=== PATIENT | male | born 1935 | race Caucasian/White ===

== ENCOUNTER 2016-10-03 06:16 | Observation (INO) | payer OTHER ==
[~2016-10-03] VITALS: Ht 180.3 cm; Wt 67.1 kg
[2016-10-03] VITALS (12 sets, daily range): BP systolic 120–169; BP diastolic 47–82
[~2016-10-03 06:16] MED LIST: AMLO5TAB2 PO; ASPI-482 PO; CLOP75TA PO; COLE3.753 PO; COLE625T12 PO; DONE5TAB56 PO; DOXY50CA PO; FINA5TAB4 PO; FURO40TA4 PO; HYDR12.53 PO; LISI40TA PO; MEMA5TAB PO; METO-269 PO; MULT-18 PO; NITR0.4T SL; OMEG1CAP27 PO; POTA20TA4 PO; PRAV40TA2 PO; SPIR25TA PO; TAMS0.4C97 PO
[2016-10-03] MEDS ORDERED: POTASSIUM CHLO10 MEQ PO (06:58)
[2016-10-03] MEDS ORDERED: MEMA28CA PO (06:58)
[2016-10-03] MEDS ORDERED: LOSA25TA4 PO (06:58)
[2016-10-03] MEDS ORDERED: DONE10TA7 PO (06:58)
[2016-10-03 07:08] LABS: HEMATOCRIT 48.9 % (39.0-53.0); HEMOGLOBIN 16.3 g/dL (13.0-17.5); RED BLOOD COUNT 5.15 x10^6/uL (4.30-5.70)
[2016-10-03 07:15] LABS: CALCIUM 9.6 mg/dL (8.5-10.1); CREATININE 1.2 mg/dL (0.7-1.3); POTASSIUM 4.2 mmol/L (3.5-5.1)
[2016-10-03] MEDS ORDERED: IODIXANOL 320 MG/ML 100 ML VIAL. ONE (07:17)
[2016-10-03] MEDS ORDERED: LIDOCAINE 2% 20 ML VIAL. ONE (07:17)
[2016-10-03 07:28] LABS: PROTHROMBIN TIME PATIENT 12.7 SEC (11.7-14.0)
[2016-10-03] MEDS ORDERED: NITROGLYCERIN 4 MG/20 ML SYRINGE for CATH LAB. ONE ×2 (08:00→08:06)
[2016-10-03] MEDS ORDERED: MIDAZOLAM HCL/PF 5 MG/5 ML VIAL. ONE (08:06)
[2016-10-03] MEDS ORDERED: dilTIAZem IV PUSH 25 MG/5 ML VIAL ONE (08:06)
[2016-10-03] MEDS ORDERED: fentaNYL PF VIAL 250 MCG/5 ML VIAL ONE (08:06)
[2016-10-03] MEDS ORDERED: HEPARIN for IV BOLUS 10,000 UNIT/10 ML VIAL. ONE ×2 (08:06→08:55)
--- NOTE | 2016-10-03 08:08 | PDOC ---
MODERATE SEDATION ASSESSMENT RISKS/ALTERNATIVES Risks/Alternatives Risks and alternatives of this type of sedation and procedure discussed with: RISK/ALTERNATIVES: Patient H & P ON CHART H & P H & P on chart and reviewed for co-morbid conditions and appropriate labs. H&P ON CHART: Yes STATUS PREG STATUS ASSESSED: N/A MEDS/ALLERGIES REVIEWED Meds/Allergies Reviewed Medications and Allergies including time and route of recently administered narcotics and sedatives. MEDS/ALLERGIES REVIEWED: Yes ASA RATING ASA RATING: II AIRWAY ASSESSMENT Airway Assessment Airway patency, oral function limitations, presence of caps, crowns, dentures, partials, and ability to extend neck assessed. AIRWAY ASSESSMENT: Yes MALLAMPATI SCORE MALLAMPATI SCORE: II PRE-SEDATION ASSESSMENT PRE-SEDATION ASSESSMENT: Yes JUAN R FUNES MD Oct 03, 2016 08:08
[2016-10-03] MEDS ORDERED: MIDAZOLAM HCL/PF 5 MG/5 ML VIAL. IV ONE (08:45)
[2016-10-03] MEDS ORDERED: LIDOCAINE 2% 20 ML VIAL. IJ ONE (08:45)
[2016-10-03] MEDS ORDERED: fentaNYL PF VIAL 250 MCG/5 ML VIAL IV ONE (08:45)
[2016-10-03] MEDS ORDERED: IODIXANOL 320 MG/ML 100 ML VIAL. IART ONE (08:45)
[2016-10-03] MEDS ORDERED: NITROGLYCERIN 200 MCG/2 ML SYRINGE FOR CATH/VASC LAB. ONE ×2 (08:55→09:23)
[2016-10-03] MEDS ORDERED: VERAPAMIL 5 MG/2 ML VIAL. ONE (08:55)
[2016-10-03] MEDS ORDERED: HEPARIN for IV BOLUS 10,000 UNIT/10 ML VIAL. IART ONE (09:00)
[2016-10-03] MEDS ORDERED: NITROGLYCERIN 200 MCG/2 ML SYRINGE FOR CATH/VASC LAB. IART ONE (09:00)
[2016-10-03] MEDS ORDERED: VERAPAMIL 5 MG/2 ML VIAL. IART ONE (09:00)
[2016-10-03] MEDS ORDERED: HEPARIN for IV BOLUS 10,000 UNIT/10 ML VIAL. IV ONE (10:15)
[2016-10-03] MEDS: IV 1/2 NORMAL SALINE 1,000 ML IV SCH ×2 (10:26→20:26)
[2016-10-03] MEDS ORDERED: ACETAMINOPHEN 325 MG TABLET. PO PRN (10:30)
[2016-10-03] MEDS ORDERED: NITROGLYCERIN SUBLINGUAL 0.4 MG BOTTLE OF 25. SL PRN ×2 (10:30→16:00)
--- NOTE | 2016-10-03 10:41 | CARD ---
APPROVED REPORT Patient StatusOUT-PATIENT Screedman: Ezekiel Puentes, RT (R) Procedure(s) performed: 1. Successful orbital atherectomy/HEALTH CARE SANITARY TECHNICIAN to the right superficial femoral arter y via right posterior tibial access 2. Successful balloon HEALTH CARE SANITARY TECHNICIAN to the right posterior tibial artery INDICATION FOR PROCEDURE The indication(s) include : 81-year-old male recently underwent atherectomy/HEALTH CARE SANITARY TECHNICIAN/stent placement to le ft superficial femoral artery on 08/05/16 for peripheral vascular disease with claudication. He presen michelle today for staged atherectomy/HEALTH CARE SANITARY TECHNICIAN to the right superficial femoral and right posterior tibial radha jermaine.. PROCEDURE NARRATIVE After explaining the risks, benefits and alternative options, informed consent was obtained from zayda ent. Patient was brought to the [facility] and his right foot was prepped and draped in the usua l fashion. Arterial access was obtained in the right posterior tibial artery under ultrasound guidanc e and 6 Cymraes sheath was inserted. A 4 Cymraes angled glide catheter was advanced over a 0.014 inch c ommand guidewire and with the tip positioned in right common femoral artery, angiography was performe d that confirmed the previously described multiple 70-90% stenoses in the mid and distal segments of right superficial femoral artery and 90% stenosis involving the proximal segment of the right posteri or tibial artery. The right anterior tibial artery showed 100% long and chronic total occlusion in th e proximal and mid segments with distal reconstitution from collaterals. The glide catheter was then exchanged over a 0.014 inch viper guidewire to a 1.5 CSI stealth orbital atherectomy catheter and multiple atherectomy passes were performed within the mid and distal segment s of the right superficial femoral artery. Following this, a 3.0 x 40 mm Lopez armada balloon was us ed to dilate the stenosis in the proximal segment of the right posterior tibial artery. A 5.5 x 1 20 mm Lopez armada balloon was then used to dilate the lesions in the mid and distal segments of the ri ght superficial femoral artery. Follow-up angiography showed resolution of all the stenoses to 0% wit h good distal flow. Patient tolerated the procedure well. Hemostasis was achieved using manual compre ssion after attempts to use TR band failed. There were no immediate complications. Conclusion Successful orbital atherectomy/HEALTH CARE SANITARY TECHNICIAN to the right superficial femoral artery and balloon HEALTH CARE SANITARY TECHNICIAN to the rig ht posterior tibial artery via right posterior tibial artery access.
[2016-10-03] MEDS: FUROSEMIDE 40 MG TABLET. PO SCH (17:00)
[2016-10-03] MEDS: DONEPEZIL HCL 10 MG TABLET. PO SCH (17:00)
[2016-10-03] MEDS: MULTIVITAMIN with MINERAL TABLET. PO SCH (17:00)
[2016-10-03] MEDS: POTASSIUM CHLORIDE 10 MEQ TABLET.ER. PO SCH (17:00)
[2016-10-03] MEDS: LOSARTAN POTASSIUM 25 MG TABLET. PO SCH (18:27)
[2016-10-03] MEDS ORDERED: TAMSULOSIN 0.4 MG CAP.ER.24H. PO SCH (21:00)
[2016-10-03] MEDS: OMEGA-3 FATTY ACIDS/FISH OIL 1,000 MG CAPSULE. PO SCH (21:29)
[2016-10-03] MEDS: MEMANTINE 10 MG TABLET. PO SCH (21:29)
[2016-10-04 03:23] VITALS: BP 141/55
[2016-10-04 05:02] LABS: CALCIUM 9.3 mg/dL (8.5-10.1); GFR 71.5; POTASSIUM 4.5 mmol/L (3.5-5.1)
[2016-10-04] MEDS: IV 1/2 NORMAL SALINE 1,000 ML IV SCH (06:26)
[2016-10-04 07:00] VITALS: BP 126/67
--- NOTE | 2016-10-04 08:37 | PDOC3 ---
CRISTELA DAVID FINISHING MACHINE OPERATOR 10/04/16 0837: Discharge Summary Visit Information Date of Admission: Oct 03, 2016 Date of Discharge: Oct 04, 2016 Admitting Diagnosis Comment: 1. PVD with claudication 2. ischemic cardiomyopathy, LVEF 35-40% 3 chronic systolic HF 4. CAD with history of PCI/CASSANDRA to RCA and LAD 5. HTN, benign essential 6. HLD with statin intolerance 7. tobacco abuse 8. Alzheimer's disease Final Diagnosis 1. PVD with claudication; s/p orbital atherectomy/SALES ENABLEMENT SPECIALIST to the right superficial femoral artery and balloon SALES ENABLEMENT SPECIALIST to the right posterior tibial artery 2. ischemic cardiomyopathy, LVEF 35-40% 3 chronic systolic HF 4. CAD with history of PCI/CASSANDRA to RCA and LAD 5. HTN, benign essential 6. HLD with statin intolerance 7. tobacco abuse 8. Alzheimer's disease Brief Hospital Course Allergies Allergies Coded Allergies Type Severity Reaction Last Updated Verified atorvastatin Adverse Reaction Intermediate 01/11/14 Yes rosuvastatin Adverse Reaction Intermediate MUSCLE PAIN 02/23/16 Yes Vital Signs Vital Signs Date Time Temp Pulse Resp B/P (MAP) Pulse Ox O2 Delivery O2 Flow Rate FiO2 10/04/16 07:00 98.1 88 19 126/67 (86) 95 Room Air 98.1 10/03/16 10:14 2.0 Lab Results Laboratory Tests Test 10/03/16 07:00 10/04/16 04:00 White Blood Count 10.0 x10^3/uL (4.0-11.0) Red Blood Count 5.15 x10^6/uL (4.30-5.70) Hemoglobin 16.3 g/dL (13.0-17.5) Hematocrit 48.9 % (39.0-53.0) Mean Corpuscular Volume 95 fL (79-100) Mean Corpuscular Hemoglobin 32 pg (25-35) Mean Corpuscular Hemoglobin Concent 33 g/dL (31-37) Red Cell Distribution Width 15.0 % (11.5-14.5) Platelet Count 251 x10^3/uL (140-400) Prothrombin Time 12.7 SEC (11.7-14.0) Prothromb Time International Ratio 1.0 (0.8-1.1) Activated Partial Thromboplast Time 32 SEC (24-38) Sodium Level 145 mmol/L (136-145) 143 mmol/L (136-145) Potassium Level 4.2 mmol/L (3.5-5.1) 4.5 mmol/L (3.5-5.1) Chloride Level 106 mmol/L (98-107) 107 mmol/L (98-107) Carbon Dioxide Level 33 mmol/L (21-32) 30 mmol/L (21-32) Anion Gap 6 (6-14) 6 (6-14) Blood Urea Nitrogen 27 mg/dL (8-26) 20 mg/dL (8-26) Creatinine 1.2 mg/dL (0.7-1.3) 1.0 mg/dL (0.7-1.3) Estimated GFR (Cockcroft-Gault) 58.0 71.5 Glucose Level 125 mg/dL (70-99) 109 mg/dL (70-99) Calcium Level 9.6 mg/dL (8.5-10.1) 9.3 mg/dL (8.5-10.1) Laboratory Tests Test 10/04/16 04:00 Sodium Level 143 mmol/L (136-145) Potassium Level 4.5 mmol/L (3.5-5.1) Chloride Level 107 mmol/L (98-107) Carbon Dioxide Level 30 mmol/L (21-32) Anion Gap 6 (6-14) Blood Urea Nitrogen 20 mg/dL (8-26) Creatinine 1.0 mg/dL (0.7-1.3) Estimated GFR (Cockcroft-Gault) 71.5 Glucose Level 109 mg/dL (70-99) Calcium Level 9.3 mg/dL (8.5-10.1) Brief Hospital Course Mr. Lawrence is a 81 old male returning for a staged intervention to the right SFA and SALES ENABLEMENT SPECIALIST. He previously underwent atherectomy/SALES ENABLEMENT SPECIALIST/stent placement to left superficial femoral artery on 08/05/16 and was re-evaluated in the office on 09/26. He was known to have significant residual stenosis in the right SFA and right anterior tibial arteries and intervention on those vessels was discussed with him. He underwent orbital atherectomy/SALES ENABLEMENT SPECIALIST to the right superficial femoral artery and balloon SALES ENABLEMENT SPECIALIST to the right posterior tibial artery via right posterior tibial artery access on 10/03/2016. He has been monitored overnight without complications. Right PT palpable and DP by Doppler, though faintly palpable this a.m. Right foot warm; no evidence of non-healing wounds or lesions. Discharge instructions given to patient and to be reviewed with nephew with whom he lives. Discharge Information Condition at Discharge: Stable Follow Up: Weeks (4 weeks with Cardiology; PCP in 7 - 10 days) Disposition/Orders: D/C to Home Scheduled Aspirin (Aspir 81), 1 TAB PO DAILY, (Reported) Clopidogrel Bisulfate (Clopidogrel), 75 MG PO DAILY Donepezil Hcl (Donepezil Hcl), 1 TAB PO DAILY, (Reported) Furosemide (Furosemide), 40 MG PO DAILY Losartan Potassium (Losartan Potassium), 25 MG PO DAILY, (Reported) Memantine Hcl (Namenda Xr), 28 MG PO DAILY, (Reported) Metoprolol Succinate (Toprol Xl), 50 MG PO DAILY, (Reported) Multivitamin (Daily Vitamin), 1 EACH PO DAILY, (Reported) Byers-3 Fatty Acids/Fish Oil (Fish Oil 1,000 Mg Softgel), 1 EACH PO BID Potassium Chloride (Potassium Chloride), 10 MEQ PO DAILY, (Reported) Tamsulosin Hcl (Flomax), 0.4 MG PO QHS Scheduled PRN Nitroglycerin (Nitrostat), 0.4 MG SL PRN Q5MIN PRN for CHEST PAIN Patient Instructions Patient Instructions GENERAL INSTRUCTIONS: 1. Your dressing should be removed prior to leaving the hospital. 2. It is OK to shower the day after your procedure. 3. If you received stents, be sure to carry your stent information card with you in your wallet/purse at all times. 4. Call the office immediately at [phone] if you notice any fever or if there is redness, worsening tenderness/pain, increased bruising, or drainage from the puncture site. 5. Should you have bleeding from the site, lie down immediately & put pressure on the site. The pressure should be hard enough to stop the bleeding. Have the nearest person call 911. DO NOT try to drive to the ER with active bleeding. 6. If you notice a change in color, coolness to touch, or loss of feeling in the affected extremity, come to the emergency room. Please have someone drive you or call 911 if no one is available. DO NOT drive yourself. 7. If you normally take glucophage (metformin), please do not take this medicine for 48 hours following your procedure. 8. DO NOT STOP TAKING YOUR PLAVIX OR ASPIRIN UNLESS IT IS CLEARED BY A CUSTOMER OPERATIONS SPECIALIST OF YOUR PRODUCE WRAPPER AT OUR OFFICE. 9. QUIT SMOKING: the [place] [employer], [employer] [employer], & [employer] [employer] have cessation resources available on their websites 10. Please have someone available to drive you home from the hospital as you may be limited by sedation medications given during the procedure. Femoral (Groin) access: 1. Do no lifting, pushing, pulling, bending, stooping, or recurrent stair climbing for 3 days following your procedure. 2. Once past the first 3 days, do not do any HEAVY exertion or lifting for one week following the procedure. No gym workouts, running, lifting greater than a gallon of milk, etc 3. Do not submerge in bath or pool for [address] 3 days following your procedure, but if going long distance, do not go alone & take hourly breaks to get out of car and walk around. Call the office at [phone] for any questions or concerns. WESTON STOREY MD 10/04/16 1009: Discharge Summary Brief Hospital Course Brief Hospital Course Pt. seen and examined. Agree with above CURTAIN STITCHER note. 81 y.o male s/p R SFA SALES ENABLEMENT SPECIALIST, No events overnight. R leg is warm to touch. Good PT pulse Ok to DC. Discharge Information Scheduled Aspirin (Aspir 81), 1 TAB PO DAILY, (Reported) Clopidogrel Bisulfate (Clopidogrel), 75 MG PO DAILY Donepezil Hcl (Donepezil Hcl), 1 TAB PO DAILY, (Reported) Furosemide (Furosemide), 40 MG PO DAILY Losartan Potassium (Losartan Potassium), 25 MG PO DAILY, (Reported) Memantine Hcl (Namenda Xr), 28 MG PO DAILY, (Reported) Metoprolol Succinate (Toprol Xl), 50 MG PO DAILY, (Reported) Multivitamin (Daily Vitamin), 1 EACH PO DAILY, (Reported) Byers-3 Fatty Acids/Fish Oil (Fish Oil 1,000 Mg Softgel), 1 EACH PO BID Potassium Chloride (Potassium Chloride), 10 MEQ PO DAILY, (Reported) Tamsulosin Hcl (Flomax), 0.4 MG PO QHS Scheduled PRN Nitroglycerin (Nitrostat), 0.4 MG SL PRN Q5MIN PRN for CHEST PAIN CRISTELA DAVID FINISHING MACHINE OPERATOR Oct 04, 2016 08:37 WESTON STOREY MD Oct 04, 2016 10:09
[2016-10-04] MEDS: FUROSEMIDE 40 MG TABLET. PO SCH (08:38)
[2016-10-04] MEDS: MEMANTINE 10 MG TABLET. PO SCH (08:38)
[2016-10-04] MEDS: POTASSIUM CHLORIDE 10 MEQ TABLET.ER. PO SCH (08:38)
[2016-10-04] MEDS: DONEPEZIL HCL 10 MG TABLET. PO SCH (08:38)
[2016-10-04] MEDS: OMEGA-3 FATTY ACIDS/FISH OIL 1,000 MG CAPSULE. PO SCH (08:38)
[2016-10-04] MEDS: MULTIVITAMIN with MINERAL TABLET. PO SCH (08:38)
[2016-10-04] MEDS: LOSARTAN POTASSIUM 25 MG TABLET. PO SCH (08:39)
[2016-10-04] MEDS ORDERED: CLOPIDOGREL BISULFATE 75 MG TABLET PO SCH (09:00)
[2016-10-04] MEDS ORDERED: ASPIRIN ENTERIC COATED 81 MG TABLET.DR. PO SCH (09:00)
[2016-10-04 11:09] VITALS: BP 143/57
== END 2016-10-04 14:00 | disposition home or self-care (01) ==
LOC: CCL 06:16 → 2 NORTH 09:25 → INTOOBSV 09:25 → 2 NORTH 10:45
PROVIDERS: ADMIT Internal Medicine Cardiovascular Disease; ATTEND Internal Medicine Cardiovascular Disease
DX: I73.9 Peripheral vascular disease, unspecified (principal); I25.5 Ischemic cardiomyopathy; I11.0 Hypertensive heart disease with heart failure; I50.22 Chronic systolic (congestive) heart failure; I25.10 Atherosclerotic heart disease of native coronary artery without angina pectoris; E78.5 Hyperlipidemia, unspecified; G30.9 Alzheimer's disease, unspecified; F02.80 Dementia in other diseases classified elsewhere, unspecified severity, without behavioral disturbance, psychotic disturbance, mood disturbance, and anxiety; Z72.0 Tobacco use; Z98.61 Coronary angioplasty status
CPT/HCPCS: 36415; 37225; 37228; 76937; 80048; 85027; 85610; 85730; C1769; C1885; C1892; C1894; G0378; G0379; J2250; J3010; J3490; J7030; 99156; 99157

== ENCOUNTER 2016-10-12 17:37 | Emergency (ER) | payer OTHER ==
[~2016-10-12] VITALS: Ht 177.8 cm; Wt 67.1 kg
[~2016-10-12 17:37] MED LIST changes: +DONE10TA7 PO; +LOSA25TA4 PO; +MEMA28CA PO; +POTASSIUM CHLO10 MEQ PO
--- NOTE | 2016-10-12 18:00 | PHYS DOC ---
Adult General Chief Complaint Chief Complaint: LOWER EXTREMITY SWELLING HPI HPI Patient is a 81 year old M who presents with increased swelling and numbness and tingling to the right lower extremity status post stent placement in the extremity last week. Patient denies any chest pain or shortness of breath. Patient denies any fevers. Patient denies any nausea/vomiting/diarrhea. Patient states the swelling in the right lower extremity was not as pronounced yesterday as it is today. Patient did not have numbness or tingling yesterday. Patient able to move all toes. Pertinent exam findings: +2 pitting edema to lower extremity bilaterally pulses obtained with Doppler ED course: Patient was seen and examined the emergency room CBC, CMP, lactic acid, ultrasound arterial the right lower extremity was ordered 1749: EKG shows normal sinus rhythm rate of 91 no STEMI 2024: Updated patient on ultrasound results and lab work and discussed possibly admitting the patient to the hospital. Patient adamantly states he does not want admitted to the hospital understanding all risks including and disability. Explained to the patient the concerns for possible arterial occlusion given his severe peripheral vascular disease and recommended patient be admitted for further observation and management. Pertinent findings: Arterial ultrasound of the right lower extremity, no arterial occlusion Lactic acid 1.4 MDM: After reviewing the chart, CC/HPI/PMH, physical exam, [lab results], [ radiological results], I do not believe the patient has acute arterial occlusion of the right lower extremity however the patient is high risk secondary to his severe peripheral vascular disease and recent stent placement. Recommended patient be admitted hospital for further evaluation and management in which he declined understanding all risks including and disability. Patient will be discharged home per his wishes. Commended patient follow-up with his PCP and vice president marketing & development in one to 2 days. Additional verbal discharge instructions were provided to the patient and that if symptoms get worse or any new symptoms arise that are worrisome to the patient he is to return to the emergency room immediately Review of Systems Review of Systems GEN: Denies fevers, chills, sweats HEENT: Denies blurred vision, sore throat CV: Denies chest pain RESP: Denies shortness of air, cough GI: Denies n/v/d NEURO: Denies confusion, dizziness MSK: Leg swelling Allergies Allergies Allergies Coded Allergies Type Severity Reaction Last Updated Verified atorvastatin Adverse Reaction Intermediate 01/11/14 Yes rosuvastatin Adverse Reaction Intermediate MUSCLE PAIN 11/12/16 Yes Physical Exam Physical Exam GEN.: No apparent distress. Alert and oriented. HEENT: Head is normocephalic, atraumatic NECK: Supple. LUNGS: CTAB. HEART: 4/6 MELLISA, S1, S2 present. Peripheral pulses intact ABDOMEN: Soft, nontender. Positive bowel sounds. EXTREMITIES: Without any cyanosis. +2 pitting edema to lower show is bilaterally with pulses obtained by Doppler, dorsal pedis and posterior tibialis NEUROLOGIC: Normal speech, normal tone PSYCHIATRIC: Normal affect, normal mood. SKIN: No ulcerations Current Patient Data Vital Signs Vital Signs Date Time Temp Pulse Resp B/P (MAP) Pulse Ox O2 Delivery O2 Flow Rate FiO2 10/12/16 19:15 72 18 165/60 (95) 99 Room Air 10/12/16 17:48 98.1 98.1 Lab Values Laboratory Tests Test 10/12/16 17:55 10/12/16 19:45 White Blood Count 11.5 x10^3/uL (4.0-11.0) H Red Blood Count 5.05 x10^6/uL (4.30-5.70) Hemoglobin 15.9 g/dL (13.0-17.5) Hematocrit 46.6 % (39.0-53.0) Mean Corpuscular Volume 92 fL (79-100) Mean Corpuscular Hemoglobin 32 pg (25-35) Mean Corpuscular Hemoglobin Concent 34 g/dL (31-37) Red Cell Distribution Width 13.9 % (11.5-14.5) Platelet Count 290 x10^3/uL (140-400) Neutrophils (%) (Auto) 58 % (31-73) Lymphocytes (%) (Auto) 23 % (24-48) L Monocytes (%) (Auto) 9 % (0-9) Eosinophils (%) (Auto) 8 % (0-3) H Basophils (%) (Auto) 2 % (0-3) Neutrophils # (Auto) 6.7 x10^3uL (1.8-7.7) Lymphocytes # (Auto) 2.7 x10^3/uL (1.0-4.8) Monocytes # (Auto) 1.0 x10^3/uL (0.0-1.1) Eosinophils # (Auto) 0.9 x10^3/uL (0.0-0.7) H Basophils # (Auto) 0.2 x10^3/uL (0.0-0.2) Sodium Level 139 mmol/L (136-145) Potassium Level 4.2 mmol/L (3.5-5.1) Chloride Level 102 mmol/L (98-107) Carbon Dioxide Level 29 mmol/L (21-32) Anion Gap 8 (6-14) Blood Urea Nitrogen 19 mg/dL (8-26) Creatinine 0.9 mg/dL (0.7-1.3) Estimated GFR (Cockcroft-Gault) 80.8 BUN/Creatinine Ratio 21 (6-20) H Glucose Level 113 mg/dL (70-99) H Calcium Level 9.5 mg/dL (8.5-10.1) Total Bilirubin 0.4 mg/dL (0.2-1.0) Aspartate Amino Transferase (AST) 23 U/L (15-37) Alanine Aminotransferase (ALT) 22 U/L (16-63) Alkaline Phosphatase 102 U/L (46-116) Total Protein 7.5 g/dL (6.4-8.2) Albumin 3.2 g/dL (3.4-5.0) L Albumin/Globulin Ratio 0.7 (1.0-1.7) L Lactic Acid Level 1.4 mmol/L (0.4-2.0) Laboratory Tests 10/12/16 17:55 Laboratory Tests 10/12/16 17:55 EKG EKG 1750: EKG shows normal sinus rhythm rate of 91 no STEMI[] Radiology/Procedures Radiology/Procedures Ultrasound of the right lower extremity arterial, peripheral vascular disease no acute arterial occlusion [] Course & Med Decision Making Course & Med Decision Making Pertinent Labs and Imaging studies reviewed. (See chart for details) [] Dragon Disclaimer Dragon Disclaimer This electronic medical record was generated, in whole or in part, using a voice recognition dictation system. Departure Departure Impression: Primary Impression: PVD (peripheral vascular disease) with claudication Additional Impression: Leg edema Disposition: HOME, SELF-CARE Condition: STABLE Referrals: YAQUELIN LUJAN MD (PCP) Patient Instructions: Peripheral Vascular Disease Additional Instructions: Please follow up with her family doctor in one to 2 days Problem Qualifiers CLARITA CHILEL DO Oct 12, 2016 18:00
[2016-10-12 18:06] LABS: BASO # 0.2 x10^3/uL (0.0-0.2); BASO % 2 % (0-3); EOS % 8 % (0-3); HEMATOCRIT 46.6 % (39.0-53.0); HEMOGLOBIN 15.9 g/dL (13.0-17.5); LYMPH # 2.7 x10^3/uL (1.0-4.8); LYMPH % 23 % (24-48); MEAN CORPUSCULAR HEMOGLOBIN 32 pg (25-35); MEAN CORPUSCULAR HGB CONC 34 g/dL (31-37); MEAN CORPUSCULAR VOLUME 92 fL (79-100); MONO % 9 % (0-9); NEUT % 58 % (31-73); PLATELET COUNT 290 x10^3/uL (140-400); RED BLOOD COUNT 5.05 x10^6/uL (4.30-5.70); RED CELL DISTRIBUTION WIDTH 13.9 % (11.5-14.5); WHITE BLOOD COUNT 11.5 x10^3/uL (4.0-11.0)
[2016-10-12 18:16] LABS: CALCIUM 9.5 mg/dL (8.5-10.1); CREATININE 0.9 mg/dL (0.7-1.3); GFR 80.8; POTASSIUM 4.2 mmol/L (3.5-5.1)
[2016-10-12 18:21] LABS: ALBUMIN 3.2 g/dL (3.4-5.0); ALBUMIN/GLOBULIN RATIO 0.7 (1.0-1.7); TOTAL BILIRUBIN 0.4 mg/dL (0.2-1.0); TOTAL PROTEIN 7.5 g/dL (6.4-8.2)
[2016-10-12 19:15] VITALS: BP 165/60
--- NOTE | 2016-10-12 19:41 | RAD ---
Examination: Ultrasound right lower extremity arterial duplex HISTORY: History of right foot swelling, stent in the right superior femoral artery COMPARISON: None available TECHNIQUE: Grayscale, color Doppler 2-D, spectral waveform analysis of the right lower extremity arterial system were performed FINDINGS: The velocity in the right common femoral artery is 196 cm/s. Deep femoral artery 190 cm/s. Proximal SFA 141 cm/s. Mid SFA 133 cm/s. Distal SFA 160 cm/s. Popliteal artery 86 cm/s. Proximal WELFARE SERVICE AIDE 99 cm/s. Distal WELFARE SERVICE AIDE 60 cm/s. Peroneal artery 45 cm Anterior tibialis artery 89 cm/s. Dorsalis pedis artery 46 cm/s. Biphasic waveforms identified in the CONCESSION SUPERVISOR, SFA, popliteal, anterior tibialis artery. Monophasic wave forms identified in the posterior tibialis artery, peroneal artery and dorsalis pedis artery. Atherosclerotic plaque identified through the right lower extremity arterial system. IMPRESSION: 1. No evidence of hemodynamic significant stenosis. 2. Atherosclerotic plaque identified throughout the right lower extremity arterial system. Monophasic and biphasic waveforms in the right lower extremity likely due to proximal atherosclerotic disease. Electronically signed by: Arron Hinds MD (10/12/2016 7:39 PM)
--- NOTE | 2016-10-13 07:00 | EKG ---
[facility] [address] [place] [address] Test Date: 2016-10-12 Test Time: 17:46:09 Pat Name: CRISTOFER RATLIFF Department: Room: Gender: M Microbiology Analyst: : [id number] Requested By: CLARITA CHILEL Order Number: [id number] Reading MD: Measurements Intervals [place] Rate: 91 P: 54 MT: 132 QRS: 30 QRSD: 108 T: -2 QT: 356 QTc: 440 Interpretive Statements SINUS RHYTHM LEFT ATRIAL ABNORMALITY QRS(T) CONTOUR ABNORMALITY CONSIDER ANTEROLATERAL MYOCARDIAL DAMAGE CONSISTENT WITH INFERIOR INFARCT AGE UNDETERMINED ABNORMAL ECG RI6.01 No previous ECG available for comparison
== END 2016-10-12 20:45 | disposition home or self-care (01) ==
LOC: ER 17:37
DX: I70.211 Atherosclerosis of native arteries of extremities with intermittent claudication, right leg (principal); Z88.8 Allergy status to other drugs, medicaments and biological substances
CPT/HCPCS: 36415; 80053; 83605; 85027; 93005; 93923; 99285-25

== ENCOUNTER → 2017-08-18 | Outpatient (CLI) | payer OTHER | END | disposition home or self-care (01) | LOC: KCIC 14:50 | DX: J44.9 Chronic obstructive pulmonary disease, unspecified (principal); F17.210 Nicotine dependence, cigarettes, uncomplicated; R63.4 Abnormal weight loss | CPT/HCPCS: 71046 ==

== ENCOUNTER → 2017-09-25 | Outpatient (CLI) | payer OTHER | END | disposition home or self-care (01) | LOC: ECHO 07:50 | DX: I50.22 Chronic systolic (congestive) heart failure (principal); I08.0 Rheumatic disorders of both mitral and aortic valves; E78.5 Hyperlipidemia, unspecified | CPT/HCPCS: 93306 ==

== ENCOUNTER 2019-12-23 21:55 | Inpatient (IN) | payer MEDICARE ==
[~2019-12-23] VITALS: Ht 172.7 cm; Wt 51.2 kg
[~2019-12-23 21:55] MED LIST changes: +ACET325T21 PO; +ALBU2.5V14 NEB; +AMLO5TAB10 PO; -AMLO5TAB2 PO; +ATOR40TA59 PO; +DONE5TAB7 PO; -HYDR12.53 PO; +HYDR12.575 PO; +IPRA0.2S5 NEB; +LISI-130 PO; -LISI40TA PO; -LOSA25TA4 PO; +LOSA25TA54 PO; -NITR0.4T SL; +NITR0.4T24 SL; +POLY2500 PO; +POTA10TA12 PO; -POTASSIUM CHLO10 MEQ PO; +SERT50TA PO; +SPIR25TA5 PO
--- NOTE | 2019-12-23 22:01 | PHYS DOC ---
Past Medical History Past Medical History: CAD, CHF, Dementia, Depression, High Cholesterol, H ypertension, Other Additional Past Medical Histor: PVD, CARDIOMYOPATHY, OSTEOARTHRITIS, BRADYCARDIA, BPH Past Surgical History: Other Additional Past Surgical Histo: STENTS Smoking Status: Current Every Day Smoker Alcohol Use: None Drug Use: None General Adult EDM: Chief Complaint: SHORT OF AIR HPI: HPI: Patient is a 84 year old male arrives via EMS with a chief complaint of shortness of breath. History physical review of systems are limited due to altered mental status. Reportedly patient has been battling pneumonia at the long term and is on baseline 4 L oxygen but they cannot keep it on him and has had low oxygen levels. Patient is satting 98 to 99% on 4 L here. On my assessment patient denies any pain any shortness of breath or any complaints. History physical review of systems limited due to altered mental status. Per report patient had a COVID-19 90 days ago Review of Systems: Review of Systems: Review of systems unobtainable due to altered mental status but patient denies any complaints Heart Score: Risk Factors: Risk Factors: DM, Current or recent (<one month) smoker, HTN, HLP, family history of CAD, obesity. Risk Scores: Score 0 - 3: 2.5% MACE over next 6 weeks - Discharge Home Score 4 - 6: 20.3% MACE over next 6 weeks - Admit for Clinical Observation Score 7 - 10: 72.7% MACE over next 6 weeks - Early Invasive Strategies Allergies: Allergies: Allergies Coded Allergies Type Severity Reaction Last Updated Verified No Known Drug Allergies 06/12/19 No Physical Exam: PE: Constitutional: Well developed, well nourished, no acute distress, non-toxic appearance. [] HENT: Normocephalic, atraumatic, bilateral external ears normal, slightly dry oral mucosa nose normal. [] Eyes: PERRLA, EOMI, conjunctiva normal, no discharge. [] Neck: Normal range of motion, no tenderness, supple, no stridor. [] Cardiovascular:Heart rate regular rhythm, peripheral pulses intact, cap refill brisk Lungs & Thorax: Diminished breath sounds bilaterally, right greater than left Abdomen: Soft nontender Skin: Warm, dry, no erythema, no rash. [] Back: No tenderness, no CVA tenderness. [] Extremities: 1+ bilateral lower extremity edema Neurologic: Alert and oriented X 1, normal motor function, normal sensory function, no focal deficits noted. [] Psychologic: Affect normal, judgement normal, mood normal. [] Current Patient Data: Labs: Laboratory Tests Test 12/23/19 22:52 12/23/19 23:25 White Blood Count 9.7 x10^3/uL Red Blood Count 4.16 x10^6/uL Hemoglobin 13.1 g/dL Hematocrit 40.0 % Mean Corpuscular Volume 96 fL Mean Corpuscular Hemoglobin 32 pg Mean Corpuscular Hemoglobin Concent 33 g/dL Red Cell Distribution Width 16.7 % Platelet Count 226 x10^3/uL Neutrophils (%) (Auto) 79 % Lymphocytes (%) (Auto) 11 % Monocytes (%) (Auto) 8 % Eosinophils (%) (Auto) 1 % Basophils (%) (Auto) 1 % Neutrophils # (Auto) 7.6 x10^3/uL Lymphocytes # (Auto) 1.0 x10^3/uL Monocytes # (Auto) 0.8 x10^3/uL Eosinophils # (Auto) 0.1 x10^3/uL Basophils # (Auto) 0.1 x10^3/uL Prothrombin Time 13.5 SEC Prothromb Time International Ratio 1.1 Activated Partial Thromboplast Time 28 SEC Lactic Acid Level 1.0 mmol/L Sodium Level 144 mmol/L Potassium Level 4.5 mmol/L Chloride Level 109 mmol/L Carbon Dioxide Level 32 mmol/L Anion Gap 3 Blood Urea Nitrogen 20 mg/dL Creatinine 0.9 mg/dL Estimated GFR (Cockcroft-Gault) 80.2 BUN/Creatinine Ratio 22 Glucose Level 154 mg/dL Calcium Level 8.9 mg/dL Total Bilirubin 0.4 mg/dL Aspartate Amino Transf (AST/SGOT) 19 U/L Alanine Aminotransferase (ALT/SGPT) 34 U/L Alkaline Phosphatase 112 U/L Troponin I Quantitative 0.101 ng/mL PP-Ylx-[id number]-Type Natriuretic Peptide > 87561 pg/mL Total Protein 6.1 g/dL Albumin 2.8 g/dL Albumin/Globulin Ratio 0.8 Lipase 39 U/L Current Medications Medications (Trade) Dose Ordered Sig/Yuni Route PRN Reason Start Time Stop Time Status Last Admin Dose Admin Piperacillin Sod/ Tazobactam Sod 3.375 gm/Sodium Chloride 50 ml @ 100 mls/hr 1X ONCE IV 12/23/19 23:30 12/23/19 23:59 DC 12/23/19 23:25 Levofloxacin/ Dextrose 150 ml @ 100 mls/hr 1X ONCE IV 12/23/19 23:30 12/24/19 00:59 DC 12/24/19 00:12 Furosemide (Lasix) 40 mg 1X ONCE IVP 12/23/19 23:30 12/23/19 23:31 DC 12/23/19 23:31 Aspirin (Aspirin Chewable) 324 mg 1X ONCE PO 12/24/19 01:00 12/24/19 01:01 DC Ondansetron HCl (Zofran) 4 mg PRN Q8HRS PRN IV NAUSEA/VOMITING 1ST CHOICE 12/24/19 00:45 12/25/19 00:44 Diltiazem HCl (Cardizem Iv Push) 10 mg 1X ONCE IVP 12/24/19 01:30 12/24/19 01:31 Diltiazem HCl 125 mg/Sodium Chloride 125 ml @ 5 mls/hr CONT PRN IV SEE I/O RECORD 12/24/19 01:30 EKG: EKG: [] EKG interpreted by il normal sinus rhythm with rate 85 normal axis frequent PVCs nonspecific ST changes normal intervals EKG interpreted by me atrial fibrillation with a rate of 128 normal axis, nonspecific ST changes Radiology/Procedures: Radiology/Procedures: [][facility] [address] [place] [address] IMAGING REPORT Signed PATIENT: CRISTOFER RATLIFF ACCOUNT: [id number] : 1935 LOCATION: ER AGE: 84 SEX: M EXAM STATUS: PRE ER ORD. PHYSICIAN: ABELARDO MCBRIDE MD REASON: COUGH PROCEDURE: PORTABLE CHEST 1V Examination: PORTABLE CHEST 1V History: COUGH / Comparison/Correlation: 06/12/2025 exam Findings: Portable upright frontal view of the chest was obtained. Heart size is normal. Pulmonary vasculature is congested. No pneumothorax. Right basilar moderate sized pleural effusion is present. Adjacent consolidation. Small left pleural effusion noted. Pulmonary vasculature is congested. Impression: Pulmonary vasculature congestion and moderate-sized right pleural effusion in the interval. Adjacent right basilar atelectasis or consolidation in the interval. Electronically signed by: Bertin Fitzpatrick MD (12/23/2019 10:32 PM) [facility] DICTATED and SIGNED BY: BERTIN FITZPATRICK MD DATE: 12/23/192231 Course & Med Decision Making: Course & Med Decision Making Pertinent Labs and Imaging studies reviewed. (See chart for details) [] 84-year-old male presents with shortness of breath. Patient not have CHF. Patient also has possible infiltrate and will be covered for hospital-acquired pneumonia. Patient be diuresed and given Lasix and aspirin. Discussed with Dr. Head who will admit. After admit orders written patient found to have heart rate jumped to 130. EKG shows A. fib with RVR. Cardizem bolus and drip has been ordered. Patient then had is rate controlled prior to Cardizem being administered. Dragon Disclaimer: Dragon Disclaimer: This electronic medical record was generated, in whole or in part, using a voice recognition dictation system. Departure Departure Impression: Primary Impression: Pleural effusion, right Additional Impressions: CHF (congestive heart failure) Atrial fibrillation with rapid ventricular response Disposition: ADMITTED INPATIENT Admitting Physician: Rick Head Condition: GUARDED Referrals: RICK HEAD MD (PCP) Justicifation of Admission Dx: Justifications for Admission: Justification of Admission Dx: Yes (CHF, EFFUSION ,HYPOXIA) ABELARDO MCBRIDE MD Dec 23, 2019 22:01
--- NOTE | 2019-12-23 22:34 | RAD ---
Examination: PORTABLE CHEST 1V History: COUGH / Comparison/Correlation: 06/12/2025 exam Findings: Portable upright frontal view of the chest was obtained. Heart size is normal. Pulmonary vasculature is congested. No pneumothorax. Right basilar moderate sized pleural effusion is present. Adjacent consolidation. Small left pleural effusion noted. Pulmonary vasculature is congested. Impression: Pulmonary vasculature congestion and moderate-sized right pleural effusion in the interval. Adjacent right basilar atelectasis or consolidation in the interval. Electronically signed by: Bertin Crain MD (12/23/2019 10:32 PM) [facility]
[2019-12-23 23:01] LABS: BASO # 0.1 x10^3/uL (0.0-0.2); BASO % 1 % (0-3); EOS # 0.1 x10^3/uL (0.0-0.7); EOS % 1 % (0-3); HEMOGLOBIN 13.1 g/dL (13.0-17.5); LYMPH % 11 % (24-48); MEAN CORPUSCULAR HEMOGLOBIN 32 pg (25-35); MEAN CORPUSCULAR HGB CONC 33 g/dL (31-37); MEAN CORPUSCULAR VOLUME 96 fL (79-100); MONO # 0.8 x10^3/uL (0.0-1.1); MONO % 8 % (0-9); NEUT # 7.6 x10^3/uL (1.8-7.7); NEUT % 79 % (31-73); PLATELET COUNT 226 x10^3/uL (140-400); RED BLOOD COUNT 4.16 x10^6/uL (4.30-5.70); RED CELL DISTRIBUTION WIDTH 16.7 % (11.5-14.5); WHITE BLOOD COUNT 9.7 x10^3/uL (4.0-11.0)
[2019-12-23 23:10] LABS: PROTHROMBIN TIME PATIENT 13.5 SEC (11.7-14.0)
[2019-12-23] MEDS ORDERED: FUROSEMIDE 40 MG/4 ML VIAL. IVP ONE (23:30)
[2019-12-23] MEDS ORDERED: PIPERACILLIN/TAZOBACTAM 3.375 GM in IV NORMAL SALINE 50ML 50 ML IV ONE (23:30)
[2019-12-23 23:45] LABS: CALCIUM 8.9 mg/dL (8.5-10.1); CREATININE 0.9 mg/dL (0.7-1.3); GFR 80.2; POTASSIUM 4.5 mmol/L (3.5-5.1)
[2019-12-23 23:51] LABS: ALBUMIN 2.8 g/dL (3.4-5.0); ALBUMIN/GLOBULIN RATIO 0.8 (1.0-1.7); TOTAL BILIRUBIN 0.4 mg/dL (0.2-1.0); TOTAL PROTEIN 6.1 g/dL (6.4-8.2)
[2019-12-24] MEDS ORDERED: ONDANSETRON PF 4 MG/2 ML VIAL. IV PRN (00:45)
[2019-12-24] MEDS ORDERED: ASPIRIN CHEWABLE 81 MG TABLET. PO ONE (01:00)
[2019-12-24] MEDS: dilTIAZem IV PUSH 25 MG/5 ML VIAL IVP ONE ×2 (01:22→01:30)
[2019-12-24] MEDS ORDERED: DILTIAZEM HCL 125 MG in IV NORMAL SALINE 100ML 100 ML IV PRN (01:30)
--- NOTE | 2019-12-24 02:15 | NUR ---
ADMISSION Pt arrival to room 262 at this time by ER cart. Pt transferred from bed to bed by scooting his self over to unit bed with cueing. Pt skin and bony prominences inspected at this time. Skin is intact, no wounds noted at this time. Pt bilat pedal has severe swelling 3 to 4+ pitting edema. The tops of the feet bilat have scant weeping although no open skin was directly observed. I applied bilat michelle hose and also elevated bilat lower legs on pillows. Pt is alert to self and states he is in a hospital but does not know which one. 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 I was unable to gather any admission information directly from the patient due to cognitive deficits at this time, and used the [facility] paperwork to fill out his admission questions. Pt will answer simple yes and no questions with some reliability. He denies pain and shows no non verbal signs of pain at this time. He is in sinus rhythm with frequent PVCs at time of admission, so the cardizem gtt ordered for his afib RVR that occurred briefly in the ER was not administered. He does have a history of afib. ONly belongings with the patient are a button up shirt and bathrobe. Pt resting comfortably in bed, continuous pulse ox is in use and bed alarm set. Call light and items in reach.
[2019-12-24 02:23] VITALS: BP 162/86
[2019-12-24] MEDS ORDERED: MIRT15TA90 PO (04:14)
[2019-12-24] MEDS ORDERED: ACET325T21 PO (04:14)
[2019-12-24] MEDS ORDERED: SENN1TAB99 PO (04:14)
[2019-12-24] MEDS ORDERED: CIPR500T94 PO (04:14)
[2019-12-24] MEDS ORDERED: ONDA4TAB12 PO (04:14)
--- NOTE | 2019-12-24 06:46 | PDOC ---
Infectious Disease Note Vital Sign Vital Signs Vital Signs Date Time Temp Pulse Resp B/P (MAP) Pulse Ox O2 Delivery O2 Flow Rate FiO2 12/24/19 02:30 Nasal Cannula 4.0 12/24/19 02:23 97.4 91 24 162/86 (111) 98 97.4 Labs Lab Laboratory Tests Test 12/23/19 22:52 12/23/19 23:25 White Blood Count 9.7 x10^3/uL (4.0-11.0) Red Blood Count 4.16 x10^6/uL (4.30-5.70) Hemoglobin 13.1 g/dL (13.0-17.5) Hematocrit 40.0 % (39.0-53.0) Mean Corpuscular Volume 96 fL (79-100) Mean Corpuscular Hemoglobin 32 pg (25-35) Mean Corpuscular Hemoglobin Concent 33 g/dL (31-37) Red Cell Distribution Width 16.7 % (11.5-14.5) Platelet Count 226 x10^3/uL (140-400) Neutrophils (%) (Auto) 79 % (31-73) Lymphocytes (%) (Auto) 11 % (24-48) Monocytes (%) (Auto) 8 % (0-9) Eosinophils (%) (Auto) 1 % (0-3) Basophils (%) (Auto) 1 % (0-3) Neutrophils # (Auto) 7.6 x10^3/uL (1.8-7.7) Lymphocytes # (Auto) 1.0 x10^3/uL (1.0-4.8) Monocytes # (Auto) 0.8 x10^3/uL (0.0-1.1) Eosinophils # (Auto) 0.1 x10^3/uL (0.0-0.7) Basophils # (Auto) 0.1 x10^3/uL (0.0-0.2) Prothrombin Time 13.5 SEC (11.7-14.0) Prothromb Time International Ratio 1.1 (0.8-1.1) Activated Partial Thromboplast Time 28 SEC (24-38) Lactic Acid Level 1.0 mmol/L (0.4-2.0) Sodium Level 144 mmol/L (136-145) Potassium Level 4.5 mmol/L (3.5-5.1) Chloride Level 109 mmol/L (98-107) Carbon Dioxide Level 32 mmol/L (21-32) Anion Gap 3 (6-14) Blood Urea Nitrogen 20 mg/dL (8-26) Creatinine 0.9 mg/dL (0.7-1.3) Estimated GFR (Cockcroft-Gault) 80.2 BUN/Creatinine Ratio 22 (6-20) Glucose Level 154 mg/dL (70-99) Calcium Level 8.9 mg/dL (8.5-10.1) Total Bilirubin 0.4 mg/dL (0.2-1.0) Aspartate Amino Transf (AST/SGOT) 19 U/L (15-37) Alanine Aminotransferase (ALT/SGPT) 34 U/L (16-63) Alkaline Phosphatase 112 U/L (46-116) Troponin I Quantitative 0.101 ng/mL (0.000-0.055) VP-Nnz-L-Type Natriuretic Peptide > 48680 pg/mL (0-449) Total Protein 6.1 g/dL (6.4-8.2) Albumin 2.8 g/dL (3.4-5.0) Albumin/Globulin Ratio 0.8 (1.0-1.7) Lipase 39 U/L (73-393) Objective Assessment CHF - BNP >35,000 R pleural effusion Dementia H/o Bradycardia Had been on Cipro starting 12/18 Plan Plan of Care Does not seem to have an active infection. Hold further abx and monitor May need Pleural effusion evaluated for thoracentesis if cannot diuresis Thank you # [id number] JORGE ALBERTO TRIVEDI MD Dec 24, 2019 06:46
[2019-12-24 07:00] VITALS: BP 128/71
--- NOTE | 2019-12-24 07:40 | CONS ---
DATE OF CONSULTATION: 12/24/2019 INFECTIOUS DISEASE CONSULTATION LOCATION: The patient's room 262. REQUESTING PHYSICIAN: Dr. Head. REASON FOR CONSULTATION: Questionable pneumonia. HISTORY OF PRESENT ILLNESS: The patient is an 84-year-old correction resident with a history of dementia, congestive heart failure, who according to the [facility] records has been on Cipro for unclear reasons since the 12/19/2019. He was brought to [facility] with complaints of shortness of air and reported battling pneumonia at the correction, he was on 4 L of oxygen. He was satting 98-99% on 4 liters here. He reportedly had COVID 3 months ago. On arrival, his white count was 9.7 and he had 99% neutrophils, but he has been afebrile. His BNP was greater than 35,000. His chest x-ray showed pulmonary vascular congestion and moderate right-sided pleural effusion. He was given a dose of Zosyn and levofloxacin and admitted to the hospital. Currently, the patient is lying comfortably in bed. He denies fevers or chills or sweats. He denies any cough or shortness of air. He has no headaches. No nausea, vomiting, diarrhea, constipation. No dysuria, frequency or urgency. Denies any pain in his legs. PAST MEDICAL HISTORY: Positive for coronary artery disease, ischemic cardiomyopathy, history of EF of 25-30% in 2018, chronic systolic congestive heart failure, hyperlipidemia, osteoarthritis, ischemic cardiomyopathy, peripheral arterial disease, severe Alzheimer's disease, history of bradycardia. PAST SURGICAL HISTORY: History of atherectomy, angioplasty of the left superficial femoral artery and the right superficial femoral artery, right tibial artery, left anterior descending angioplasty stent, cataract extraction. REVIEW OF SYSTEMS: Otherwise negative such mentioned above. ALLERGIES: No known drug allergies. SOCIAL HISTORY: He is a correction resident. No tobacco. He does have a history of smoking. FAMILY HISTORY: Noncontributory. CURRENT MEDICATIONS: Include Cardizem and he did receive levofloxacin x 1, Zosyn x 1, aspirin, Lasix. He was taking Cipro at this facility as well as sertraline, finasteride, mirtazapine, Senokot, memantine, atorvastatin. PHYSICAL EXAMINATION: VITAL SIGNS: He is afebrile, temperature 97.4, pulse 91, respirations 24, blood pressure 162/86, satting 98% on 4 liters. CONSTITUTIONAL: He is lying in bed. He is cooperative. He is in no acute distress. He responds to questions. He has normal conjunctivae. Oral cavity, oropharynx is clear, somewhat dry. NECK: Without fullness. Good range of motion. HEART: With S1, S2. LUNGS: Decreased in the bases, no wheeze. ABDOMEN: Soft, nontender, no guarding or rebound. EXTREMITIES: Without clubbing, cyanosis. He has MACARIO hose in place with trace edema. SKIN: Warm to touch without signs of rash. NEUROLOGIC: Nonfocal, answers questions, but moves all extremities. PSYCHIATRIC: Affect is appropriate. LABORATORY VALUES: White count 9.7, hemoglobin 13.1, platelets of 226, segs are 79, lymphs are 11, creatinine 0.9. Normal liver function study tests. Troponins elevated at 0.101. BNP of greater than 35,000. Lipase was 39. RADIOLOGY: Reviewed in history of present illness. IMPRESSION: 1. Congestive heart failure with BNP greater than 35,000. 2. Right pleural effusion. 3. Dementia. 4. History of bradycardia. 5. He had been on Cipro starting 12/19/2019. RECOMMENDATIONS: Currently, he does not seem to be consistent with active infection. We will hold further antibiotics and monitor. May need pleural effusion. Evaluate for thoracentesis if cannot diurese. Thank you for allowing me to see and participate in the patient's care. Should you have any further questions, please do not hesitate to contact me. JORGE ALBERTO TRIVEDI MD DR: TRISTAN/cielo JOB#: [id number] / [id number] SHAMIR
[2019-12-24] MEDS ORDERED: INFLUENZA VAX SCREEN BY RX. MC ONE (09:00)
[2019-12-24 10:52] VITALS: BP 127/74
[2019-12-24] MEDS ORDERED: FUROSEMIDE 40 MG/4 ML VIAL. IVP ONE (11:30)
[2019-12-24] MEDS ORDERED: ACETAMINOPHEN 325 MG TABLET. PO PRN (13:15)
[2019-12-24] MEDS ORDERED: NITROGLYCERIN SUBLINGUAL 0.4 MG BOTTLE OF 25. SL PRN (13:15)
[2019-12-24] MEDS ORDERED: MAGNESIUM HYDROXIDE 2,400 MG/30 ML ORAL.SUSP. PO PRN (13:15)
--- NOTE | 2019-12-24 13:34 | PDOC ---
Provider Note Date of Service: DATE: 12/24/19 TIME: 13:33 Provider Note history and physical dictated # [id number] Justifications for Admission Other Justification YAQUELIN LUJAN MD Dec 24, 2019 13:34
--- NOTE | 2019-12-24 13:55 | HP ---
ADMIT DATE: 12/24/2019 LOCATION: Room 262. HISTORY OF PRESENT ILLNESS: The patient is an 84-year-old white male, resident of a [facility]pc, cared for by another physician, who has a history of ischemic cardiomyopathy with left ventricular ejection fraction of 30-35% on echocardiogram done in 2019, who has coronary artery disease, peripheral arterial disease, chronic systolic congestive heart failure, Alzheimer disease and hyperlipidemia. Apparently had a recent COVID-19 infection about 3 months ago and was admitted to [facility] at the Emergency Room on 12/24/2019 with an onset of shortness of breath. He is a poor historian. He is a do not resuscitate. He was given IV Lasix. He feels better. He is sitting up, eating lunch. He is on oxygen per nasal cannula, recently decreased from 4-3 liters this morning. In the Emergency Room, his chest x-ray shows a pulmonary vascular congestion and a moderate right-sided pleural effusion. He did receive a dose of IV Zosyn and Levaquin. Also received IV Lasix. His BNP was greater than 35,000. He was, therefore, admitted for acute on chronic systolic congestive heart failure with acute hypoxic respiratory failure. ALLERGIES AND INTOLERANCES: ARICEPT, WHICH CAUSED BRADYCARDIA. MEDICATIONS: Prior to admission; he is on sertraline 100 mg every day, Cipro 500 mg b.i.d. for unclear reasons, Ventolin inhaler two puffs q.i.d. for 10 days, tamsulosin 0.4 mg every day, finasteride 5 mg every day, mirtazapine 7.5 mg at bedtime, Senokot one tablet every day, Namenda extended release 28 mg every day, potassium chloride 10 mEq every day, multiple vitamin once a day, atorvastatin 40 mg at bedtime, nitroglycerin 0.4 mg sublingual p.r.n. At the last hospital stay, for some reason, he is not on his aspirin 81 mg every day, Plavix 75 mg every day, spironolactone 25 mg every day, Lasix 40 mg every day and losartan 25 mg every day. PAST MEDICAL HISTORY: Significant for hospitalization at [facility] in 06/2019 with a left-sided pneumothorax secondary to mechanical fall, which resolved on its own without any intervention. He has got an ischemic cardiomyopathy with left ventricular ejection fraction of 30-35% as noted on echocardiogram in 06/2019. Chronic systolic congestive heart failure. He had sinus bradycardia, so metoprolol and Aricept has been discontinued in the past. Coronary artery disease, peripheral arterial disease, hyperlipidemia, Alzheimer disease, premature ventricular contractions. He has a history of an atherectomy and angioplasty to the left superficial femoral artery in 07/2016 and also had similar procedures of right femoral artery and right tibial artery in 2017. He had a left anterior descending artery angioplasty and stent placed in 2016. Right cataract extraction, Alzheimer disease. SOCIAL HISTORY: Apparently lives in a fpc. Does not drink alcohol. He did smoke in the past. FAMILY HISTORY: Also unavailable due to his dementia. REVIEW OF SYSTEMS: Unobtainable and unreliable due to his severe dementia. PHYSICAL EXAMINATION: VITAL SIGNS: Temperature is 97.3 degrees, heart rate of 69. He has got some premature ventricular contractions, respiratory rate 26, blood pressure 127/74, oxygen saturation was 90% on 4 liters per nasal cannula. Most recently, it was better than that. HEENT: Gaze is conjugate. Neck is supple. Mouth: Tongue is midline. NECK: No cervical lymphadenopathy. HEART: Reveals an S1, S2. There is no S3 or murmur. LUNGS: Reveal decreased breath sounds bilaterally with some crackles in the left lung base. ABDOMEN: Soft in the sitting position. EXTREMITIES: Lower extremities got 2+ bipedal edema. GENERAL APPEARANCE: He has got cachexia, especially involving his legs. NEUROLOGIC: Revealed no focal weakness of extremities or facial asymmetry. LABORATORY DATA: Review of his laboratory tests: White count 9.7, hemoglobin 13.1, platelet count 226,000, 79 polys and 11 lymphocytes. INR 1.1 with a PTT of 28. Sodium 144, potassium 4.5, chloride 109, total CO2 of 32 with a BUN of 20, creatinine 0.9, blood sugar 154. Liver function tests were normal. Troponin level is 0.01. ProBNP was greater than 35,000. Albumin was 2.8, lipase was 39. He had a chest x-ray done, which was consistent with pulmonary vascular congestion, moderate size right pleural effusion like he has some right basilar atelectasis. I could not find this electrocardiogram on the chart. It was ordered. ASSESSMENT: 1. Acute on chronic systolic congestive heart failure. 2. Ischemic cardiomyopathy. 3. Coronary artery disease with previous coronary angioplasty and stent. 4. Peripheral arterial disease. 5. Alzheimer's disease. 6. Right pleural effusion. 7. Acute hypoxic respiratory failure. 8. Severe protein-calorie malnutrition. 9. Hyperlipidemia. PLAN: Consults; Dr. Ivey has already seen the patient. Also, the patient was already consulted by the Infectious Disease, Dr. Aguayo, who stopped the antibiotics, thinking that the patient did not have any evidence of pneumonia. The patient will receive an another dose of IV Lasix today and put him on Lasix 40 mg IV daily. We will resume his aspirin and Plavix. Spironolactone and losartan were stopped at the [facility] that he was on previously earlier this year. We will also order SCDs for deep vein thrombosis prophylaxis. Consult Dr. Arriaga regarding the right pleural effusion to see if he needs to have a therapeutic thoracentesis. Continue with his oxygen. Again, we will check a lipid profile, basic metabolic profile and magnesium level tomorrow. He is a do not resuscitate. YAQUELIN LUJAN MD DR: GLENDA/cielo JOB#: [id number] / [id number]
[2019-12-24] MEDS: ASPIRIN 325 MG TABLET PO SCH (14:02)
[2019-12-24] MEDS: CLOPIDOGREL BISULFATE 75 MG TABLET PO SCH (14:02)
--- NOTE | 2019-12-24 14:51 | PDOC2 ---
CONSULT Date of Consult Date of Consult DATE: 12/24/19 TIME: 14:44 Reason for Consult Reason for Consult: Congestive heart failure Referring Physician Referring Physician: Dr. Head Identification/Chief Complaint Chief Complaint Shortness of breath Source Source: Caregiver, Chart review, Patient History of Present Illness Reason for Visit: The patient is an 84-year-old male who was admitted from the emergency room for episodes of increasing shortness of breath and mildly decreased mental status changes. He has a history of an ischemic cardiomyopathy with his last echocardiogram on 07/01/2019 showing ejection fraction of 30 to 35% with global hypokinesis and mild to moderate aortic insufficiency. A heart catheterization on 02/22/2016 showed significant LAD disease which was stented. Previously sten ts placed in the right coronary artery were widely patent. Ejection fraction was 35%. Chest x-ray on admission shows heart failure as well as a moderate right-sided pleural effusion. Troponin levels were 0.101. BNP is significant elevated 35,000. EKG shows an atrial fibrillation which initially required treatment with IV Cardizem it which is now in the rate control. No acute ischemic changes are noted. In addition the patient was reportedly positive for COVID approximately 3 months ago. This morning after diuresis is much more comfortable. He denies chest pain. Reports mild shortness of breath. He has baseline dementia. Past Medical History Cardiovascular: CAD, CHF, HTN, Hyperlipidemia, Valve insufficiency, Other Pulmonary: COPD CENTRAL NERVOUS SYSTEM: Dementia GI: No pertinent hx Heme/Onc: No pertinent hx Hepatobiliary: No pertinent hx Psych: No pertinent hx Musculoskeletal: Osteoarthritis Rheumatologic: No pertinent hx Infectious disease: No pertinent hx Renal/: Benign prostatic enlarg. Endocrine: No pertinent hx Past Surgical History Past Surgical History: Tonsillectomy, Other (Coronary stents to the LAD and right coronary artery.) Family History Family History: Heart Disease, Hypertension Social History <1 pack per day ALCOHOL: none Drugs: None Lives: Detention Current Problem List Problem List Problems Medical Problems: (1) Atrial fibrillation with rapid ventricular response Status: Acute (2) CHF (congestive heart failure) Status: Acute (3) Pleural effusion, right Status: Acute Current Medications Current Medications Current Medications Piperacillin Sod/ Tazobactam Sod 3.375 gm/Sodium Chloride 50 ml @ 100 mls/hr 1X ONCE IV Last administered on 12/23/19at 23:25; Start 12/23/19 at 23:30; Stop 12/23/19 at 23:59; Status DC Levofloxacin/ Dextrose 150 ml @ 100 mls/hr 1X ONCE IV Last administered on 12/24/19at 00:12; Start 12/23/19 at 23:30; Stop 12/24/19 at 00:59; Status DC Furosemide (Lasix) 40 mg 1X ONCE IVP Last administered on 12/23/19at 23:31; Start 12/23/19 at 23:30; Stop 12/23/19 at 23:31; Status DC Aspirin (Aspirin Chewable) 324 mg 1X ONCE PO Last administered on 12/24/19at 01:22; Start 12/24/19 at 01:00; Stop 12/24/19 at 01:01; Status DC Ondansetron HCl (Zofran) 4 mg PRN Q8HRS PRN IV NAUSEA/VOMITING 1ST CHOICE; Start 12/24/19 at 00:45; Stop 12/25/19 at 00:44 Diltiazem HCl (Cardizem Iv Push) 10 mg 1X ONCE IVP ; Start 12/24/19 at 01:30; Stop 12/24/19 at 01:31; Status DC Diltiazem HCl 125 mg/Sodium Chloride 125 ml @ 5 mls/hr CONT PRN IV SEE I/O RECORD; Start 12/24/19 at 01:30 Info (FLU VACCINE SCREEN per RX) 1 each 1X ONCE MC ; Start 12/24/19 at 09:00; Stop 12/24/19 at 09:01; Status UNV Furosemide (Lasix) 40 mg 1X ONCE IVP Last administered on 12/24/19at 11:51; Start 12/24/19 at 11:30; Stop 12/24/19 at 11:31; Status DC Furosemide (Lasix) 40 mg DAILY IVP ; Start 12/25/19 at 09:00 Aspirin (Silke Aspirin) 81 mg DAILYWBKFT PO Last administered on 12/24/19at 14:02; Start 12/24/19 at 14:00 Clopidogrel Bisulfate (Plavix) 75 mg DAILYWBKFT PO Last administered on 12/24/19at 14:02; Start 12/24/19 at 14:00 Spironolactone (Aldactone) 25 mg DAILY PO ; Start 12/25/19 at 09:00 Losartan Potassium (Cozaar) 25 mg DAILY PO ; Start 12/25/19 at 09:00 Sertraline HCl (Zoloft) 100 mg DAILY PO ; Start 12/25/19 at 09:00 Tamsulosin HCl (Flomax) 0.4 mg QHS PO ; Start 12/24/19 at 21:00 Finasteride (Proscar) 5 mg DAILY PO ; Start 12/25/19 at 09:00 Mirtazapine (Remeron) 7.5 mg QHS PO ; Start 12/24/19 at 21:00 Acetaminophen (Tylenol) 650 mg PRN Q6HRS PRN PO RECTAL PAIN; Start 12/24/19 at 13:15 Senna/Docusate Sodium (Senna Plus) 1 tab DAILY PO ; Start 12/25/19 at 09:00 Memantine (Namenda) 10 mg BID PO ; Start 12/24/19 at 21:00 Multivitamins (Thera M Plus) 1 tab DAILY PO ; Start 12/25/19 at 09:00 Atorvastatin Calcium (Lipitor) 40 mg QHS PO ; Start 12/24/19 at 21:00 Nitroglycerin (Nitrostat) 0.4 mg PRN Q5MIN PRN SL CHEST PAIN; Start 12/24/19 at 13:15 Magnesium Hydroxide (Milk Of Magnesia) 2,400 mg PRN DAILY PRN PO CONSTIPATION; Start 12/24/19 at 13:15 Active Scripts Active Flomax (Tamsulosin Hcl) 0.4 Mg Cap.er.24h 0.4 Mg PO QHS Nitrostat (Nitroglycerin) 0.4 Mg Tab.subl 0.4 Mg SL PRN Q5MIN PRN Reported Acetaminophen 325 Mg Tablet 2 Tab PO PRN Q6HRS PRN 30 Days Senna-Docusate Sodium Tablet (Sennosides/Docusate Sodium) 1 Each Tablet 1 Tab PO DAILY 20 Days Ondansetron Odt (Ondansetron) 4 Mg Tab.rapdis 1 Tab PO PRN Q6-8HRS Mirtazapine 15 Mg Tab.rapdis 1 Tab PO QHS 30 Days Cipro (Ciprofloxacin Hcl) 500 Mg Tablet 1 Tab PO BID 2 Days Zoloft (Sertraline Hcl) 50 Mg Tablet 100 Mg PO DAILY Polyethylene Glycol 3350 2,500 Gm Powder 17 Gm PO DAILY PRN Finasteride 5 Mg Tablet 1 Tab PO DAILY Atorvastatin Calcium 40 Mg Tablet 1 Tab PO DAILY Albuterol Sulfate Conc Neb Soln (Albuterol Sulfate) 2.5 Mg/0.5 Ml Vial.neb 1 Vial NEB Q6HRS PRN Acetaminophen 325 Mg Tablet 2 Tab PO PRN Q6HRS PRN 30 Days Potassium Chloride (Potassium Chloride) 10 Meq Capsule.er 10 Meq PO DAILY Namenda Xr (Memantine Hcl) 28 Mg Cap.spr.24 28 Mg PO DAILY Daily Vitamin (Multivitamin) 1 Each Tablet 1 Each PO DAILY Allergies Allergies: Coded Allergies: donepezil (Verified Allergy, Intermediate, BRADYCARDIA, 12/24/19) Bradycardia ROS Respiratory: YES: Shortness of breath, SOB with excertion Neurological: Yes Confusion Physical Exam General: mild distress HEENT: Atraumatic Lungs: Other (Decreased breath sounds) Heart: Other (Irregularly irregular) Abdomen: Normal bowel sounds Vitals VITALS Vital Signs Date Time Temp Pulse Resp B/P (MAP) Pulse Ox O2 Delivery O2 Flow Rate FiO2 12/24/19 10:52 97.3 69 26 127/74 (91) 90 Nasal Cannula 4.0 97.3 Labs Labs Laboratory Tests Test 12/23/19 22:52 12/23/19 23:25 White Blood Count 9.7 x10^3/uL (4.0-11.0) Red Blood Count 4.16 x10^6/uL (4.30-5.70) Hemoglobin 13.1 g/dL (13.0-17.5) Hematocrit 40.0 % (39.0-53.0) Mean Corpuscular Volume 96 fL (79-100) Mean Corpuscular Hemoglobin 32 pg (25-35) Mean Corpuscular Hemoglobin Concent 33 g/dL (31-37) Red Cell Distribution Width 16.7 % (11.5-14.5) Platelet Count 226 x10^3/uL (140-400) Neutrophils (%) (Auto) 79 % (31-73) Lymphocytes (%) (Auto) 11 % (24-48) Monocytes (%) (Auto) 8 % (0-9) Eosinophils (%) (Auto) 1 % (0-3) Basophils (%) (Auto) 1 % (0-3) Neutrophils # (Auto) 7.6 x10^3/uL (1.8-7.7) Lymphocytes # (Auto) 1.0 x10^3/uL (1.0-4.8) Monocytes # (Auto) 0.8 x10^3/uL (0.0-1.1) Eosinophils # (Auto) 0.1 x10^3/uL (0.0-0.7) Basophils # (Auto) 0.1 x10^3/uL (0.0-0.2) Prothrombin Time 13.5 SEC (11.7-14.0) Prothromb Time International Ratio 1.1 (0.8-1.1) Activated Partial Thromboplast Time 28 SEC (24-38) Lactic Acid Level 1.0 mmol/L (0.4-2.0) Sodium Level 144 mmol/L (136-145) Potassium Level 4.5 mmol/L (3.5-5.1) Chloride Level 109 mmol/L (98-107) Carbon Dioxide Level 32 mmol/L (21-32) Anion Gap 3 (6-14) Blood Urea Nitrogen 20 mg/dL (8-26) Creatinine 0.9 mg/dL (0.7-1.3) Estimated GFR (Cockcroft-Gault) 80.2 BUN/Creatinine Ratio 22 (6-20) Glucose Level 154 mg/dL (70-99) Calcium Level 8.9 mg/dL (8.5-10.1) Total Bilirubin 0.4 mg/dL (0.2-1.0) Aspartate Amino Transf (AST/SGOT) 19 U/L (15-37) Alanine Aminotransferase (ALT/SGPT) 34 U/L (16-63) Alkaline Phosphatase 112 U/L (46-116) Troponin I Quantitative 0.101 ng/mL (0.000-0.055) UL-Pae-I-Type Natriuretic Peptide > 02501 pg/mL (0-449) Total Protein 6.1 g/dL (6.4-8.2) Albumin 2.8 g/dL (3.4-5.0) Albumin/Globulin Ratio 0.8 (1.0-1.7) Lipase 39 U/L (73-393) Laboratory Tests Test 12/23/19 22:52 12/23/19 23:25 White Blood Count 9.7 x10^3/uL (4.0-11.0) Red Blood Count 4.16 x10^6/uL (4.30-5.70) Hemoglobin 13.1 g/dL (13.0-17.5) Hematocrit 40.0 % (39.0-53.0) Mean Corpuscular Volume 96 fL (79-100) Mean Corpuscular Hemoglobin 32 pg (25-35) Mean Corpuscular Hemoglobin Concent 33 g/dL (31-37) Red Cell Distribution Width 16.7 % (11.5-14.5) Platelet Count 226 x10^3/uL (140-400) Neutrophils (%) (Auto) 79 % (31-73) Lymphocytes (%) (Auto) 11 % (24-48) Monocytes (%) (Auto) 8 % (0-9) Eosinophils (%) (Auto) 1 % (0-3) Basophils (%) (Auto) 1 % (0-3) Neutrophils # (Auto) 7.6 x10^3/uL (1.8-7.7) Lymphocytes # (Auto) 1.0 x10^3/uL (1.0-4.8) Monocytes # (Auto) 0.8 x10^3/uL (0.0-1.1) Eosinophils # (Auto) 0.1 x10^3/uL (0.0-0.7) Basophils # (Auto) 0.1 x10^3/uL (0.0-0.2) Prothrombin Time 13.5 SEC (11.7-14.0) Prothromb Time International Ratio 1.1 (0.8-1.1) Activated Partial Thromboplast Time 28 SEC (24-38) Lactic Acid Level 1.0 mmol/L (0.4-2.0) Sodium Level 144 mmol/L (136-145) Potassium Level 4.5 mmol/L (3.5-5.1) Chloride Level 109 mmol/L (98-107) Carbon Dioxide Level 32 mmol/L (21-32) Anion Gap 3 (6-14) Blood Urea Nitrogen 20 mg/dL (8-26) Creatinine 0.9 mg/dL (0.7-1.3) Estimated GFR (Cockcroft-Gault) 80.2 BUN/Creatinine Ratio 22 (6-20) Glucose Level 154 mg/dL (70-99) Calcium Level 8.9 mg/dL (8.5-10.1) Total Bilirubin 0.4 mg/dL (0.2-1.0) Aspartate Amino Transf (AST/SGOT) 19 U/L (15-37) Alanine Aminotransferase (ALT/SGPT) 34 U/L (16-63) Alkaline Phosphatase 112 U/L (46-116) Troponin I Quantitative 0.101 ng/mL (0.000-0.055) HO-Jyo-U-Type Natriuretic Peptide > 12872 pg/mL (0-449) Total Protein 6.1 g/dL (6.4-8.2) Albumin 2.8 g/dL (3.4-5.0) Albumin/Globulin Ratio 0.8 (1.0-1.7) Lipase 39 U/L (73-393) Images Images Chest x-ray with vascular congestion and a moderate right-sided pleural effusion Assessment/Plan Assessment/Plan 1. Acute on chronic systolic heart failure. Ejection fraction on echocardiogram earlier this year was 30 to 35%. Patient has improved post diuresis. We will continue diuresis and monitoring lab. Will trend troponins which have been minimally elevated 0.1. 2. Coronary artery disease. Catheterization in 2016 showed patent right coronary stents and a new lead placed stent to the LAD. No typical chest pain. No significant elevation in troponin at this time. Continuing medical treatment. 3. Atrial fibrillation. Initially treated with IV Cardizem. We will continue Cardizem at this time and convert to oral medications tomorrow. 4. Hypertension. Under better control. Continue present treatment. 5. History of peripheral vascular disease. No reports of leg pain. Continuing present treatment. 6. Hyperlipidemia. Will check lab. 7. Right-sided pleural effusion. Has also been recently treated for probable pneumonia. Patient will be seen by ID and pulmonary. 8. Dementia. Patient improved overnight from his initial presentation in the ER. Thank you for allowing us to participate in the care of your patient. RODRIGUEZ MOE MD Dec 24, 2019 14:51
[2019-12-24 15:05] VITALS: BP 145/70
[2019-12-24 19:45] VITALS: BP 184/88
[2019-12-24] MEDS: MEMANTINE 10 MG TABLET. PO SCH (21:19)
[2019-12-24] MEDS: TAMSULOSIN 0.4 MG CAP.ER.24H. PO SCH (21:19)
[2019-12-24] MEDS: ATORVASTATIN CALCIUM 40 MG TABLET. PO SCH (21:19)
[2019-12-24] MEDS: MIRTAZAPINE 7.5 MG TABLET. PO SCH (21:19)
[2019-12-24 23:40] VITALS: BP 133/84
[2019-12-25 03:00] VITALS: BP 120/61
[2019-12-25 07:00] VITALS: BP 155/63
--- NOTE | 2019-12-25 07:25 | PDOC ---
Infectious Disease Note Subjective Subjective Denies F/C/s/N/V/D/ a little SOA at times. no gross cough Not hungry now Vital Sign Vital Signs Vital Signs Date Time Temp Pulse Resp B/P (MAP) Pulse Ox O2 Delivery O2 Flow Rate FiO2 12/25/19 03:00 97.4 56 18 120/61 (80) 91 Nasal Cannula 2.5 97.4 Physical Exam PHYSICAL EXAM CONSTITUTIONAL: He is lying in bed. He is cooperative. He is in no acute distress. He responds to questions. Looks a little more tired today HEENT: He has normal conjunctivae. Oral cavity, oropharynx is clear, somewhat dry. NECK: Without fullness. Good range of motion. HEART: With S1, S2. LUNGS: Decreased in the bases, no wheeze. ABDOMEN: Soft, nontender, no guarding or rebound. EXTREMITIES: Without clubbing, cyanosis. He has MACARIO hose in place with trace edema. SKIN: Warm to touch without signs of rash. NEUROLOGIC: Nonfocal, answers questions, but moves all extremities. PSYCHIATRIC: Affect is appropriate Labs Micro Microbiology 12/23/19 Blood Culture - Preliminary, Resulted NO GROWTH AFTER 1 DAY Objective Assessment CHF - BNP >35,000 R pleural effusion Dementia H/o Bradycardia Had been on Cipro starting 12/18 Plan Plan of Care Does not seem to have an active infection. Hold further abx and monitor May need Pleural effusion evaluated for thoracentesis if cannot diuresis JORGE ALBERTO TRIVEDI MD Dec 25, 2019 07:25
[2019-12-25 07:29] LABS: CALCIUM 8.8 mg/dL (8.5-10.1); CHOLESTEROL/HDL RATIO 2.5; MAGNESIUM 2.1 mg/dL (1.8-2.4)
[2019-12-25] MEDS: IPRATRPIUM/ALBUTEROL 0.5/2.5MG 3 ML NEBU. NEB SCH ×4 (08:00→21:07)
--- NOTE | 2019-12-25 08:02 | CONS ---
DATE OF CONSULTATION: 12/25/2019 REASON FOR CONSULTATION: I was asked to see this 84-year-old gentleman for [id number] respiratory failure, pleural effusion. HISTORY OF PRESENT ILLNESS: The patient has advanced Alzheimer's and he is not able to give me any information. He answers all my questions, but most of the information was obtained from chart. He is a assisted resident and was brought to the Emergency Room for shortness of breath and altered mental status. He does have history of ischemic cardiomyopathy with ejection fraction 30-35%, [id number] aortic insufficiency. He has coronary artery disease, status post stent. His BNP is elevated more than 35,000. Apparently, he is on oxygen at assisted. He is currently on 2 liters of oxygen. He appears comfortable. When I asked him if he has shortness of breath, he said he does not know. He says he did smoke previously. Per ER note, the patient had COVID-19, 90 days ago. He was found to be in AFib and was started on Cardizem drip, now in sinus rhythm. PAST MEDICAL HISTORY: Coronary artery disease, ischemic cardiomyopathy, systolic CHF, dementia, hypertension, peripheral vascular disease, arthritis, stent placement. ALLERGIES: DONEPEZIL. MEDICATIONS: Currently, he is on Lasix 40 mg IV daily, multivitamin, Zoloft, Cozaar, Aldactone, Lipitor, Namenda, Remeron, Flomax, Plavix, aspirin, Cardizem. SOCIAL HISTORY: Positive for smoking, details are not known. Lives in a assisted. FAMILY HISTORY: Unable to obtain due to his dementia. REVIEW OF SYSTEMS: Unable to obtain due to his severe dementia. PHYSICAL EXAMINATION: GENERAL: This is an elderly gentleman. VITAL SIGNS: His O2 saturation on 2.5 liters of oxygen is 94%, respiratory rate 16, heart rate 56, blood pressure 133/84, and temperature 97.4. HEENT: Normocephalic, atraumatic. Pupils are equal, round, and reactive to light. Nose is clear. NECK: Positive JVD. No lymphadenopathy or thyromegaly. CARDIOVASCULAR: Regular rate and rhythm. PMI is not displaced. CHEST: Inspection is normal. LUNGS: There are bibasilar crackles, dullness at the right base. ABDOMEN: Soft. Bowel sounds are good. There is no mass. EXTREMITIES: There is no edema. LYMPHATICS: There is no lymphadenopathy. NEUROLOGIC: Alert. SKIN: Chronic changes. LABORATORY DATA: I reviewed the following lab data; chest x-ray showed right infiltrate/effusion/atelectasis. WBC 9.7, hemoglobin 13.1, and platelets 226. Sodium 144, potassium 4.5, chloride 109, CO2 of 32, BUN 20, creatinine 0.9. BNP more than 35,000. Troponin 0.0101. Lactic acid 1. IMPRESSION: 1, Acute on chronic respiratory failure secondary to acute systolic congestive heart failure, right pleural effusion, atelectasis. 2. Abnormal chest x-ray, effusion/infiltrate/atelectasis. 3. Ischemic cardiomyopathy. 4. Acute systolic congestive heart failure. 5. Chronic obstructive pulmonary disease. 6. Alzheimer's. 7. Paroxysmal atrial fibrillation, now in sinus rhythm. PLAN AND RECOMMENDATIONS: 1. Titrate FiO2 to keep O2 saturation 92%. 2. Start bronchodilator. 3. I agree with Lasix IV. May need higher dose per Cardiology. 4. I reviewed the chest x-ray. There is effusion/atelectasis/infiltrate. I will do a CT of the chest to evaluate the size of pleural effusion. He may require thoracentesis. Of note, he is on Plavix. 5. ID is consulted. Thank you very much for allowing me to participate in care of this very nice gentleman. NICOLASA PALACIOS M.D. DR: WESLEY/cielo JOB#: [id number] / [id number] SHAMIR
[2019-12-25] MEDS: SERTRALINE 50 MG TABLET. PO SCH (08:28)
[2019-12-25] MEDS: SENNOSIDES/DOCUSATE 8.6/50MG TABLET. PO SCH (08:29)
[2019-12-25] MEDS: MEMANTINE 10 MG TABLET. PO SCH ×2 (08:29→20:00)
[2019-12-25] MEDS: ASPIRIN 325 MG TABLET PO SCH (08:29)
[2019-12-25] MEDS: MULTIVITAMIN with MINERAL TABLET. PO SCH (08:29)
[2019-12-25] MEDS: SPIRONOLACTONE 25 MG TABLET PO SCH (08:29)
[2019-12-25] MEDS: FINASTERIDE 5 MG TABLET. PO SCH (08:29)
[2019-12-25] MEDS: LOSARTAN POTASSIUM 25 MG TABLET. PO SCH (08:29)
[2019-12-25] MEDS: CLOPIDOGREL BISULFATE 75 MG TABLET PO SCH (08:29)
[2019-12-25] MEDS ORDERED: FUROSEMIDE 40 MG/4 ML VIAL. IVP SCH (09:00)
--- NOTE | 2019-12-25 09:32 | RAD ---
STUDY: CT chest without contrast INDICATION: Pleural effusion. COMPARISON: None. TECHNIQUE: Helical CT imaging of the chest performed without the use of intravenous contrast. Sagittal and coronal reformats were obtained. One or more of the following individualized dose reduction techniques were utilized for this examination: 1. Automated exposure control 2. Adjustment of the mA and/or kV according to patient size 3. Use of iterative reconstruction technique. FINDINGS: Vasculature/heart: Extensive calcific atheromatous plaque scattered throughout the aorta, visualized great vessels and involving the coronary arteries. No aortic aneurysmal dilatation. Particularly dense plaque at the left subclavian artery origin but the degree of stenosis is uncertain without contrast. The heart is enlarged. Aortic annular mineralization. Main and central pulmonary artery transverse dimension of less than 3 cm. Mediastinum/jasiel: Relatively small pericardial effusion. No appreciable lymphadenopathy by size criteria. Lungs: Paraseptal more so than centrilobular emphysema. Moderate volume pleural effusion on the right with fluid extending into an azygos fissure. Small pleural effusion on the left. Right more so than left atelectasis with the majority of the right lower lobe collapsed. Scattered calcifications such as at the apices. A few areas of groundglass infiltrates on the right such as peripherally within the right middle lobe, images 41 through 45, series 2. Neck/axilla/chest wall: No axillary adenopathy. Mild gynecomastia. Bones: Osteopenia. Multifocal degenerative changes. No acute or aggressive osseous process. Upper abdomen: Generalized hypertrophy of the left adrenal gland without a dominant mass. Less pronounced hypertrophy of the right adrenal gland. Probable small calcified gallstone, image 76 series 2. IMPRESSION: 1. Moderate right and small left pleural effusions with overlying passive atelectasis with near complete collapse of the right lower lobe. These pleural effusions are seen in the setting of cardiomegaly and are favored transudative such as from congestive heart failure. Small pericardial effusion as well. 2. Emphysema. A few groundglass infiltrates are seen in the right lung. No findings of an organizing pneumonia but a mild atypical infectious process is not excluded. 3. Extensive calcific atherosclerosis to include involvement of the coronary arteries. Particularly dense calcific plaque at the left subclavian origin with the degree of associated stenosis uncertain without contrast. 4. Additional chronic observations as detailed above. 5. Electronically signed by: ARLENE REAGAN MD (12/25/2019 9:29 AM) [id number]
--- NOTE | 2019-12-25 10:24 | PDOC ---
PROGRESS NOTES Date of Service DATE: 12/25/19 TIME: 10:22 Subjective Subjective Patient seen and examined Objective Objective Vital Signs Date Time Temp Pulse Resp B/P (MAP) Pulse Ox O2 Delivery O2 Flow Rate FiO2 12/25/19 08:29 63 155/63 12/25/19 07:00 97.6 20 91 Nasal Cannula 2.0 97.6 Intake and Output 12/25/19 07:00 Intake Total 820 ml Output Total 1550 ml Balance -730 ml Intake Oral 820 ml Output Urine Total 1550 ml # Voids 1 Physical Exam Abdomen: Normal bowel sounds Heart: Regular rate General: mild distress Lungs: Other (Mildly decreased breath sounds) Assessment Assessment Problems Medical Problems: (1) Atrial fibrillation with rapid ventricular response Status: Acute (2) CHF (congestive heart failure) Status: Acute (3) Pleural effusion, right Status: Acute 1. Acute on chronic systolic heart failure. Ejection fraction on echocardiogram earlier this year was 30 to 35%. Patient has continued to i etienneove. We will continue present treatment and monitor lab. 2. Coronary artery disease. Catheterization in 2015 showed patent right coronary stents and a new lead placed stent to the LAD. No typical chest pain. No significant elevation in troponin at this time. Continuing medical treatment. 3. Atrial fibrillation. Initially treated with IV Cardizem. Convert to oral medications tomorrow. 4. Hypertension. Under better control. Continue present treatment. 5. History of peripheral vascular disease. No reports of leg pain. Continuing present treatment. 6. Hyperlipidemia. 7. Right-sided pleural effusion. Has also been recently treated for probable pneumonia. Patient will be seen by ID and pulmonary. 8. Dementia. Patient improved from his initial presentation in the ER. Comment Review of Relevant I have reviewed the following items deloris (where applicable) has been applied. Labs Laboratory Tests Test 12/23/19 22:52 12/23/19 23:25 12/25/19 06:45 White Blood Count 9.7 x10^3/uL (4.0-11.0) Red Blood Count 4.16 x10^6/uL (4.30-5.70) Hemoglobin 13.1 g/dL (13.0-17.5) Hematocrit 40.0 % (39.0-53.0) Mean Corpuscular Volume 96 fL (79-100) Mean Corpuscular Hemoglobin 32 pg (25-35) Mean Corpuscular Hemoglobin Concent 33 g/dL (31-37) Red Cell Distribution Width 16.7 % (11.5-14.5) Platelet Count 226 x10^3/uL (140-400) Neutrophils (%) (Auto) 79 % (31-73) Lymphocytes (%) (Auto) 11 % (24-48) Monocytes (%) (Auto) 8 % (0-9) Eosinophils (%) (Auto) 1 % (0-3) Basophils (%) (Auto) 1 % (0-3) Neutrophils # (Auto) 7.6 x10^3/uL (1.8-7.7) Lymphocytes # (Auto) 1.0 x10^3/uL (1.0-4.8) Monocytes # (Auto) 0.8 x10^3/uL (0.0-1.1) Eosinophils # (Auto) 0.1 x10^3/uL (0.0-0.7) Basophils # (Auto) 0.1 x10^3/uL (0.0-0.2) Prothrombin Time 13.5 SEC (11.7-14.0) Prothromb Time International Ratio 1.1 (0.8-1.1) Activated Partial Thromboplast Time 28 SEC (24-38) Lactic Acid Level 1.0 mmol/L (0.4-2.0) Sodium Level 144 mmol/L (136-145) 145 mmol/L (136-145) Potassium Level 4.5 mmol/L (3.5-5.1) 4.0 mmol/L (3.5-5.1) Chloride Level 109 mmol/L (98-107) 105 mmol/L (98-107) Carbon Dioxide Level 32 mmol/L (21-32) 38 mmol/L (21-32) Anion Gap 3 (6-14) 2 (6-14) Blood Urea Nitrogen 20 mg/dL (8-26) 20 mg/dL (8-26) Creatinine 0.9 mg/dL (0.7-1.3) 1.0 mg/dL (0.7-1.3) Estimated GFR (Cockcroft-Gault) 80.2 71.0 BUN/Creatinine Ratio 22 (6-20) Glucose Level 154 mg/dL (70-99) 82 mg/dL (70-99) Calcium Level 8.9 mg/dL (8.5-10.1) 8.8 mg/dL (8.5-10.1) Total Bilirubin 0.4 mg/dL (0.2-1.0) Aspartate Amino Transf (AST/SGOT) 19 U/L (15-37) Alanine Aminotransferase (ALT/SGPT) 34 U/L (16-63) Alkaline Phosphatase 112 U/L (46-116) Troponin I Quantitative 0.101 ng/mL (0.000-0.055) RJ-Rmi-R-Type Natriuretic Peptide > 57356 pg/mL (0-449) Total Protein 6.1 g/dL (6.4-8.2) Albumin 2.8 g/dL (3.4-5.0) Albumin/Globulin Ratio 0.8 (1.0-1.7) Lipase 39 U/L (73-393) Magnesium Level 2.1 mg/dL (1.8-2.4) Triglycerides Level 69 mg/dL (0-150) Cholesterol Level 151 mg/dL (0-200) LDL Cholesterol, Calculated 76 mg/dL (0-100) VLDL Cholesterol, Calculated 14 mg/dL (0-40) Non-HDL Cholesterol Calculated 90 mg/dL (0-129) HDL Cholesterol 61 mg/dL (40-60) Cholesterol/HDL Ratio 2.5 Laboratory Tests Test 12/25/19 06:45 Sodium Level 145 mmol/L (136-145) Potassium Level 4.0 mmol/L (3.5-5.1) Chloride Level 105 mmol/L (98-107) Carbon Dioxide Level 38 mmol/L (21-32) Anion Gap 2 (6-14) Blood Urea Nitrogen 20 mg/dL (8-26) Creatinine 1.0 mg/dL (0.7-1.3) Estimated GFR (Cockcroft-Gault) 71.0 Glucose Level 82 mg/dL (70-99) Calcium Level 8.8 mg/dL (8.5-10.1) Magnesium Level 2.1 mg/dL (1.8-2.4) Triglycerides Level 69 mg/dL (0-150) Cholesterol Level 151 mg/dL (0-200) LDL Cholesterol, Calculated 76 mg/dL (0-100) VLDL Cholesterol, Calculated 14 mg/dL (0-40) Non-HDL Cholesterol Calculated 90 mg/dL (0-129) HDL Cholesterol 61 mg/dL (40-60) Cholesterol/HDL Ratio 2.5 Microbiology 12/23/19 Blood Culture - Preliminary, Resulted NO GROWTH AFTER 1 DAY Medications Current Medications Piperacillin Sod/ Tazobactam Sod 3.375 gm/Sodium Chloride 50 ml @ 100 mls/hr 1X ONCE IV Last administered on 12/23/19at 23:25; Start 12/23/19 at 23:30; Stop 12/23/19 at 23:59; Status DC Levofloxacin/ Dextrose 150 ml @ 100 mls/hr 1X ONCE IV Last administered on 12/24/19at 00:12; Start 12/23/19 at 23:30; Stop 12/24/19 at 00:59; Status DC Furosemide (Lasix) 40 mg 1X ONCE IVP Last administered on 12/23/19at 23:31; Start 12/23/19 at 23:30; Stop 12/23/19 at 23:31; Status DC Aspirin (Aspirin Chewable) 324 mg 1X ONCE PO Last administered on 12/24/19at 01:22; Start 12/24/19 at 01:00; Stop 12/24/19 at 01:01; Status DC Ondansetron HCl (Zofran) 4 mg PRN Q8HRS PRN IV NAUSEA/VOMITING 1ST CHOICE; Start 12/24/19 at 00:45; Stop 12/25/19 at 00:44; Status DC Diltiazem HCl (Cardizem Iv Push) 10 mg 1X ONCE IVP ; Start 12/24/19 at 01:30; Stop 12/24/19 at 01:31; Status DC Diltiazem HCl 125 mg/Sodium Chloride 125 ml @ 5 mls/hr CONT PRN IV SEE I/O RECORD; Start 12/24/19 at 01:30 Info (FLU VACCINE SCREEN per RX) 1 each 1X ONCE MC ; Start 12/24/19 at 09:00; Stop 12/24/19 at 09:01; Status UNV Furosemide (Lasix) 40 mg 1X ONCE IVP Last administered on 12/24/19at 11:51; Start 12/24/19 at 11:30; Stop 12/24/19 at 11:31; Status DC Furosemide (Lasix) 40 mg DAILY IVP ; Start 12/25/19 at 09:00 Aspirin (Silke Aspirin) 81 mg DAILYWBKFT PO Last administered on 12/25/19 08:29; Start 12/24/19 at 14:00 Clopidogrel Bisulfate (Plavix) 75 mg DAILYWBKFT PO Last administered on 12/25/19 08:29; Start 12/24/19 at 14:00 Spironolactone (Aldactone) 25 mg DAILY PO Last administered on 12/25/19 08:29; Start 12/25/19 at 09:00 Losartan Potassium (Cozaar) 25 mg DAILY PO Last administered on 12/25/19 08:29; Start 12/25/19 at 09:00 Sertraline HCl (Zoloft) 100 mg DAILY PO Last administered on 12/25/19 08:28; Start 12/25/19 at 09:00 Tamsulosin HCl (Flomax) 0.4 mg QHS PO Last administered on 12/24/19 21:19; Start 12/24/19 at 21:00 Finasteride (Proscar) 5 mg DAILY PO Last administered on 12/25/19 08:29; Start 12/25/19 at 09:00 Mirtazapine (Remeron) 7.5 mg QHS PO Last administered on 12/24/19 21:19; Start 12/24/19 at 21:00 Acetaminophen (Tylenol) 650 mg PRN Q6HRS PRN PO RECTAL PAIN; Start 12/24/19 at 13:15 Senna/Docusate Sodium (Senna Plus) 1 tab DAILY PO Last administered on 12/25/19 08:29; Start 12/25/19 at 09:00 Memantine (Namenda) 10 mg BID PO Last administered on 12/25/19 08:29; Start 12/24/19 at 21:00 Multivitamins (Thera M Plus) 1 tab DAILY PO Last administered on 12/25/19 08:29; Start 12/25/19 at 09:00 Atorvastatin Calcium (Lipitor) 40 mg QHS PO Last administered on 12/24/19 21:19; Start 12/24/19 at 21:00 Nitroglycerin (Nitrostat) 0.4 mg PRN Q5MIN PRN SL CHEST PAIN; Start 12/24/19 at 13:15 Magnesium Hydroxide (Milk Of Magnesia) 2,400 mg PRN DAILY PRN PO CONSTIPATION; Start 12/24/19 at 13:15 Albuterol/ Ipratropium (Duoneb) 3 ml RTQID NEB ; Start 12/25/19 at 08:00 Active Scripts Active Flomax (Tamsulosin Hcl) 0.4 Mg Cap.er.24h 0.4 Mg PO QHS Nitrostat (Nitroglycerin) 0.4 Mg Tab.subl 0.4 Mg SL PRN Q5MIN PRN Reported Acetaminophen 325 Mg Tablet 2 Tab PO PRN Q6HRS PRN 30 Days Senna-Docusate Sodium Tablet (Sennosides/Docusate Sodium) 1 Each Tablet 1 Tab PO DAILY 20 Days Ondansetron Odt (Ondansetron) 4 Mg Tab.rapdis 1 Tab PO PRN Q6-8HRS Mirtazapine 15 Mg Tab.rapdis 1 Tab PO QHS 30 Days Cipro (Ciprofloxacin Hcl) 500 Mg Tablet 1 Tab PO BID 2 Days Zoloft (Sertraline Hcl) 50 Mg Tablet 100 Mg PO DAILY Polyethylene Glycol 3350 2,500 Gm Powder 17 Gm PO DAILY PRN Finasteride 5 Mg Tablet 1 Tab PO DAILY Atorvastatin Calcium 40 Mg Tablet 1 Tab PO DAILY Albuterol Sulfate Conc Neb Soln (Albuterol Sulfate) 2.5 Mg/0.5 Ml Vial.neb 1 Vial NEB Q6HRS PRN Acetaminophen 325 Mg Tablet 2 Tab PO PRN Q6HRS PRN 30 Days Potassium Chloride (Potassium Chloride) 10 Meq Capsule.er 10 Meq PO DAILY Namenda Xr (Memantine Hcl) 28 Mg Cap.spr.24 28 Mg PO DAILY Daily Vitamin (Multivitamin) 1 Each Tablet 1 Each PO DAILY Vitals/I & O Vital Sign - Last 24 Hours 12/24/19 12/24/19 12/24/19 12/24/19 10:52 15:05 19:45 20:00 Temp 97.3 97.3 97.7 97.3 97.3 97.7 Pulse 69 64 68 Resp 26 24 17 B/P (MAP) 127/74 (91) 145/70 (95) 184/88 (120) Pulse Ox 90 100 97 O2 Delivery Nasal Cannula Nasal Cannula Nasal Cannula Nasal Cannula O2 Flow Rate 4.0 3.0 2.5 2.5 12/24/19 12/25/19 12/25/19 12/25/19 23:40 03:00 07:00 08:29 Temp 96.2 97.4 97.6 96.2 97.4 97.6 Pulse 55 56 63 63 Resp 16 18 20 B/P (MAP) 133/84 (100) 120/61 (80) 155/63 (93) 155/63 Pulse Ox 94 91 91 O2 Delivery Nasal Cannula Nasal Cannula Nasal Cannula O2 Flow Rate 2.5 2.5 2.0 Intake and Output 12/24/19 12/24/19 12/25/19 15:00 23:00 07:00 Intake Total 360 ml 360 ml 100 ml Output Total 350 ml 850 ml 350 ml Balance 10 ml -490 ml -250 ml Justifications for Admission Other Justification RODRIGUEZ MOE MD Dec 25, 2019 10:24
--- NOTE | 2019-12-25 10:55 | PDOC ---
PROGRESS NOTES Date of Service DATE: 12/25/19 TIME: 10:50 Subjective Subjective confused. he is incontinent and will place stovall catheter. lab reviewed. not short of breath at rest. ct chest noted with bilateral pleural effusions with moderate right pleural effusion with collapse of RLL Objective Objective Vital Signs Date Time Temp Pulse Resp B/P (MAP) Pulse Ox O2 Delivery O2 Flow Rate FiO2 12/25/19 08:29 63 155/63 12/25/19 07:00 97.6 20 91 Nasal Cannula 2.0 97.6 Intake and Output 12/25/19 07:00 Intake Total 820 ml Output Total 1550 ml Balance -730 ml Intake Oral 820 ml Output Urine Total 1550 ml # Voids 1 Physical Exam Abdomen: Soft Heart: Normal S1, Normal S2 Extremities: Other (2 plus bipedal edema) General: Alert HEENT: Atraumatic Lungs: Other (decreased breath sounds anteriorly) Neuro: Normal speech Psych/Mental Status: Mood NL, Other (confused) Skin: No rashes Assessment Assessment Problems1. Acute on chronic systolic congestive heart failure. 2. Ischemic cardiomyopathy. 3. Coronary artery disease with previous coronary angioplasty and stent. 4. Peripheral arterial disease. 5. Alzheimer's disease. 6. Right pleural effusion. 7. Acute hypoxic respiratory failure. 8. Severe protein-calorie malnutrition. 9. Hyperlipidemia. Medical Problems: (1) Atrial fibrillation with rapid ventricular response Status: Acute (2) CHF (congestive heart failure) Status: Acute (3) Pleural effusion, right Status: Acute Plan Plan of Care place stovall to measure urine output increase iv lasix lab tomorrow continue losartan and spironolactone continue aspirin and plavix await pulmonary input regarding a right thoracentesis Comment Review of Relevant I have reviewed the following items deloris (where applicable) has been applied. Labs Laboratory Tests Test 12/23/19 22:52 12/23/19 23:25 12/25/19 06:45 White Blood Count 9.7 x10^3/uL (4.0-11.0) Red Blood Count 4.16 x10^6/uL (4.30-5.70) Hemoglobin 13.1 g/dL (13.0-17.5) Hematocrit 40.0 % (39.0-53.0) Mean Corpuscular Volume 96 fL (79-100) Mean Corpuscular Hemoglobin 32 pg (25-35) Mean Corpuscular Hemoglobin Concent 33 g/dL (31-37) Red Cell Distribution Width 16.7 % (11.5-14.5) Platelet Count 226 x10^3/uL (140-400) Neutrophils (%) (Auto) 79 % (31-73) Lymphocytes (%) (Auto) 11 % (24-48) Monocytes (%) (Auto) 8 % (0-9) Eosinophils (%) (Auto) 1 % (0-3) Basophils (%) (Auto) 1 % (0-3) Neutrophils # (Auto) 7.6 x10^3/uL (1.8-7.7) Lymphocytes # (Auto) 1.0 x10^3/uL (1.0-4.8) Monocytes # (Auto) 0.8 x10^3/uL (0.0-1.1) Eosinophils # (Auto) 0.1 x10^3/uL (0.0-0.7) Basophils # (Auto) 0.1 x10^3/uL (0.0-0.2) Prothrombin Time 13.5 SEC (11.7-14.0) Prothromb Time International Ratio 1.1 (0.8-1.1) Activated Partial Thromboplast Time 28 SEC (24-38) Lactic Acid Level 1.0 mmol/L (0.4-2.0) Sodium Level 144 mmol/L (136-145) 145 mmol/L (136-145) Potassium Level 4.5 mmol/L (3.5-5.1) 4.0 mmol/L (3.5-5.1) Chloride Level 109 mmol/L (98-107) 105 mmol/L (98-107) Carbon Dioxide Level 32 mmol/L (21-32) 38 mmol/L (21-32) Anion Gap 3 (6-14) 2 (6-14) Blood Urea Nitrogen 20 mg/dL (8-26) 20 mg/dL (8-26) Creatinine 0.9 mg/dL (0.7-1.3) 1.0 mg/dL (0.7-1.3) Estimated GFR (Cockcroft-Gault) 80.2 71.0 BUN/Creatinine Ratio 22 (6-20) Glucose Level 154 mg/dL (70-99) 82 mg/dL (70-99) Calcium Level 8.9 mg/dL (8.5-10.1) 8.8 mg/dL (8.5-10.1) Total Bilirubin 0.4 mg/dL (0.2-1.0) Aspartate Amino Transf (AST/SGOT) 19 U/L (15-37) Alanine Aminotransferase (ALT/SGPT) 34 U/L (16-63) Alkaline Phosphatase 112 U/L (46-116) Troponin I Quantitative 0.101 ng/mL (0.000-0.055) ZR-Vwx-G-Type Natriuretic Peptide > 13513 pg/mL (0-449) Total Protein 6.1 g/dL (6.4-8.2) Albumin 2.8 g/dL (3.4-5.0) Albumin/Globulin Ratio 0.8 (1.0-1.7) Lipase 39 U/L (73-393) Magnesium Level 2.1 mg/dL (1.8-2.4) Triglycerides Level 69 mg/dL (0-150) Cholesterol Level 151 mg/dL (0-200) LDL Cholesterol, Calculated 76 mg/dL (0-100) VLDL Cholesterol, Calculated 14 mg/dL (0-40) Non-HDL Cholesterol Calculated 90 mg/dL (0-129) HDL Cholesterol 61 mg/dL (40-60) Cholesterol/HDL Ratio 2.5 Laboratory Tests Test 12/25/19 06:45 Sodium Level 145 mmol/L (136-145) Potassium Level 4.0 mmol/L (3.5-5.1) Chloride Level 105 mmol/L (98-107) Carbon Dioxide Level 38 mmol/L (21-32) Anion Gap 2 (6-14) Blood Urea Nitrogen 20 mg/dL (8-26) Creatinine 1.0 mg/dL (0.7-1.3) Estimated GFR (Cockcroft-Gault) 71.0 Glucose Level 82 mg/dL (70-99) Calcium Level 8.8 mg/dL (8.5-10.1) Magnesium Level 2.1 mg/dL (1.8-2.4) Triglycerides Level 69 mg/dL (0-150) Cholesterol Level 151 mg/dL (0-200) LDL Cholesterol, Calculated 76 mg/dL (0-100) VLDL Cholesterol, Calculated 14 mg/dL (0-40) Non-HDL Cholesterol Calculated 90 mg/dL (0-129) HDL Cholesterol 61 mg/dL (40-60) Cholesterol/HDL Ratio 2.5 Microbiology 12/23/19 Blood Culture - Preliminary, Resulted NO GROWTH AFTER 1 DAY Medications Current Medications Piperacillin Sod/ Tazobactam Sod 3.375 gm/Sodium Chloride 50 ml @ 100 mls/hr 1X ONCE IV Last administered on 12/23/19at 23:25; Start 12/23/19 at 23:30; Stop 12/23/19 at 23:59; Status DC Levofloxacin/ Dextrose 150 ml @ 100 mls/hr 1X ONCE IV Last administered on 12/24/19at 00:12; Start 12/23/19 at 23:30; Stop 12/24/19 at 00:59; Status DC Furosemide (Lasix) 40 mg 1X ONCE IVP Last administered on 12/23/19at 23:31; Start 12/23/19 at 23:30; Stop 12/23/19 at 23:31; Status DC Aspirin (Aspirin Chewable) 324 mg 1X ONCE PO Last administered on 12/24/19at 01:22; Start 12/24/19 at 01:00; Stop 12/24/19 at 01:01; Status DC Ondansetron HCl (Zofran) 4 mg PRN Q8HRS PRN IV NAUSEA/VOMITING 1ST CHOICE; Start 12/24/19 at 00:45; Stop 12/25/19 at 00:44; Status DC Diltiazem HCl (Cardizem Iv Push) 10 mg 1X ONCE IVP ; Start 12/24/19 at 01:30; Stop 12/24/19 at 01:31; Status DC Diltiazem HCl 125 mg/Sodium Chloride 125 ml @ 5 mls/hr CONT PRN IV SEE I/O RECORD; Start 12/24/19 at 01:30 Info (FLU VACCINE SCREEN per RX) 1 each 1X ONCE MC ; Start 12/24/19 at 09:00; Stop 12/24/19 at 09:01; Status UNV Furosemide (Lasix) 40 mg 1X ONCE IVP Last administered on 12/24/19at 11:51; Start 12/24/19 at 11:30; Stop 12/24/19 at 11:31; Status DC Furosemide (Lasix) 40 mg DAILY IVP ; Start 12/25/19 at 09:00 Aspirin (Silke Aspirin) 81 mg DAILYWBKFT PO Last administered on 12/25/19 08:29; Start 12/24/19 at 14:00 Clopidogrel Bisulfate (Plavix) 75 mg DAILYWBKFT PO Last administered on 12/25/19 08:29; Start 12/24/19 at 14:00 Spironolactone (Aldactone) 25 mg DAILY PO Last administered on 12/25/19 08:29; Start 12/25/19 at 09:00 Losartan Potassium (Cozaar) 25 mg DAILY PO Last administered on 12/25/19 08:29; Start 12/25/19 at 09:00 Sertraline HCl (Zoloft) 100 mg DAILY PO Last administered on 12/25/19 08:28; Start 12/25/19 at 09:00 Tamsulosin HCl (Flomax) 0.4 mg QHS PO Last administered on 12/24/19 21:19; Start 12/24/19 at 21:00 Finasteride (Proscar) 5 mg DAILY PO Last administered on 12/25/19 08:29; Start 12/25/19 at 09:00 Mirtazapine (Remeron) 7.5 mg QHS PO Last administered on 12/24/19 21:19; Start 12/24/19 at 21:00 Acetaminophen (Tylenol) 650 mg PRN Q6HRS PRN PO RECTAL PAIN; Start 12/24/19 at 13:15 Senna/Docusate Sodium (Senna Plus) 1 tab DAILY PO Last administered on 12/25/19 08:29; Start 12/25/19 at 09:00 Memantine (Namenda) 10 mg BID PO Last administered on 12/25/19 08:29; Start 12/24/19 at 21:00 Multivitamins (Thera M Plus) 1 tab DAILY PO Last administered on 12/25/19 08:29; Start 12/25/19 at 09:00 Atorvastatin Calcium (Lipitor) 40 mg QHS PO Last administered on 12/24/19 21:19; Start 12/24/19 at 21:00 Nitroglycerin (Nitrostat) 0.4 mg PRN Q5MIN PRN SL CHEST PAIN; Start 12/24/19 at 13:15 Magnesium Hydroxide (Milk Of Magnesia) 2,400 mg PRN DAILY PRN PO CONSTIPATION; Start 12/24/19 at 13:15 Albuterol/ Ipratropium (Duoneb) 3 ml RTQID NEB ; Start 12/25/19 at 08:00 Diltiazem HCl (Cardizem 24hr Cd) 120 mg DAILY PO ; Start 12/25/19 at 11:00 Active Scripts Active Flomax (Tamsulosin Hcl) 0.4 Mg Cap.er.24h 0.4 Mg PO QHS Nitrostat (Nitroglycerin) 0.4 Mg Tab.subl 0.4 Mg SL PRN Q5MIN PRN Reported Acetaminophen 325 Mg Tablet 2 Tab PO PRN Q6HRS PRN 30 Days Senna-Docusate Sodium Tablet (Sennosides/Docusate Sodium) 1 Each Tablet 1 Tab PO DAILY 20 Days Ondansetron Odt (Ondansetron) 4 Mg Tab.rapdis 1 Tab PO PRN Q6-8HRS Mirtazapine 15 Mg Tab.rapdis 1 Tab PO QHS 30 Days Cipro (Ciprofloxacin Hcl) 500 Mg Tablet 1 Tab PO BID 2 Days Zoloft (Sertraline Hcl) 50 Mg Tablet 100 Mg PO DAILY Polyethylene Glycol 3350 2,500 Gm Powder 17 Gm PO DAILY PRN Finasteride 5 Mg Tablet 1 Tab PO DAILY Atorvastatin Calcium 40 Mg Tablet 1 Tab PO DAILY Albuterol Sulfate Conc Neb Soln (Albuterol Sulfate) 2.5 Mg/0.5 Ml Vial.neb 1 Vial NEB Q6HRS PRN Acetaminophen 325 Mg Tablet 2 Tab PO PRN Q6HRS PRN 30 Days Potassium Chloride (Potassium Chloride) 10 Meq Capsule.er 10 Meq PO DAILY Namenda Xr (Memantine Hcl) 28 Mg Cap.spr.24 28 Mg PO DAILY Daily Vitamin (Multivitamin) 1 Each Tablet 1 Each PO DAILY Vitals/I & O Vital Sign - Last 24 Hours 12/24/19 12/24/19 12/24/19 12/24/19 10:52 15:05 19:45 20:00 Temp 97.3 97.3 97.7 97.3 97.3 97.7 Pulse 69 64 68 Resp 26 24 17 B/P (MAP) 127/74 (91) 145/70 (95) 184/88 (120) Pulse Ox 90 100 97 O2 Delivery Nasal Cannula Nasal Cannula Nasal Cannula Nasal Cannula O2 Flow Rate 4.0 3.0 2.5 2.5 12/24/19 12/25/19 12/25/19 12/25/19 23:40 03:00 07:00 08:29 Temp 96.2 97.4 97.6 96.2 97.4 97.6 Pulse 55 56 63 63 Resp 16 18 20 B/P (MAP) 133/84 (100) 120/61 (80) 155/63 (93) 155/63 Pulse Ox 94 91 91 O2 Delivery Nasal Cannula Nasal Cannula Nasal Cannula O2 Flow Rate 2.5 2.5 2.0 Intake and Output 12/24/19 12/24/19 12/25/19 15:00 23:00 07:00 Intake Total 360 ml 360 ml 100 ml Output Total 350 ml 850 ml 350 ml Balance 10 ml -490 ml -250 ml Justifications for Admission Other Justification YAQUELIN LUJAN MD Dec 25, 2019 10:55
[2019-12-25 11:00] VITALS: BP 149/63
[2019-12-25 14:51] VITALS: BP 162/78
[2019-12-25 19:39] VITALS: BP 150/56
[2019-12-25] MEDS: ATORVASTATIN CALCIUM 40 MG TABLET. PO SCH (20:00)
[2019-12-25] MEDS: TAMSULOSIN 0.4 MG CAP.ER.24H. PO SCH (20:00)
[2019-12-25] MEDS: FUROSEMIDE 40 MG/4 ML VIAL. IVP SCH (20:01)
[2019-12-25] MEDS: MIRTAZAPINE 7.5 MG TABLET. PO SCH (20:01)
[2019-12-25 23:10] VITALS: BP 113/56
[2019-12-26 03:30] VITALS: BP 109/80
[2019-12-26 04:12] LABS: BASO # 0.1 x10^3/uL (0.0-0.2); BASO % 1 % (0-3); EOS # 0.2 x10^3/uL (0.0-0.7); EOS % 2 % (0-3); HEMATOCRIT 41.2 % (39.0-53.0); HEMOGLOBIN 13.7 g/dL (13.0-17.5); LYMPH # 1.6 x10^3/uL (1.0-4.8); LYMPH % 13 % (24-48); MEAN CORPUSCULAR HEMOGLOBIN 32 pg (25-35); MEAN CORPUSCULAR HGB CONC 33 g/dL (31-37); MEAN CORPUSCULAR VOLUME 96 fL (79-100); MONO % 8 % (0-9); NEUT # 9.7 x10^3/uL (1.8-7.7); NEUT % 77 % (31-73); PLATELET COUNT 206 x10^3/uL (140-400); RED CELL DISTRIBUTION WIDTH 16.9 % (11.5-14.5); WHITE BLOOD COUNT 12.6 x10^3/uL (4.0-11.0)
[2019-12-26 04:29] LABS: CALCIUM 8.9 mg/dL (8.5-10.1); CREATININE 1.2 mg/dL (0.7-1.3); GFR 57.5; MAGNESIUM 2.3 mg/dL (1.8-2.4); POTASSIUM 3.1 mmol/L (3.5-5.1)
[2019-12-26 07:00] VITALS: BP 127/55
[2019-12-26] MEDS: IPRATRPIUM/ALBUTEROL 0.5/2.5MG 3 ML NEBU. NEB SCH ×4 (07:58→20:26)
[2019-12-26] MEDS: MEMANTINE 10 MG TABLET. PO SCH ×2 (08:32→20:48)
[2019-12-26] MEDS: MULTIVITAMIN with MINERAL TABLET. PO SCH (08:33)
[2019-12-26] MEDS: FINASTERIDE 5 MG TABLET. PO SCH (08:33)
[2019-12-26] MEDS: CLOPIDOGREL BISULFATE 75 MG TABLET PO SCH (08:33)
[2019-12-26] MEDS: SERTRALINE 50 MG TABLET. PO SCH (08:33)
[2019-12-26] MEDS: SENNOSIDES/DOCUSATE 8.6/50MG TABLET. PO SCH (08:33)
--- NOTE | 2019-12-26 08:33 | PDOC ---
Infectious Disease Note Subjective Subjective pt is feeling good, no n/v/d/ ROS ROS no n/v/d/sob/fever Vital Sign Vital Signs Vital Signs Date Time Temp Pulse Resp B/P (MAP) Pulse Ox O2 Delivery O2 Flow Rate FiO2 12/26/19 07:58 99 Nasal Cannula 3.5 12/26/19 07:00 97.6 56 22 127/55 (79) 97.6 Physical Exam PHYSICAL EXAM CONSTITUTIONAL: He is lying in bed. He is cooperative. He is in no acute distress. He responds to questions. Looks a little more tired today HEENT: He has normal conjunctivae. Oral cavity, oropharynx is clear, somewhat dry. NECK: Without fullness. Good range of motion. HEART: With S1, S2. LUNGS: Decreased in the bases, no wheeze. ABDOMEN: Soft, nontender, no guarding or rebound. EXTREMITIES: Without clubbing, cyanosis. He has MACARIO hose in place with trace edema. SKIN: Warm to touch without signs of rash. NEUROLOGIC: Nonfocal, answers questions, but moves all extremities. PSYCHIATRIC: Affect is appropriate Labs Lab Laboratory Tests Test 12/26/19 03:15 White Blood Count 12.6 x10^3/uL (4.0-11.0) Red Blood Count 4.30 x10^6/uL (4.30-5.70) Hemoglobin 13.7 g/dL (13.0-17.5) Hematocrit 41.2 % (39.0-53.0) Mean Corpuscular Volume 96 fL (79-100) Mean Corpuscular Hemoglobin 32 pg (25-35) Mean Corpuscular Hemoglobin Concent 33 g/dL (31-37) Red Cell Distribution Width 16.9 % (11.5-14.5) Platelet Count 206 x10^3/uL (140-400) Neutrophils (%) (Auto) 77 % (31-73) Lymphocytes (%) (Auto) 13 % (24-48) Monocytes (%) (Auto) 8 % (0-9) Eosinophils (%) (Auto) 2 % (0-3) Basophils (%) (Auto) 1 % (0-3) Neutrophils # (Auto) 9.7 x10^3/uL (1.8-7.7) Lymphocytes # (Auto) 1.6 x10^3/uL (1.0-4.8) Monocytes # (Auto) 1.0 x10^3/uL (0.0-1.1) Eosinophils # (Auto) 0.2 x10^3/uL (0.0-0.7) Basophils # (Auto) 0.1 x10^3/uL (0.0-0.2) Sodium Level 145 mmol/L (136-145) Potassium Level 3.1 mmol/L (3.5-5.1) Chloride Level 104 mmol/L (98-107) Carbon Dioxide Level 38 mmol/L (21-32) Anion Gap 3 (6-14) Blood Urea Nitrogen 23 mg/dL (8-26) Creatinine 1.2 mg/dL (0.7-1.3) Estimated GFR (Cockcroft-Gault) 57.5 Glucose Level 91 mg/dL (70-99) Calcium Level 8.9 mg/dL (8.5-10.1) Magnesium Level 2.3 mg/dL (1.8-2.4) Micro Microbiology 12/23/19 Blood Culture - Preliminary, Resulted NO GROWTH AFTER 2 DAYS Objective Assessment CHF - BNP >35,000 R pleural effusion Dementia H/o Bradycardia Had been on Cipro starting 12/18 Plan Plan of Care Does not seem to have an active infection. will s/o , call if questions YOSSI HERBERT MD Dec 26, 2019 08:33
[2019-12-26] MEDS: ASPIRIN 325 MG TABLET PO SCH (08:34)
[2019-12-26] MEDS: SPIRONOLACTONE 25 MG TABLET PO SCH (08:34)
[2019-12-26] MEDS: LOSARTAN POTASSIUM 25 MG TABLET. PO SCH (08:35)
[2019-12-26] MEDS: FUROSEMIDE 40 MG/4 ML VIAL. IVP SCH (08:40)
--- NOTE | 2019-12-26 09:07 | EKG ---
[facility] [address] [place] [address] Test Date: 2019-12-23 Test Time: 22:25:45 Pat Name: CRISTOFER RATLIFF Department: Room: Gender: M Registered Appraiser: : [id number] Requested By: ABELARDO MCBRIDE Order Number: [id number] Reading MD: Measurements Intervals [place] Rate: 85 P: 38 [place]: 136 QRS: 27 QRSD: 106 T: 26 QT: 366 QTc: 436 Interpretive Statements SINUS RHYTHM VENTRICULAR PREMATURE COMPLEX(ES), BIGEMINY ATRIAL PREMATURE COMPLEX(ES) ABNORMAL ECG RI6.02 No previous ECG available for comparison
[2019-12-26] MEDS ORDERED: POTASSIUM CHLORIDE 20 MEQ TABLET.ER. PO ONE (10:15)
--- NOTE | 2019-12-26 10:17 | PDOC ---
PROGRESS NOTES Date of Service DATE: 12/26/19 TIME: 10:14 Subjective Subjective denies chest pain or shortness of breath. lab reviewed. potassium 3.1 and wbc higher 12.6. afebrile. he had a good diruesis Objective Objective Vital Signs Date Time Temp Pulse Resp B/P (MAP) Pulse Ox O2 Delivery O2 Flow Rate FiO2 12/26/19 08:38 60 127/55 12/26/19 07:58 99 Nasal Cannula 3.5 12/26/19 07:00 97.6 22 97.6 Intake and Output 12/26/19 07:00 Intake Total 1180 ml Output Total 1800 ml Balance -620 ml Intake Oral 1180 ml Output Urine Total 1800 ml Physical Exam Abdomen: Soft Heart: Normal S1, Normal S2 Extremities: No edema General: Alert HEENT: Atraumatic Lungs: Other (decreased breath sounds bilaterally) Neuro: Normal speech Psych/Mental Status: Mood NL, Other (confused) Skin: No rashes Assessment Assessment Problems1. Acute on chronic systolic congestive heart failure. 2. Ischemic cardiomyopathy. 3. Coronary artery disease with previous coronary angioplasty and stent. 4. Peripheral arterial disease. 5. Alzheimer's disease. 6. Right pleural effusion. 7. Acute hypoxic respiratory failure. 8. Severe protein-calorie malnutrition. 9. Hyperlipidemia. hypokalemia leukocytosis Medical Problems: (1) Atrial fibrillation with rapid ventricular response Status: Acute (2) CHF (congestive heart failure) Status: Acute (3) Pleural effusion, right Status: Acute Plan Plan of Care replete kcl decrease iv lasix cxr today urinalysis and urine culture continue losartan and spironolactone lab tomorow Comment Review of Relevant I have reviewed the following items deloris (where applicable) has been applied. Labs Laboratory Tests Test 12/25/19 06:45 12/26/19 03:15 Sodium Level 145 mmol/L (136-145) 145 mmol/L (136-145) Potassium Level 4.0 mmol/L (3.5-5.1) 3.1 mmol/L (3.5-5.1) Chloride Level 105 mmol/L (98-107) 104 mmol/L (98-107) Carbon Dioxide Level 38 mmol/L (21-32) 38 mmol/L (21-32) Anion Gap 2 (6-14) 3 (6-14) Blood Urea Nitrogen 20 mg/dL (8-26) 23 mg/dL (8-26) Creatinine 1.0 mg/dL (0.7-1.3) 1.2 mg/dL (0.7-1.3) Estimated GFR (Cockcroft-Gault) 71.0 57.5 Glucose Level 82 mg/dL (70-99) 91 mg/dL (70-99) Calcium Level 8.8 mg/dL (8.5-10.1) 8.9 mg/dL (8.5-10.1) Magnesium Level 2.1 mg/dL (1.8-2.4) 2.3 mg/dL (1.8-2.4) Triglycerides Level 69 mg/dL (0-150) Cholesterol Level 151 mg/dL (0-200) LDL Cholesterol, Calculated 76 mg/dL (0-100) VLDL Cholesterol, Calculated 14 mg/dL (0-40) Non-HDL Cholesterol Calculated 90 mg/dL (0-129) HDL Cholesterol 61 mg/dL (40-60) Cholesterol/HDL Ratio 2.5 White Blood Count 12.6 x10^3/uL (4.0-11.0) Red Blood Count 4.30 x10^6/uL (4.30-5.70) Hemoglobin 13.7 g/dL (13.0-17.5) Hematocrit 41.2 % (39.0-53.0) Mean Corpuscular Volume 96 fL (79-100) Mean Corpuscular Hemoglobin 32 pg (25-35) Mean Corpuscular Hemoglobin Concent 33 g/dL (31-37) Red Cell Distribution Width 16.9 % (11.5-14.5) Platelet Count 206 x10^3/uL (140-400) Neutrophils (%) (Auto) 77 % (31-73) Lymphocytes (%) (Auto) 13 % (24-48) Monocytes (%) (Auto) 8 % (0-9) Eosinophils (%) (Auto) 2 % (0-3) Basophils (%) (Auto) 1 % (0-3) Neutrophils # (Auto) 9.7 x10^3/uL (1.8-7.7) Lymphocytes # (Auto) 1.6 x10^3/uL (1.0-4.8) Monocytes # (Auto) 1.0 x10^3/uL (0.0-1.1) Eosinophils # (Auto) 0.2 x10^3/uL (0.0-0.7) Basophils # (Auto) 0.1 x10^3/uL (0.0-0.2) Laboratory Tests Test 12/26/19 03:15 White Blood Count 12.6 x10^3/uL (4.0-11.0) Red Blood Count 4.30 x10^6/uL (4.30-5.70) Hemoglobin 13.7 g/dL (13.0-17.5) Hematocrit 41.2 % (39.0-53.0) Mean Corpuscular Volume 96 fL (79-100) Mean Corpuscular Hemoglobin 32 pg (25-35) Mean Corpuscular Hemoglobin Concent 33 g/dL (31-37) Red Cell Distribution Width 16.9 % (11.5-14.5) Platelet Count 206 x10^3/uL (140-400) Neutrophils (%) (Auto) 77 % (31-73) Lymphocytes (%) (Auto) 13 % (24-48) Monocytes (%) (Auto) 8 % (0-9) Eosinophils (%) (Auto) 2 % (0-3) Basophils (%) (Auto) 1 % (0-3) Neutrophils # (Auto) 9.7 x10^3/uL (1.8-7.7) Lymphocytes # (Auto) 1.6 x10^3/uL (1.0-4.8) Monocytes # (Auto) 1.0 x10^3/uL (0.0-1.1) Eosinophils # (Auto) 0.2 x10^3/uL (0.0-0.7) Basophils # (Auto) 0.1 x10^3/uL (0.0-0.2) Sodium Level 145 mmol/L (136-145) Potassium Level 3.1 mmol/L (3.5-5.1) Chloride Level 104 mmol/L (98-107) Carbon Dioxide Level 38 mmol/L (21-32) Anion Gap 3 (6-14) Blood Urea Nitrogen 23 mg/dL (8-26) Creatinine 1.2 mg/dL (0.7-1.3) Estimated GFR (Cockcroft-Gault) 57.5 Glucose Level 91 mg/dL (70-99) Calcium Level 8.9 mg/dL (8.5-10.1) Magnesium Level 2.3 mg/dL (1.8-2.4) Microbiology 12/23/19 Blood Culture - Preliminary, Resulted NO GROWTH AFTER 2 DAYS Medications Current Medications Piperacillin Sod/ Tazobactam Sod 3.375 gm/Sodium Chloride 50 ml @ 100 mls/hr 1X ONCE IV Last administered on 12/23/19at 23:25; Start 12/23/19 at 23:30; Stop 12/23/19 at 23:59; Status DC Levofloxacin/ Dextrose 150 ml @ 100 mls/hr 1X ONCE IV Last administered on 12/24/19at 00:12; Start 12/23/19 at 23:30; Stop 12/24/19 at 00:59; Status DC Furosemide (Lasix) 40 mg 1X ONCE IVP Last administered on 12/23/19at 23:31; Start 12/23/19 at 23:30; Stop 12/23/19 at 23:31; Status DC Aspirin (Aspirin Chewable) 324 mg 1X ONCE PO Last administered on 12/24/19at 01:22; Start 12/24/19 at 01:00; Stop 12/24/19 at 01:01; Status DC Ondansetron HCl (Zofran) 4 mg PRN Q8HRS PRN IV NAUSEA/VOMITING 1ST CHOICE; Start 12/24/19 at 00:45; Stop 12/25/19 at 00:44; Status DC Diltiazem HCl (Cardizem Iv Push) 10 mg 1X ONCE IVP ; Start 12/24/19 at 01:30; Stop 12/24/19 at 01:31; Status DC Diltiazem HCl 125 mg/Sodium Chloride 125 ml @ 5 mls/hr CONT PRN IV SEE I/O RECORD; Start 12/24/19 at 01:30; Stop 12/26/19 at 10:13; Status DC Info (FLU VACCINE SCREEN per RX) 1 each 1X ONCE MC ; Start 12/24/19 at 09:00; Stop 12/24/19 at 09:01; Status UNV Furosemide (Lasix) 40 mg 1X ONCE IVP Last administered on 12/24/19at 11:51; Start 12/24/19 at 11:30; Stop 12/24/19 at 11:31; Status DC Furosemide (Lasix) 40 mg DAILY IVP ; Start 12/25/19 at 09:00; Stop 12/25/19 at 10:50; Status DC Aspirin (Silke Aspirin) 81 mg DAILYWBKFT PO Last administered on 12/26/19at 08:34; Start 12/24/19 at 14:00 Clopidogrel Bisulfate (Plavix) 75 mg DAILYWBKFT PO Last administered on 12/26/19 08:33; Start 12/24/19 at 14:00 Spironolactone (Aldactone) 25 mg DAILY PO Last administered on 12/26/19 08:34; Start 12/25/19 at 09:00 Losartan Potassium (Cozaar) 25 mg DAILY PO Last administered on 12/26/19at 08:3 5; Start 12/25/19 at 09:00 Sertraline HCl (Zoloft) 100 mg DAILY PO Last administered on 12/26/19 08:33; Start 12/25/19 at 09:00 Tamsulosin HCl (Flomax) 0.4 mg QHS PO Last administered on 12/25/19at 20:00; Start 12/24/19 at 21:00 Finasteride (Proscar) 5 mg DAILY PO Last administered on 12/26/19 08:33; Start 12/25/19 at 09:00 Mirtazapine (Remeron) 7.5 mg QHS PO Last administered on 12/25/19at 20:01; Start 12/24/19 at 21:00 Acetaminophen (Tylenol) 650 mg PRN Q6HRS PRN PO RECTAL PAIN; Start 12/24/19 at 13:15 Senna/Docusate Sodium (Senna Plus) 1 tab DAILY PO Last administered on 12/26/19 08:33; Start 12/25/19 at 09:00 Memantine (Namenda) 10 mg BID PO Last administered on 12/26/19 08:32; Start 12/24/19 at 21:00 Multivitamins (Thera M Plus) 1 tab DAILY PO Last administered on 12/26/19at 08:33; Start 12/25/19 at 09:00 Atorvastatin Calcium (Lipitor) 40 mg QHS PO Last administered on 12/25/19at 20:00; Start 12/24/19 at 21:00 Nitroglycerin (Nitrostat) 0.4 mg PRN Q5MIN PRN SL CHEST PAIN; Start 12/24/19 at 13:15 Magnesium Hydroxide (Milk Of Magnesia) 2,400 mg PRN DAILY PRN PO CONSTIPATION; Start 12/24/19 at 13:15 Albuterol/ Ipratropium (Duoneb) 3 ml RTQID NEB Last administered on 12/26/19at 07:58; Start 12/25/19 at 08:00 Diltiazem HCl (Cardizem 24hr Cd) 120 mg DAILY PO Last administered on 12/26/19at 08:38; Start 12/25/19 at 11:00 Furosemide (Lasix) 40 mg Q12HR IVP Last administered on 12/26/19at 08:40; Start 12/25/19 at 21:00; Stop 12/26/19 at 10:13; Status DC Furosemide (Lasix) 40 mg DAILY IVP ; Start 12/27/19 at 09:00; Status UNV Potassium Chloride (Klor-Con) 40 meq 1X ONCE PO ; Start 12/26/19 at 10:15; Stop 12/26/19 at 10:16; Status UNV Active Scripts Active Flomax (Tamsulosin Hcl) 0.4 Mg Cap.er.24h 0.4 Mg PO QHS Nitrostat (Nitroglycerin) 0.4 Mg Tab.subl 0.4 Mg SL PRN Q5MIN PRN Reported Acetaminophen 325 Mg Tablet 2 Tab PO PRN Q6HRS PRN 30 Days Senna-Docusate Sodium Tablet (Sennosides/Docusate Sodium) 1 Each Tablet 1 Tab PO DAILY 20 Days Ondansetron Odt (Ondansetron) 4 Mg Tab.rapdis 1 Tab PO PRN Q6-8HRS Mirtazapine 15 Mg Tab.rapdis 1 Tab PO QHS 30 Days Cipro (Ciprofloxacin Hcl) 500 Mg Tablet 1 Tab PO BID 2 Days Zoloft (Sertraline Hcl) 50 Mg Tablet 100 Mg PO DAILY Polyethylene Glycol 3350 2,500 Gm Powder 17 Gm PO DAILY PRN Finasteride 5 Mg Tablet 1 Tab PO DAILY Atorvastatin Calcium 40 Mg Tablet 1 Tab PO DAILY Albuterol Sulfate Conc Neb Soln (Albuterol Sulfate) 2.5 Mg/0.5 Ml Vial.neb 1 Vial NEB Q6HRS PRN Acetaminophen 325 Mg Tablet 2 Tab PO PRN Q6HRS PRN 30 Days Potassium Chloride (Potassium Chloride) 10 Meq Capsule.er 10 Meq PO DAILY Namenda Xr (Memantine Hcl) 28 Mg Cap.spr.24 28 Mg PO DAILY Daily Vitamin (Multivitamin) 1 Each Tablet 1 Each PO DAILY Vitals/I & O Vital Sign - Last 24 Hours 12/25/19 12/25/19 12/25/19 12/25/19 11:00 12:16 12:53 14:51 Temp 97.8 98.1 97.8 98.1 Pulse 72 72 61 Resp 22 22 B/P (MAP) 149/63 (91) 149/63 162/78 (106) Pulse Ox 95 94 97 O2 Delivery Nasal Cannula Nasal Cannula Nasal Cannula O2 Flow Rate 4.0 4.0 4.0 12/25/19 12/25/19 12/25/19 12/25/19 15:39 19:39 20:00 21:09 Temp 97.8 97.8 Pulse 60 Resp 18 B/P (MAP) 150/56 (87) Pulse Ox 98 91 93 O2 Delivery Nasal Cannula Nasal Cannula Nasal Cannula Nasal Cannula O2 Flow Rate 4.0 4.0 3.5 3.5 12/25/19 12/26/19 12/26/19 12/26/19 23:10 03:30 07:00 07:58 Temp 97.9 97.5 97.6 97.9 97.5 97.6 Pulse 64 71 56 Resp 18 18 22 B/P (MAP) 113/56 (75) 109/80 (90) 127/55 (79) Pulse Ox 98 99 100 99 O2 Delivery Nasal Cannula Nasal Cannula Nasal Cannula Nasal Cannula O2 Flow Rate 4.0 4.0 4.0 3.5 12/26/19 12/26/19 08:35 08:38 Pulse 56 60 B/P (MAP) 127/55 127/55 Intake and Output 12/25/19 12/25/19 12/26/19 15:00 23:00 07:00 Intake Total 340 ml 740 ml 100 ml Output Total 500 ml 1300 ml Balance 340 ml 240 ml -1200 ml Justifications for Admission Other Justification YAQUELIN LUJAN MD Dec 26, 2019 10:17
[2019-12-26 10:54] VITALS: BP 123/57
--- NOTE | 2019-12-26 11:56 | PDOC ---
TEJ ZHU HOT PRESS OPERATOR 12/26/19 1156: CARDIO Progress Notes Date and Time Date of Service 12/26/19 Time of Evaluation 1145 Subjective Subjective: No Chest Pain, No Palpitations, Other (Still slightly SOA) Vitals Vitals Vital Signs Date Time Temp Pulse Resp B/P (MAP) Pulse Ox O2 Delivery O2 Flow Rate FiO2 12/26/19 10:54 97.5 67 22 123/57 (79) 93 Nasal Cannula 4.0 97.5 Weight Weight [ ] Input and Output Intake and Output Intake and Output 12/26/19 07:00 Intake Total 1180 ml Output Total 1800 ml Balance -620 ml Intake Oral 1180 ml Output Urine Total 1800 ml Laboratory Labs Laboratory Tests Test 12/26/19 03:15 White Blood Count 12.6 x10^3/uL (4.0-11.0) Red Blood Count 4.30 x10^6/uL (4.30-5.70) Hemoglobin 13.7 g/dL (13.0-17.5) Hematocrit 41.2 % (39.0-53.0) Mean Corpuscular Volume 96 fL (79-100) Mean Corpuscular Hemoglobin 32 pg (25-35) Mean Corpuscular Hemoglobin Concent 33 g/dL (31-37) Red Cell Distribution Width 16.9 % (11.5-14.5) Platelet Count 206 x10^3/uL (140-400) Neutrophils (%) (Auto) 77 % (31-73) Lymphocytes (%) (Auto) 13 % (24-48) Monocytes (%) (Auto) 8 % (0-9) Eosinophils (%) (Auto) 2 % (0-3) Basophils (%) (Auto) 1 % (0-3) Neutrophils # (Auto) 9.7 x10^3/uL (1.8-7.7) Lymphocytes # (Auto) 1.6 x10^3/uL (1.0-4.8) Monocytes # (Auto) 1.0 x10^3/uL (0.0-1.1) Eosinophils # (Auto) 0.2 x10^3/uL (0.0-0.7) Basophils # (Auto) 0.1 x10^3/uL (0.0-0.2) Sodium Level 145 mmol/L (136-145) Potassium Level 3.1 mmol/L (3.5-5.1) Chloride Level 104 mmol/L (98-107) Carbon Dioxide Level 38 mmol/L (21-32) Anion Gap 3 (6-14) Blood Urea Nitrogen 23 mg/dL (8-26) Creatinine 1.2 mg/dL (0.7-1.3) Estimated GFR (Cockcroft-Gault) 57.5 Glucose Level 91 mg/dL (70-99) Calcium Level 8.9 mg/dL (8.5-10.1) Magnesium Level 2.3 mg/dL (1.8-2.4) Microbiology Micro Microbiology 12/23/19 Blood Culture - Preliminary, Resulted NO GROWTH AFTER 2 DAYS Physical Exam HEENT: Neck Supple W Full Motion Chest: Symmetric LUNGS: Other (diminished bases) Heart: other (sharmila) Abdomen: Soft N/T Extremities: No Edema Neurology: alert, follow commands, confused Assessment Assessment 1. Acute respiratory failure with acute on chronic systolic heart failure and pleural effusion 2. ICM; LVEF 30-35% 2. CAD; s/p PCI/stents to RCA, LAD 2015. Clinically stable 3. AFIB with RVR; new onset. H/o sinus bradycardia- BB discontinued in past. On oral Cardizem. Now SB 4. Hypertension; controlled 5. PVD s/p NARROW GAUGE OPERATOR/stents; denies claudication symptoms 6. Hyperlipidemia; statin 7. Right-sided pleural effusion. Has also been recently treated for probable pneumonia 8. Dementia. Recommendations Ongoing diuresis Will use low-dose BB for rate control given h/o CAD. D/c cardizem Monitor for bradycardia Consider outpatient event monitor to r/o tachy/sharmila ASA therapy. Probably poor candidate for long-term OAC. Consider of TAYLOR closure device. Secondary prevention Okay to hold Plavix for thoracentesis Supportive care Justicifation of Admission Dx: Justifications for Admission: Justification of Admission Dx: Yes (CHF, EFFUSION ,HYPOXIA) JUAN R FUNES MD 12/26/19 2000: CARDIO Progress Notes Assessment Assessment Patient seen and examined. Agree with CONSTRUCTION MANAGEMENT INSTRUCTOR's assessment and plan. Continue diuresis for acute on chr systolic HF Plan for thoracentesis per pulm CAD clinically stable AF new onset presently in sinus sharmila Probably poor candidate for assistant terminal manager AC - plan outpatient referral for LAAO procedure Agree with outpatient event monitor TEJ ZHU APRN Dec 26, 2019 11:56 JUAN R FUNES MD Dec 26, 2019 20:00
--- NOTE | 2019-12-26 12:10 | PDOC ---
PULMONARY PROGRESS NOTES DATE: 12/26/19 TIME: 12:08 Subjective no soa Vitals Vital Signs Date Time Temp Pulse Resp B/P (MAP) Pulse Ox O2 Delivery O2 Flow Rate FiO2 12/26/19 11:49 95 Nasal Cannula 3.5 12/26/19 10:54 97.5 67 22 123/57 (79) 97.5 General: Alert, No acute distress Lungs: Other (decrease right base) Cardiovascular: S1 Abdomen: Soft Neuro Exam: Alert Extremities: No Edema Skin: Warm Labs Laboratory Tests Test 12/25/19 06:45 12/26/19 03:15 Sodium Level 145 mmol/L (136-145) 145 mmol/L (136-145) Potassium Level 4.0 mmol/L (3.5-5.1) 3.1 mmol/L (3.5-5.1) Chloride Level 105 mmol/L (98-107) 104 mmol/L (98-107) Carbon Dioxide Level 38 mmol/L (21-32) 38 mmol/L (21-32) Anion Gap 2 (6-14) 3 (6-14) Blood Urea Nitrogen 20 mg/dL (8-26) 23 mg/dL (8-26) Creatinine 1.0 mg/dL (0.7-1.3) 1.2 mg/dL (0.7-1.3) Estimated GFR (Cockcroft-Gault) 71.0 57.5 Glucose Level 82 mg/dL (70-99) 91 mg/dL (70-99) Calcium Level 8.8 mg/dL (8.5-10.1) 8.9 mg/dL (8.5-10.1) Magnesium Level 2.1 mg/dL (1.8-2.4) 2.3 mg/dL (1.8-2.4) Triglycerides Level 69 mg/dL (0-150) Cholesterol Level 151 mg/dL (0-200) LDL Cholesterol, Calculated 76 mg/dL (0-100) VLDL Cholesterol, Calculated 14 mg/dL (0-40) Non-HDL Cholesterol Calculated 90 mg/dL (0-129) HDL Cholesterol 61 mg/dL (40-60) Cholesterol/HDL Ratio 2.5 White Blood Count 12.6 x10^3/uL (4.0-11.0) Red Blood Count 4.30 x10^6/uL (4.30-5.70) Hemoglobin 13.7 g/dL (13.0-17.5) Hematocrit 41.2 % (39.0-53.0) Mean Corpuscular Volume 96 fL (79-100) Mean Corpuscular Hemoglobin 32 pg (25-35) Mean Corpuscular Hemoglobin Concent 33 g/dL (31-37) Red Cell Distribution Width 16.9 % (11.5-14.5) Platelet Count 206 x10^3/uL (140-400) Neutrophils (%) (Auto) 77 % (31-73) Lymphocytes (%) (Auto) 13 % (24-48) Monocytes (%) (Auto) 8 % (0-9) Eosinophils (%) (Auto) 2 % (0-3) Basophils (%) (Auto) 1 % (0-3) Neutrophils # (Auto) 9.7 x10^3/uL (1.8-7.7) Lymphocytes # (Auto) 1.6 x10^3/uL (1.0-4.8) Monocytes # (Auto) 1.0 x10^3/uL (0.0-1.1) Eosinophils # (Auto) 0.2 x10^3/uL (0.0-0.7) Basophils # (Auto) 0.1 x10^3/uL (0.0-0.2) Laboratory Tests Test 12/26/19 03:15 White Blood Count 12.6 x10^3/uL (4.0-11.0) Red Blood Count 4.30 x10^6/uL (4.30-5.70) Hemoglobin 13.7 g/dL (13.0-17.5) Hematocrit 41.2 % (39.0-53.0) Mean Corpuscular Volume 96 fL (79-100) Mean Corpuscular Hemoglobin 32 pg (25-35) Mean Corpuscular Hemoglobin Concent 33 g/dL (31-37) Red Cell Distribution Width 16.9 % (11.5-14.5) Platelet Count 206 x10^3/uL (140-400) Neutrophils (%) (Auto) 77 % (31-73) Lymphocytes (%) (Auto) 13 % (24-48) Monocytes (%) (Auto) 8 % (0-9) Eosinophils (%) (Auto) 2 % (0-3) Basophils (%) (Auto) 1 % (0-3) Neutrophils # (Auto) 9.7 x10^3/uL (1.8-7.7) Lymphocytes # (Auto) 1.6 x10^3/uL (1.0-4.8) Monocytes # (Auto) 1.0 x10^3/uL (0.0-1.1) Eosinophils # (Auto) 0.2 x10^3/uL (0.0-0.7) Basophils # (Auto) 0.1 x10^3/uL (0.0-0.2) Sodium Level 145 mmol/L (136-145) Potassium Level 3.1 mmol/L (3.5-5.1) Chloride Level 104 mmol/L (98-107) Carbon Dioxide Level 38 mmol/L (21-32) Anion Gap 3 (6-14) Blood Urea Nitrogen 23 mg/dL (8-26) Creatinine 1.2 mg/dL (0.7-1.3) Estimated GFR (Cockcroft-Gault) 57.5 Glucose Level 91 mg/dL (70-99) Calcium Level 8.9 mg/dL (8.5-10.1) Magnesium Level 2.3 mg/dL (1.8-2.4) Medications Active Scripts Medications Dose Route/Sig Max Daily Dose Days Date Category Acetaminophen 325 Mg Tablet 2 Tab PO PRN Q6HRS PRN 30 12/24/19 Reported Senna-Docusate Sodium Tablet (Sennosides/Docusate Sodium) 1 Each Tablet 1 Tab PO DAILY 20 12/24/19 Reported Ondansetron Odt (Ondansetron) 4 Mg Tab.rapdis 1 Tab PO PRN Q6-8HRS 12/24/19 Reported Mirtazapine 15 Mg Tab.rapdis 1 Tab PO QHS 30 12/24/19 Reported Cipro (Ciprofloxacin Hcl) 500 Mg Tablet 1 Tab PO BID 2 12/24/19 Reported Zoloft (Sertraline Hcl) 50 Mg Tablet 100 Mg PO DAILY 06/12/19 Reported Polyethylene Glycol 3350 2,500 Gm Powder 17 Gm PO DAILY PRN 06/12/19 Reported Finasteride 5 Mg Tablet 1 Tab PO DAILY 06/12/19 Reported Atorvastatin Calcium 40 Mg Tablet 1 Tab PO DAILY 06/12/19 Reported Albuterol Sulfate Conc Neb Soln (Albuterol Sulfate) 2.5 Mg/0.5 Ml Vial.neb 1 Vial NEB Q6HRS PRN 06/12/19 Reported Acetaminophen 325 Mg Tablet 2 Tab PO PRN Q6HRS PRN 30 06/12/19 Reported Potassium Chloride (Potassium Chloride) 10 Meq Capsule.er 10 Meq PO DAILY 10/03/16 Reported Namenda Xr (Memantine Hcl) 28 Mg Cap.spr.24 28 Mg PO DAILY 10/03/16 Reported Flomax (Tamsulosin Hcl) 0.4 Mg Cap.er.24h 0.4 Mg PO QHS 02/23/16 Rx Nitrostat (Nitroglycerin) 0.4 Mg Tab.subl 0.4 Mg SL PRN Q5MIN PRN 02/23/16 Rx Daily Vitamin (Multivitamin) 1 Each Tablet 1 Each PO DAILY 01/10/14 Reported Impression . 1, Acute on chronic respiratory failure secondary to acute systolic congestive heart failure, right pleural effusion, atelectasis.RLL caused by effusion 2. Abnormal chest x-ray, effusion/infiltrate/atelectasis. 3. Ischemic cardiomyopathy. 4. Acute systolic congestive heart failure. 5. Chronic obstructive pulmonary disease. 6. Alzheimer's. 7. Paroxysmal atrial fibrillation, now in sinus rhythm. Plan . PLAN AND RECOMMENDATIONS: 1. Titrate FiO2 to keep O2 saturation 92%. 2. bronchodilator. 3. I agree with Lasix IV. May need higher dose per Cardiology. 4. I reviewed the chest x-ray/ CT of the chest . He has moderate to large right pleural effusion with collapse of RLL. He will require thoracentesis. Of note, he is on Plavix.Needs to be on hold 5. ID is consulted. 6. d/w Pt. He agrees for thoracentesis. MICHEAL WHITTINGTON MD Dec 26, 2019 12:10
--- NOTE | 2019-12-26 13:20 | EKG ---
[facility] [address] [place] [address] Test Date: 2019-12-26 Test Time: 13:13:12 Pat Name: CRISTOFER RATLIFF Department: Room: 262 1 Gender: M Rectification Printer: DAHLIA : [id number] Requested By: TEJ ZHU Order Number: [id number] Reading MD: Measurements Intervals [place] Rate: 67 P: SD: QRS: 33 QRSD: 106 T: -58 QT: 394 QTc: 419 Interpretive Statements IRREGULAR RHYTHM, NO P-WAVE FOUND VENTRICULAR PREMATURE COMPLEX(ES) LOW LIMB LEAD VOLTAGE ST & T ABNORMALITY, CONSIDER ANTEROLATERAL ISCHEMIA OR LEFT VENTRICULAR STRAIN T ABNORMALITY IN ANTERIOR LEADS ABNORMAL ECG RI6.02 Compared to ECG 12/23/2019 22:25:45 Possible ischemia now present T-wave abnormality now present Sinus rhythm no longer present
--- NOTE | 2019-12-26 13:44 | NUR ---
Patient will undergo thoracentesis, ok to hold clopidogrel per cardiology; Dr. Peterson notified.
--- NOTE | 2019-12-26 13:54 | NUR ---
SS following for discharge planning. SS reviewed pt chart and discussed with pt RN. Pt is LTC resident from [facility] and [facility], ; fax [phone]. Pt on IV Lasix and has stovall. Pt needing thoracentesis but was on Plavix. Per RN, stopping Plavix today and will have thoracentesis when medically ready. Facility requesting COVID19 test prior to return. Pt's RN notified. SS will continue to follow for discharge planning.
[2019-12-26 15:07] VITALS: BP 134/63
--- NOTE | 2019-12-26 17:00 | RAD ---
EXAM: Chest, single view. HISTORY: Congestive heart failure. COMPARISON: 12/23/2019 FINDINGS: A frontal view of the chest is obtained. There has been slight interval decrease in a small to moderate right pleural effusion with lower lobe consolidation or collapse. There is stable left retrocardiac infiltrate or atelectasis with small pleural effusion. There is a stable cardiac silhouette. There is no pneumothorax. There is emphysema with biapical pleural parenchymal scarring. There is an incidental azygos lobe. IMPRESSION: 1. Slight interval decrease in a small to moderate right pleural effusion with lower lobe consolidation or collapse. 2. Stable small left pleural effusion and left lower lobe atelectasis or infiltrate. 3. Emphysema. Electronically signed by: Mary Ann Acosta MD (12/26/2019 4:57 PM) [facility]
[2019-12-26 18:12] LABS: BILIRUBIN,URINE NEGATIVE (NEG); CLARITY,URINE CLOUDY; COLOR,URINE AMBER; NITRITE,URINE NEGATIVE (NEG); PH,URINE 8.5 (<5.0-8.0); PROTEIN,URINE >=300 mg/dL (NEG-TRACE)
[2019-12-26 18:18] LABS: BACTERIA,URINE 0 /HPF (0-FEW); RBC,URINE TNTC /HPF (0-2)
--- NOTE | 2019-12-26 18:42 | NUR ---
The patient tried to pull his catheter, minimal blood seen, no active bleeding noted. This nurse reoriented him and discussed that he has stovall catheter on.
[2019-12-26 19:24] VITALS: BP 120/67
[2019-12-26] MEDS: ATORVASTATIN CALCIUM 40 MG TABLET. PO SCH (20:48)
[2019-12-26] MEDS: MIRTAZAPINE 7.5 MG TABLET. PO SCH (20:48)
[2019-12-26] MEDS: TAMSULOSIN 0.4 MG CAP.ER.24H. PO SCH (20:48)
[2019-12-26] MEDS: METOPROLOL TART IMMED RELEASE 25 MG TABLET. PO SCH (20:48)
[2019-12-26 22:15] VITALS: BP 118/54
[2019-12-27 03:17] VITALS: BP 101/57
[2019-12-27 05:23] LABS: BASO % 0 % (0-3); EOS # 0.2 x10^3/uL (0.0-0.7); EOS % 2 % (0-3); HEMATOCRIT 41.3 % (39.0-53.0); HEMOGLOBIN 13.6 g/dL (13.0-17.5); LYMPH # 1.2 x10^3/uL (1.0-4.8); LYMPH % 8 % (24-48); MEAN CORPUSCULAR HEMOGLOBIN 31 pg (25-35); MEAN CORPUSCULAR HGB CONC 33 g/dL (31-37); MEAN CORPUSCULAR VOLUME 95 fL (79-100); MONO # 1.1 x10^3/uL (0.0-1.1); MONO % 8 % (0-9); NEUT % 83 % (31-73); PLATELET COUNT 206 x10^3/uL (140-400); RED BLOOD COUNT 4.34 x10^6/uL (4.30-5.70); RED CELL DISTRIBUTION WIDTH 17.1 % (11.5-14.5); WHITE BLOOD COUNT 14.5 x10^3/uL (4.0-11.0)
--- NOTE | 2019-12-27 05:25 | EKG ---
[facility] [address] [place] [address] Test Date: 2019-12-24 Test Time: 00:53:56 Pat Name: CRISTOFER RATLIFF Department: Room: 256 1 Gender: M Bindery Technician: : [id number] Requested By: ABELARDO MCBRIDE Order Number: [id number] Reading MD: Measurements Intervals [place] Rate: 128 P: [place]: QRS: 42 QRSD: 108 T: -22 QT: 308 QTc: 453 Interpretive Statements IRREGULAR RHYTHM, NO P-WAVE FOUND VENTRICULAR PREMATURE COMPLEX(ES) LOW LIMB LEAD VOLTAGE ABNORMAL ECG RI6.02 Compared to ECG 12/23/2019 22:25:45 Sinus rhythm no longer present
[2019-12-27 05:41] LABS: CALCIUM 8.9 mg/dL (8.5-10.1); CREATININE 1.1 mg/dL (0.7-1.3); GFR 63.6; MAGNESIUM 2.1 mg/dL (1.8-2.4); POTASSIUM 3.8 mmol/L (3.5-5.1)
[2019-12-27 07:00] VITALS: BP 119/59
[2019-12-27] MEDS: IPRATRPIUM/ALBUTEROL 0.5/2.5MG 3 ML NEBU. NEB SCH ×4 (07:46→20:26)
[2019-12-27] MEDS: ASPIRIN 325 MG TABLET PO SCH (08:00)
[2019-12-27] MEDS: SERTRALINE 50 MG TABLET. PO SCH (08:20)
[2019-12-27] MEDS: MEMANTINE 10 MG TABLET. PO SCH ×2 (08:20→20:34)
[2019-12-27] MEDS: SENNOSIDES/DOCUSATE 8.6/50MG TABLET. PO SCH (08:20)
[2019-12-27] MEDS: SPIRONOLACTONE 25 MG TABLET PO SCH (08:21)
[2019-12-27] MEDS: LOSARTAN POTASSIUM 25 MG TABLET. PO SCH (08:22)
[2019-12-27] MEDS: METOPROLOL TART IMMED RELEASE 25 MG TABLET. PO SCH ×2 (08:22→20:34)
[2019-12-27] MEDS: MULTIVITAMIN with MINERAL TABLET. PO SCH (08:22)
[2019-12-27] MEDS: FINASTERIDE 5 MG TABLET. PO SCH (08:22)
[2019-12-27] MEDS: FUROSEMIDE 40 MG/4 ML VIAL. IVP SCH (08:23)
--- NOTE | 2019-12-27 10:47 | PDOC ---
PROGRESS NOTES Date of Service DATE: 12/27/19 TIME: 10:44 Subjective Subjective confused. comfortable. lab reviewed. potassium 3.8 not short of breath at rest. Objective Objective Vital Signs Date Time Temp Pulse Resp B/P (MAP) Pulse Ox O2 Delivery O2 Flow Rate FiO2 12/27/19 08:22 53 119/59 12/27/19 08:00 Nasal Cannula 2.0 12/27/19 07:47 94 12/27/19 07:00 97.9 18 97.9 Intake and Output 12/27/19 07:00 Intake Total 630 ml Output Total 1400 ml Balance -770 ml Intake Oral 630 ml Output Urine Total 1400 ml # Bowel Movements 1 Physical Exam Abdomen: Soft Heart: Normal S1, Normal S2 Extremities: Other (1 plus bipedal edema) General: Alert HEENT: Atraumatic Lungs: Other (decreased breath sounds right base) Neuro: Normal speech Psych/Mental Status: Other (confused) Skin: No rashes Assessment Assessment Problems1. Acute on chronic systolic congestive heart failure. 2. Ischemic cardiomyopathy. 3. Coronary artery disease with previous coronary angioplasty and stent. 4. Peripheral arterial disease. 5. Alzheimer's disease. 6. Right pleural effusion. 7. Acute hypoxic respiratory failure. 8. Severe protein-calorie malnutrition. 9. Hyperlipidemia. hypokalemia resolved leukocytosis. wbc higher Medical Problems: (1) Atrial fibrillation with rapid ventricular response Status: Acute (2) CHF (congestive heart failure) Status: Acute (3) Pleural effusion, right Status: Acute Plan Plan of Care continue iv lasix thoracentesis tomorrow continue losartan and spironolactone discussed with his nurse Comment Review of Relevant I have reviewed the following items deloris (where applicable) has been applied. Labs Laboratory Tests Test 12/26/19 03:15 12/26/19 18:08 12/27/19 03:55 White Blood Count 12.6 x10^3/uL (4.0-11.0) 14.5 x10^3/uL (4.0-11.0) Red Blood Count 4.30 x10^6/uL (4.30-5.70) 4.34 x10^6/uL (4.30-5.70) Hemoglobin 13.7 g/dL (13.0-17.5) 13.6 g/dL (13.0-17.5) Hematocrit 41.2 % (39.0-53.0) 41.3 % (39.0-53.0) Mean Corpuscular Volume 96 fL (79-100) 95 fL (79-100) Mean Corpuscular Hemoglobin 32 pg (25-35) 31 pg (25-35) Mean Corpuscular Hemoglobin Concent 33 g/dL (31-37) 33 g/dL (31-37) Red Cell Distribution Width 16.9 % (11.5-14.5) 17.1 % (11.5-14.5) Platelet Count 206 x10^3/uL (140-400) 206 x10^3/uL (140-400) Neutrophils (%) (Auto) 77 % (31-73) 83 % (31-73) Lymphocytes (%) (Auto) 13 % (24-48) 8 % (24-48) Monocytes (%) (Auto) 8 % (0-9) 8 % (0-9) Eosinophils (%) (Auto) 2 % (0-3) 2 % (0-3) Basophils (%) (Auto) 1 % (0-3) 0 % (0-3) Neutrophils # (Auto) 9.7 x10^3/uL (1.8-7.7) 12.0 x10^3/uL (1.8-7.7) Lymphocytes # (Auto) 1.6 x10^3/uL (1.0-4.8) 1.2 x10^3/uL (1.0-4.8) Monocytes # (Auto) 1.0 x10^3/uL (0.0-1.1) 1.1 x10^3/uL (0.0-1.1) Eosinophils # (Auto) 0.2 x10^3/uL (0.0-0.7) 0.2 x10^3/uL (0.0-0.7) Basophils # (Auto) 0.1 x10^3/uL (0.0-0.2) 0.0 x10^3/uL (0.0-0.2) Sodium Level 145 mmol/L (136-145) 145 mmol/L (136-145) Potassium Level 3.1 mmol/L (3.5-5.1) 3.8 mmol/L (3.5-5.1) Chloride Level 104 mmol/L (98-107) 107 mmol/L (98-107) Carbon Dioxide Level 38 mmol/L (21-32) 35 mmol/L (21-32) Anion Gap 3 (6-14) 3 (6-14) Blood Urea Nitrogen 23 mg/dL (8-26) 24 mg/dL (8-26) Creatinine 1.2 mg/dL (0.7-1.3) 1.1 mg/dL (0.7-1.3) Estimated GFR (Cockcroft-Gault) 57.5 63.6 Glucose Level 91 mg/dL (70-99) 126 mg/dL (70-99) Calcium Level 8.9 mg/dL (8.5-10.1) 8.9 mg/dL (8.5-10.1) Magnesium Level 2.3 mg/dL (1.8-2.4) 2.1 mg/dL (1.8-2.4) Urine Collection Type Unknown Urine Color Leeanne Urine Clarity Cloudy Urine pH 8.5 (<5.0-8.0) Urine Specific [place] 1.020 (1.000-1.030) Urine Protein >=300 mg/dL (NEG-TRACE) Urine Glucose (UA) Negative mg/dL (NEG) Urine Ketones (Stick) Negative mg/dL (NEG) Urine Blood Large (NEG) Urine Nitrite Negative (NEG) Urine Bilirubin Negative (NEG) Urine Urobilinogen Dipstick 1.0 mg/dL (0.2 mg/dL) Urine Leukocyte Esterase Small (NEG) Urine RBC Tntc /HPF (0-2) Urine WBC 1-4 /HPF (0-4) Urine Squamous Epithelial Cells None /LPF Urine Bacteria 0 /HPF (0-FEW) Laboratory Tests Test 12/26/19 18:08 12/27/19 03:55 Urine Collection Type Unknown Urine Color Leeanne Urine Clarity Cloudy Urine pH 8.5 (<5.0-8.0) Urine Specific [place] 1.020 (1.000-1.030) Urine Protein >=300 mg/dL (NEG-TRACE) Urine Glucose (UA) Negative mg/dL (NEG) Urine Ketones (Stick) Negative mg/dL (NEG) Urine Blood Large (NEG) Urine Nitrite Negative (NEG) Urine Bilirubin Negative (NEG) Urine Urobilinogen Dipstick 1.0 mg/dL (0.2 mg/dL) Urine Leukocyte Esterase Small (NEG) Urine RBC Tntc /HPF (0-2) Urine WBC 1-4 /HPF (0-4) Urine Squamous Epithelial Cells None /LPF Urine Bacteria 0 /HPF (0-FEW) White Blood Count 14.5 x10^3/uL (4.0-11.0) Red Blood Count 4.34 x10^6/uL (4.30-5.70) Hemoglobin 13.6 g/dL (13.0-17.5) Hematocrit 41.3 % (39.0-53.0) Mean Corpuscular Volume 95 fL (79-100) Mean Corpuscular Hemoglobin 31 pg (25-35) Mean Corpuscular Hemoglobin Concent 33 g/dL (31-37) Red Cell Distribution Width 17.1 % (11.5-14.5) Platelet Count 206 x10^3/uL (140-400) Neutrophils (%) (Auto) 83 % (31-73) Lymphocytes (%) (Auto) 8 % (24-48) Monocytes (%) (Auto) 8 % (0-9) Eosinophils (%) (Auto) 2 % (0-3) Basophils (%) (Auto) 0 % (0-3) Neutrophils # (Auto) 12.0 x10^3/uL (1.8-7.7) Lymphocytes # (Auto) 1.2 x10^3/uL (1.0-4.8) Monocytes # (Auto) 1.1 x10^3/uL (0.0-1.1) Eosinophils # (Auto) 0.2 x10^3/uL (0.0-0.7) Basophils # (Auto) 0.0 x10^3/uL (0.0-0.2) Sodium Level 145 mmol/L (136-145) Potassium Level 3.8 mmol/L (3.5-5.1) Chloride Level 107 mmol/L (98-107) Carbon Dioxide Level 35 mmol/L (21-32) Anion Gap 3 (6-14) Blood Urea Nitrogen 24 mg/dL (8-26) Creatinine 1.1 mg/dL (0.7-1.3) Estimated GFR (Cockcroft-Gault) 63.6 Glucose Level 126 mg/dL (70-99) Calcium Level 8.9 mg/dL (8.5-10.1) Magnesium Level 2.1 mg/dL (1.8-2.4) Microbiology 12/23/19 Blood Culture - Preliminary, Resulted NO GROWTH AFTER 3 DAYS Medications Current Medications Piperacillin Sod/ Tazobactam Sod 3.375 gm/Sodium Chloride 50 ml @ 100 mls/hr 1X ONCE IV Last administered on 12/23/19at 23:25; Start 12/23/19 at 23:30; Stop 12/23/19 at 23:59; Status DC Levofloxacin/ Dextrose 150 ml @ 100 mls/hr 1X ONCE IV Last administered on 12/24/19at 00:12; Start 12/23/19 at 23:30; Stop 12/24/19 at 00:59; Status DC Furosemide (Lasix) 40 mg 1X ONCE IVP Last administered on 12/23/19at 23:31; Start 12/23/19 at 23:30; Stop 12/23/19 at 23:31; Status DC Aspirin (Aspirin Chewable) 324 mg 1X ONCE PO Last administered on 12/24/19at 01:22; Start 12/24/19 at 01:00; Stop 12/24/19 at 01:01; Status DC Ondansetron HCl (Zofran) 4 mg PRN Q8HRS PRN IV NAUSEA/VOMITING 1ST CHOICE; Start 12/24/19 at 00:45; Stop 12/25/19 at 00:44; Status DC Diltiazem HCl (Cardizem Iv Push) 10 mg 1X ONCE IVP ; Start 12/24/19 at 01:30; Stop 12/24/19 at 01:31; Status DC Diltiazem HCl 125 mg/Sodium Chloride 125 ml @ 5 mls/hr CONT PRN IV SEE I/O RECORD; Start 12/24/19 at 01:30; Stop 12/26/19 at 10:13; Status DC Info (FLU VACCINE SCREEN per RX) 1 each 1X ONCE MC ; Start 12/24/19 at 09:00; Stop 12/24/19 at 09:01; Status UNV Furosemide (Lasix) 40 mg 1X ONCE IVP Last administered on 12/24/19at 11:51; Start 12/24/19 at 11:30; Stop 12/24/19 at 11:31; Status DC Furosemide (Lasix) 40 mg DAILY IVP ; Start 12/25/19 at 09:00; Stop 12/25/19 at 10:50; Status DC Aspirin (Silke Aspirin) 81 mg DAILYWBKFT PO Last administered on 12/27/19at 08:00; Start 12/24/19 at 14:00 Clopidogrel Bisulfate (Plavix) 75 mg DAILYWBKFT PO Last administered on 12/26/19at 08:33; Start 12/24/19 at 14:00; Stop 12/26/19 at 13:36; Status DC Spironolactone (Aldactone) 25 mg DAILY PO Last administered on 12/27/19 08:21; Start 12/25/19 at 09:00 Losartan Potassium (Cozaar) 25 mg DAILY PO Last administered on 12/27/19 08:22; Start 12/25/19 at 09:00 Sertraline HCl (Zoloft) 100 mg DAILY PO Last administered on 12/27/19at 08:20; Start 12/25/19 at 09:00 Tamsulosin HCl (Flomax) 0.4 mg QHS PO Last administered on 12/26/19at 20:48; Start 12/24/19 at 21:00 Finasteride (Proscar) 5 mg DAILY PO Last administered on 12/27/19 08:22; Start 12/25/19 at 09:00 Mirtazapine (Remeron) 7.5 mg QHS PO Last administered on 12/26/19at 20:48; Start 12/24/19 at 21:00 Acetaminophen (Tylenol) 650 mg PRN Q6HRS PRN PO RECTAL PAIN; Start 12/24/19 at 13:15 Senna/Docusate Sodium (Senna Plus) 1 tab DAILY PO Last administered on 12/27/19 08:20; Start 12/25/19 at 09:00 Memantine (Namenda) 10 mg BID PO Last administered on 12/27/19at 08:20; Start 12/24/19 at 21:00 Multivitamins (Thera M Plus) 1 tab DAILY PO Last administered on 12/27/19at 08:22; Start 12/25/19 at 09:00 Atorvastatin Calcium (Lipitor) 40 mg QHS PO Last administered on 12/26/19at 20:48; Start 12/24/19 at 21:00 Nitroglycerin (Nitrostat) 0.4 mg PRN Q5MIN PRN SL CHEST PAIN; Start 12/24/19 at 13:15 Magnesium Hydroxide (Milk Of Magnesia) 2,400 mg PRN DAILY PRN PO CONSTIPATION; Start 12/24/19 at 13:15 Albuterol/ Ipratropium (Duoneb) 3 ml RTQID NEB Last administered on 12/27/19at 07:46; Start 12/25/19 at 08:00 Diltiazem HCl (Cardizem 24hr Cd) 120 mg DAILY PO Last administered on 12/26/19at 08:38; Start 12/25/19 at 11:00; Stop 12/26/19 at 16:37; Status DC Furosemide (Lasix) 40 mg Q12HR IVP Last administered on 12/26/19at 08:40; Start 12/25/19 at 21:00; Stop 12/26/19 at 10:13; Status DC Furosemide (Lasix) 40 mg DAILY IVP Last administered on 12/27/19at 08:23; Start 12/27/19 at 09:00 Potassium Chloride (Klor-Con) 40 meq 1X ONCE PO Last administered on 12/26/19at 10:58; Start 12/26/19 at 10:15; Stop 12/26/19 at 10:17; Status DC Metoprolol Tartrate (Lopressor) 12.5 mg BID PO Last administered on 12/27/19at 08:22; Start 12/26/19 at 21:00 Active Scripts Active Flomax (Tamsulosin Hcl) 0.4 Mg Cap.er.24h 0.4 Mg PO QHS Nitrostat (Nitroglycerin) 0.4 Mg Tab.subl 0.4 Mg SL PRN Q5MIN PRN Reported Acetaminophen 325 Mg Tablet 2 Tab PO PRN Q6HRS PRN 30 Days Senna-Docusate Sodium Tablet (Sennosides/Docusate Sodium) 1 Each Tablet 1 Tab PO DAILY 20 Days Ondansetron Odt (Ondansetron) 4 Mg Tab.rapdis 1 Tab PO PRN Q6-8HRS Mirtazapine 15 Mg Tab.rapdis 1 Tab PO QHS 30 Days Cipro (Ciprofloxacin Hcl) 500 Mg Tablet 1 Tab PO BID 2 Days Zoloft (Sertraline Hcl) 50 Mg Tablet 100 Mg PO DAILY Polyethylene Glycol 3350 2,500 Gm Powder 17 Gm PO DAILY PRN Finasteride 5 Mg Tablet 1 Tab PO DAILY Atorvastatin Calcium 40 Mg Tablet 1 Tab PO DAILY Albuterol Sulfate Conc Neb Soln (Albuterol Sulfate) 2.5 Mg/0.5 Ml Vial.neb 1 Vial NEB Q6HRS PRN Acetaminophen 325 Mg Tablet 2 Tab PO PRN Q6HRS PRN 30 Days Potassium Chloride (Potassium Chloride) 10 Meq Capsule.er 10 Meq PO DAILY Namenda Xr (Memantine Hcl) 28 Mg Cap.spr.24 28 Mg PO DAILY Daily Vitamin (Multivitamin) 1 Each Tablet 1 Each PO DAILY Vitals/I & O Vital Sign - Last 24 Hours 12/26/19 12/26/19 12/26/19 12/26/19 10:54 11:49 15:07 15:44 Temp 97.5 98.1 97.5 98.1 Pulse 67 87 Resp 20 B/P (MAP) 123/57 (79) 134/63 (86) Pulse Ox 93 95 98 95 O2 Delivery Nasal Cannula Nasal Cannula Nasal Cannula Nasal Cannula O2 Flow Rate 4.0 3.5 2.0 3.5 12/26/19 12/26/19 12/26/19 12/26/19 19:24 20:00 20:26 20:48 Temp 97.9 97.9 Pulse 80 80 Resp 22 B/P (MAP) 120/67 (84) 120/67 Pulse Ox 98 98 O2 Delivery Nasal Cannula Nasal Cannula Nasal Cannula O2 Flow Rate 2.0 2.0 2.0 12/26/19 12/27/19 12/27/19 12/27/19 22:15 03:17 07:00 07:47 Temp 98.2 97.9 97.9 98.2 97.9 97.9 Pulse 56 70 53 Resp 20 24 18 B/P (MAP) 118/54 (75) 101/57 (72) 119/59 (79) Pulse Ox 97 94 91 94 O2 Delivery Nasal Cannula Nasal Cannula Nasal Cannula Nasal Cannula O2 Flow Rate 2.0 2.0 2.0 2.0 12/27/19 12/27/19 12/27/19 08:00 08:22 08:22 Pulse 53 53 B/P (MAP) 119/59 119/59 O2 Delivery Nasal Cannula O2 Flow Rate 2.0 Intake and Output 12/26/19 12/26/19 12/27/19 15:00 23:00 07:00 Intake Total 170 ml 460 ml Output Total 900 ml 500 ml Balance 170 ml -440 ml -500 ml Justifications for Admission Other Justification YAQUELIN LUJAN MD Dec 27, 2019 10:47
[2019-12-27 11:00] VITALS: BP 90/66
--- NOTE | 2019-12-27 11:04 | PDOC ---
PULMONARY PROGRESS NOTES DATE: 12/27/19 TIME: 11:03 Subjective no soa Vitals Vital Signs Date Time Temp Pulse Resp B/P (MAP) Pulse Ox O2 Delivery O2 Flow Rate FiO2 12/27/19 08:22 53 119/59 12/27/19 08:00 Nasal Cannula 2.0 12/27/19 07:47 94 12/27/19 07:00 97.9 18 97.9 General: Alert, No acute distress Lungs: Other (decrease right base) Cardiovascular: S1 Abdomen: Soft Neuro Exam: Alert Extremities: No Edema Skin: Warm Labs Laboratory Tests Test 12/26/19 03:15 12/26/19 18:08 12/27/19 03:55 White Blood Count 12.6 x10^3/uL (4.0-11.0) 14.5 x10^3/uL (4.0-11.0) Red Blood Count 4.30 x10^6/uL (4.30-5.70) 4.34 x10^6/uL (4.30-5.70) Hemoglobin 13.7 g/dL (13.0-17.5) 13.6 g/dL (13.0-17.5) Hematocrit 41.2 % (39.0-53.0) 41.3 % (39.0-53.0) Mean Corpuscular Volume 96 fL (79-100) 95 fL (79-100) Mean Corpuscular Hemoglobin 32 pg (25-35) 31 pg (25-35) Mean Corpuscular Hemoglobin Concent 33 g/dL (31-37) 33 g/dL (31-37) Red Cell Distribution Width 16.9 % (11.5-14.5) 17.1 % (11.5-14.5) Platelet Count 206 x10^3/uL (140-400) 206 x10^3/uL (140-400) Neutrophils (%) (Auto) 77 % (31-73) 83 % (31-73) Lymphocytes (%) (Auto) 13 % (24-48) 8 % (24-48) Monocytes (%) (Auto) 8 % (0-9) 8 % (0-9) Eosinophils (%) (Auto) 2 % (0-3) 2 % (0-3) Basophils (%) (Auto) 1 % (0-3) 0 % (0-3) Neutrophils # (Auto) 9.7 x10^3/uL (1.8-7.7) 12.0 x10^3/uL (1.8-7.7) Lymphocytes # (Auto) 1.6 x10^3/uL (1.0-4.8) 1.2 x10^3/uL (1.0-4.8) Monocytes # (Auto) 1.0 x10^3/uL (0.0-1.1) 1.1 x10^3/uL (0.0-1.1) Eosinophils # (Auto) 0.2 x10^3/uL (0.0-0.7) 0.2 x10^3/uL (0.0-0.7) Basophils # (Auto) 0.1 x10^3/uL (0.0-0.2) 0.0 x10^3/uL (0.0-0.2) Sodium Level 145 mmol/L (136-145) 145 mmol/L (136-145) Potassium Level 3.1 mmol/L (3.5-5.1) 3.8 mmol/L (3.5-5.1) Chloride Level 104 mmol/L (98-107) 107 mmol/L (98-107) Carbon Dioxide Level 38 mmol/L (21-32) 35 mmol/L (21-32) Anion Gap 3 (6-14) 3 (6-14) Blood Urea Nitrogen 23 mg/dL (8-26) 24 mg/dL (8-26) Creatinine 1.2 mg/dL (0.7-1.3) 1.1 mg/dL (0.7-1.3) Estimated GFR (Cockcroft-Gault) 57.5 63.6 Glucose Level 91 mg/dL (70-99) 126 mg/dL (70-99) Calcium Level 8.9 mg/dL (8.5-10.1) 8.9 mg/dL (8.5-10.1) Magnesium Level 2.3 mg/dL (1.8-2.4) 2.1 mg/dL (1.8-2.4) Urine Collection Type Unknown Urine Color Leeanne Urine Clarity Cloudy Urine pH 8.5 (<5.0-8.0) Urine Specific [place] 1.020 (1.000-1.030) Urine Protein >=300 mg/dL (NEG-TRACE) Urine Glucose (UA) Negative mg/dL (NEG) Urine Ketones (Stick) Negative mg/dL (NEG) Urine Blood Large (NEG) Urine Nitrite Negative (NEG) Urine Bilirubin Negative (NEG) Urine Urobilinogen Dipstick 1.0 mg/dL (0.2 mg/dL) Urine Leukocyte Esterase Small (NEG) Urine RBC Tntc /HPF (0-2) Urine WBC 1-4 /HPF (0-4) Urine Squamous Epithelial Cells None /LPF Urine Bacteria 0 /HPF (0-FEW) Laboratory Tests Test 12/26/19 18:08 12/27/19 03:55 Urine Collection Type Unknown Urine Color Leeanne Urine Clarity Cloudy Urine pH 8.5 (<5.0-8.0) Urine Specific [place] 1.020 (1.000-1.030) Urine Protein >=300 mg/dL (NEG-TRACE) Urine Glucose (UA) Negative mg/dL (NEG) Urine Ketones (Stick) Negative mg/dL (NEG) Urine Blood Large (NEG) Urine Nitrite Negative (NEG) Urine Bilirubin Negative (NEG) Urine Urobilinogen Dipstick 1.0 mg/dL (0.2 mg/dL) Urine Leukocyte Esterase Small (NEG) Urine RBC Tntc /HPF (0-2) Urine WBC 1-4 /HPF (0-4) Urine Squamous Epithelial Cells None /LPF Urine Bacteria 0 /HPF (0-FEW) White Blood Count 14.5 x10^3/uL (4.0-11.0) Red Blood Count 4.34 x10^6/uL (4.30-5.70) Hemoglobin 13.6 g/dL (13.0-17.5) Hematocrit 41.3 % (39.0-53.0) Mean Corpuscular Volume 95 fL (79-100) Mean Corpuscular Hemoglobin 31 pg (25-35) Mean Corpuscular Hemoglobin Concent 33 g/dL (31-37) Red Cell Distribution Width 17.1 % (11.5-14.5) Platelet Count 206 x10^3/uL (140-400) Neutrophils (%) (Auto) 83 % (31-73) Lymphocytes (%) (Auto) 8 % (24-48) Monocytes (%) (Auto) 8 % (0-9) Eosinophils (%) (Auto) 2 % (0-3) Basophils (%) (Auto) 0 % (0-3) Neutrophils # (Auto) 12.0 x10^3/uL (1.8-7.7) Lymphocytes # (Auto) 1.2 x10^3/uL (1.0-4.8) Monocytes # (Auto) 1.1 x10^3/uL (0.0-1.1) Eosinophils # (Auto) 0.2 x10^3/uL (0.0-0.7) Basophils # (Auto) 0.0 x10^3/uL (0.0-0.2) Sodium Level 145 mmol/L (136-145) Potassium Level 3.8 mmol/L (3.5-5.1) Chloride Level 107 mmol/L (98-107) Carbon Dioxide Level 35 mmol/L (21-32) Anion Gap 3 (6-14) Blood Urea Nitrogen 24 mg/dL (8-26) Creatinine 1.1 mg/dL (0.7-1.3) Estimated GFR (Cockcroft-Gault) 63.6 Glucose Level 126 mg/dL (70-99) Calcium Level 8.9 mg/dL (8.5-10.1) Magnesium Level 2.1 mg/dL (1.8-2.4) Medications Active Scripts Medications Dose Route/Sig Max Daily Dose Days Date Category Acetaminophen 325 Mg Tablet 2 Tab PO PRN Q6HRS PRN 30 12/24/19 Reported Senna-Docusate Sodium Tablet (Sennosides/Docusate Sodium) 1 Each Tablet 1 Tab PO DAILY 20 12/24/19 Reported Ondansetron Odt (Ondansetron) 4 Mg Tab.rapdis 1 Tab PO PRN Q6-8HRS 12/24/19 Reported Mirtazapine 15 Mg Tab.rapdis 1 Tab PO QHS 30 12/24/19 Reported Cipro (Ciprofloxacin Hcl) 500 Mg Tablet 1 Tab PO BID 2 12/24/19 Reported Zoloft (Sertraline Hcl) 50 Mg Tablet 100 Mg PO DAILY 06/12/19 Reported Polyethylene Glycol 3350 2,500 Gm Powder 17 Gm PO DAILY PRN 06/12/19 Reported Finasteride 5 Mg Tablet 1 Tab PO DAILY 06/12/19 Reported Atorvastatin Calcium 40 Mg Tablet 1 Tab PO DAILY 06/12/19 Reported Albuterol Sulfate Conc Neb Soln (Albuterol Sulfate) 2.5 Mg/0.5 Ml Vial.neb 1 Vial NEB Q6HRS PRN 06/12/19 Reported Acetaminophen 325 Mg Tablet 2 Tab PO PRN Q6HRS PRN 30 06/12/19 Reported Potassium Chloride (Potassium Chloride) 10 Meq Capsule.er 10 Meq PO DAILY 10/03/16 Reported Namenda Xr (Memantine Hcl) 28 Mg Cap.spr.24 28 Mg PO DAILY 10/03/16 Reported Flomax (Tamsulosin Hcl) 0.4 Mg Cap.er.24h 0.4 Mg PO QHS 02/23/16 Rx Nitrostat (Nitroglycerin) 0.4 Mg Tab.subl 0.4 Mg SL PRN Q5MIN PRN 02/23/16 Rx Daily Vitamin (Multivitamin) 1 Each Tablet 1 Each PO DAILY 01/10/14 Reported Impression . 1, Acute on chronic respiratory failure secondary to acute systolic congestive heart failure, right pleural effusion, atelectasis.RLL caused by effusion 2. Abnormal chest x-ray, effusion/infiltrate/atelectasis. 3. Ischemic cardiomyopathy. 4. Acute systolic congestive heart failure. 5. Chronic obstructive pulmonary disease. 6. Alzheimer's. 7. Paroxysmal atrial fibrillation, now in sinus rhythm. Plan . PLAN AND RECOMMENDATIONS: 1. Titrate FiO2 to keep O2 saturation 92%. 2. bronchodilator. 3. I agree with Lasix IV. May need higher dose per Cardiology. 4. I reviewed the chest x-ray/ CT of the chest . He has moderate to large right pleural effusion with collapse of RLL. He will require thoracentesis. Of note, he is on Plavix.Needs to be on hold, possible procedure in am 5. ID is consulted. 6. d/w Pt. He agrees for thoracentesis. MICHAEL WHITTINGTON MD Dec 27, 2019 11:04
--- NOTE | 2019-12-27 12:23 | PDOC ---
[facility] [employer] 12/27/19 1223: CARDIO Progress Notes Date and Time Date of Service 12/27/19 Time of Evaluation 1210 Subjective Subjective: No Chest Pain, No Palpitations, Other (breathing improved. [place] uncomfortable. ) Vitals Vitals Vital Signs Date Time Temp Pulse Resp B/P (MAP) Pulse Ox O2 Delivery O2 Flow Rate FiO2 12/27/19 11:17 94 Room Air 2.0 12/27/19 08:22 53 119/59 12/27/19 07:00 97.9 18 97.9 Weight Weight [ ] Input and Output Intake and Output Intake and Output 12/27/19 07:00 Intake Total 630 ml Output Total 1400 ml Balance -770 ml Intake Oral 630 ml Output Urine Total 1400 ml # Bowel Movements 1 Laboratory Labs Laboratory Tests Test 12/26/19 18:08 12/27/19 03:55 Urine Collection Type Unknown Urine Color Leeanne Urine Clarity Cloudy Urine pH 8.5 (<5.0-8.0) Urine Specific [place] 1.020 (1.000-1.030) Urine Protein >=300 mg/dL (NEG-TRACE) Urine Glucose (UA) Negative mg/dL (NEG) Urine Ketones (Stick) Negative mg/dL (NEG) Urine Blood Large (NEG) Urine Nitrite Negative (NEG) Urine Bilirubin Negative (NEG) Urine Urobilinogen Dipstick 1.0 mg/dL (0.2 mg/dL) Urine Leukocyte Esterase Small (NEG) Urine RBC Tntc /HPF (0-2) Urine WBC 1-4 /HPF (0-4) Urine Squamous Epithelial Cells None /LPF Urine Bacteria 0 /HPF (0-FEW) White Blood Count 14.5 x10^3/uL (4.0-11.0) Red Blood Count 4.34 x10^6/uL (4.30-5.70) Hemoglobin 13.6 g/dL (13.0-17.5) Hematocrit 41.3 % (39.0-53.0) Mean Corpuscular Volume 95 fL (79-100) Mean Corpuscular Hemoglobin 31 pg (25-35) Mean Corpuscular Hemoglobin Concent 33 g/dL (31-37) Red Cell Distribution Width 17.1 % (11.5-14.5) Platelet Count 206 x10^3/uL (140-400) Neutrophils (%) (Auto) 83 % (31-73) Lymphocytes (%) (Auto) 8 % (24-48) Monocytes (%) (Auto) 8 % (0-9) Eosinophils (%) (Auto) 2 % (0-3) Basophils (%) (Auto) 0 % (0-3) Neutrophils # (Auto) 12.0 x10^3/uL (1.8-7.7) Lymphocytes # (Auto) 1.2 x10^3/uL (1.0-4.8) Monocytes # (Auto) 1.1 x10^3/uL (0.0-1.1) Eosinophils # (Auto) 0.2 x10^3/uL (0.0-0.7) Basophils # (Auto) 0.0 x10^3/uL (0.0-0.2) Sodium Level 145 mmol/L (136-145) Potassium Level 3.8 mmol/L (3.5-5.1) Chloride Level 107 mmol/L (98-107) Carbon Dioxide Level 35 mmol/L (21-32) Anion Gap 3 (6-14) Blood Urea Nitrogen 24 mg/dL (8-26) Creatinine 1.1 mg/dL (0.7-1.3) Estimated GFR (Cockcroft-Gault) 63.6 Glucose Level 126 mg/dL (70-99) Calcium Level 8.9 mg/dL (8.5-10.1) Magnesium Level 2.1 mg/dL (1.8-2.4) Microbiology Micro Microbiology 12/23/19 Blood Culture - Preliminary, Resulted NO GROWTH AFTER 3 DAYS Physical Exam HEENT: Neck Supple W Full Motion Chest: Symmetric LUNGS: Other (diminished bases) Heart: RRR (SR/SB) Abdomen: Soft N/T Extremities: No Edema Neurology: alert, follow commands, confused Assessment Assessment 1. Acute respiratory failure with acute on chronic systolic heart failure and pleural effusion 2. ICM; LVEF 30-35% 2. CAD; s/p PCI/stents to RCA, LAD 2015. Clinically stable 3. AFIB with RVR; new onset. H/o sinus bradycardia- BB discontinued in past. Now SR/SB 4. Hypertension; controlled 5. PVD s/p MAIL RIDER/stents; denies claudication symptoms 6. Hyperlipidemia; statin 7. Right-sided pleural effusion. Plavix on hold for possible thoracentesis 8. Dementia. Recommendations Ongoing diuresis Will use low-dose BB for rate control given Monitor for bradycardia Will arrange outpatient event monitor to r/o tachy/sharmila ASA therapy. Probably poor candidate for long-term OAC. Consider of TAYLOR closure device. Secondary prevention measures. Resume Plavix post thoracentesis Supportive care Justicifation of Admission Dx: Justifications for Admission: Justification of Admission Dx: Yes (CHF, EFFUSION ,HYPOXIA) JUAN R FUNES MD 12/27/19 2108: CARDIO Progress Notes Assessment Assessment Patient seen and examined. Agree with TEACHER LIP [employer]ING's assessment and plan. Continue diuresis for acute on chr systolic HF CAD clinically stable AF new onset presently in sinus sharmila Probably poor candidate for custodial AC - plan outpatient referral for LAAO procedure Agree with outpatient event monitor TEJ ZHU APRN Dec 27, 2019 12:23 JUAN R FUNES MD Dec 27, 2019 21:08
--- NOTE | 2019-12-27 13:38 | NUR ---
Pt was pulling on stovall cath. Blood noted in tubing. Pt asking for cath to be removed. Pt continues to pull on cath so cath was removed. Bleeding was minimal. Dr Head notified and received ok to leave stovall out.
[2019-12-27 15:00] VITALS: BP 108/53
[2019-12-27 19:22] VITALS: BP 119/59
[2019-12-27] MEDS: MIRTAZAPINE 7.5 MG TABLET. PO SCH (20:34)
[2019-12-27] MEDS: TAMSULOSIN 0.4 MG CAP.ER.24H. PO SCH (20:34)
[2019-12-27] MEDS: ATORVASTATIN CALCIUM 40 MG TABLET. PO SCH (20:34)
[2019-12-27 23:14] VITALS: BP 116/55
[2019-12-28] VITALS (8 sets, daily range): BP systolic 97–163; BP diastolic 59–70
[2019-12-28 05:06] LABS: BASO # 0.1 x10^3/uL (0.0-0.2); BASO % 1 % (0-3); EOS # 0.2 x10^3/uL (0.0-0.7); EOS % 2 % (0-3); HEMATOCRIT 38.9 % (39.0-53.0); HEMOGLOBIN 12.9 g/dL (13.0-17.5); LYMPH # 1.4 x10^3/uL (1.0-4.8); LYMPH % 13 % (24-48); MEAN CORPUSCULAR HEMOGLOBIN 31 pg (25-35); MEAN CORPUSCULAR HGB CONC 33 g/dL (31-37); MEAN CORPUSCULAR VOLUME 95 fL (79-100); MONO # 0.8 x10^3/uL (0.0-1.1); MONO % 8 % (0-9); NEUT # 8.2 x10^3/uL (1.8-7.7); NEUT % 77 % (31-73); PLATELET COUNT 189 x10^3/uL (140-400); RED BLOOD COUNT 4.11 x10^6/uL (4.30-5.70); WHITE BLOOD COUNT 10.6 x10^3/uL (4.0-11.0)
[2019-12-28 05:50] LABS: CALCIUM 8.8 mg/dL (8.5-10.1); MAGNESIUM 2.5 mg/dL (1.8-2.4); POTASSIUM 3.9 mmol/L (3.5-5.1)
[2019-12-28] MEDS: IPRATRPIUM/ALBUTEROL 0.5/2.5MG 3 ML NEBU. NEB SCH ×4 (07:48→19:43)
[2019-12-28] MEDS: ASPIRIN 325 MG TABLET PO SCH (08:00)
[2019-12-28 08:31] LABS: PROTHROMBIN TIME PATIENT 13.8 SEC (11.7-14.0)
[2019-12-28] MEDS: FINASTERIDE 5 MG TABLET. PO SCH (09:00)
[2019-12-28] MEDS: MULTIVITAMIN with MINERAL TABLET. PO SCH (09:00)
[2019-12-28] MEDS: SERTRALINE 50 MG TABLET. PO SCH (09:00)
[2019-12-28] MEDS: FUROSEMIDE 40 MG/4 ML VIAL. IVP SCH (09:00)
[2019-12-28] MEDS: METOPROLOL TART IMMED RELEASE 25 MG TABLET. PO SCH ×2 (09:00→20:27)
[2019-12-28] MEDS: SPIRONOLACTONE 25 MG TABLET PO SCH (09:00)
[2019-12-28] MEDS: MEMANTINE 10 MG TABLET. PO SCH ×2 (09:00→20:26)
[2019-12-28] MEDS: SENNOSIDES/DOCUSATE 8.6/50MG TABLET. PO SCH (09:00)
[2019-12-28] MEDS: LOSARTAN POTASSIUM 25 MG TABLET. PO SCH (09:00)
--- NOTE | 2019-12-28 10:23 | PDOC ---
PROGRESS NOTES Date of Service DATE: 12/28/19 TIME: 10:20 Subjective Subjective confused. pulled out his stovall and had hematuira and not replaced and hematuria resolved. lab reviewed. not short of breath supine in bed. Objective Objective Vital Signs Date Time Temp Pulse Resp B/P (MAP) Pulse Ox O2 Delivery O2 Flow Rate FiO2 12/28/19 07:55 87 Room Air 2.0 12/28/19 07:00 98.0 64 15 134/67 (89) 98.0 Intake and Output 12/28/19 07:00 Intake Total 540 ml Output Total 1650 ml Balance -1110 ml Intake Oral 540 ml Output Urine Total 1650 ml Physical Exam Abdomen: Soft Heart: Normal S1, Normal S2 Extremities: No edema General: Alert HEENT: Atraumatic Lungs: Other (decreased breath sounds) Neuro: Normal speech Psych/Mental Status: Mood NL, Other (confused) Skin: No rashes Assessment Assessment Problems1. Acute on chronic systolic congestive heart failure. 2. Ischemic cardiomyopathy. 3. Coronary artery disease with previous coronary angioplasty and stent. 4. Peripheral arterial disease. 5. Alzheimer's disease. 6. Right pleural effusion.with RLL collapse 7. Acute hypoxic respiratory failure. 8. Severe protein-calorie malnutrition. 9. Hyperlipidemia. hypokalemia resolved leukocytosis.better Medical Problems: (1) Atrial fibrillation with rapid ventricular response Status: Acute (2) CHF (congestive heart failure) Status: Acute (3) Pleural effusion, right Status: Acute Plan Plan of Care continue iv lasix thoracentesis today continue losartan and spironolactone Comment Review of Relevant I have reviewed the following items deloris (where applicable) has been applied. Labs Laboratory Tests Test 12/26/19 14:00 12/26/19 18:08 12/27/19 03:55 12/28/19 04:20 Coronavirus (PCR) Not detected (Not Detected) Urine Collection Type Unknown Urine Color Leeanne Urine Clarity Cloudy Urine pH 8.5 (<5.0-8.0) Urine Specific [place] 1.020 (1.000-1.030) Urine Protein >=300 mg/dL (NEG-TRACE) Urine Glucose (UA) Negative mg/dL (NEG) Urine Ketones (Stick) Negative mg/dL (NEG) Urine Blood Large (NEG) Urine Nitrite Negative (NEG) Urine Bilirubin Negative (NEG) Urine Urobilinogen Dipstick 1.0 mg/dL (0.2 mg/dL) Urine Leukocyte Esterase Small (NEG) Urine RBC Tntc /HPF (0-2) Urine WBC 1-4 /HPF (0-4) Urine Squamous Epithelial Cells None /LPF Urine Bacteria 0 /HPF (0-FEW) White Blood Count 14.5 x10^3/uL (4.0-11.0) 10.6 x10^3/uL (4.0-11.0) Red Blood Count 4.34 x10^6/uL (4.30-5.70) 4.11 x10^6/uL (4.30-5.70) Hemoglobin 13.6 g/dL (13.0-17.5) 12.9 g/dL (13.0-17.5) Hematocrit 41.3 % (39.0-53.0) 38.9 % (39.0-53.0) Mean Corpuscular Volume 95 fL (79-100) 95 fL (79-100) Mean Corpuscular Hemoglobin 31 pg (25-35) 31 pg (25-35) Mean Corpuscular Hemoglobin Concent 33 g/dL (31-37) 33 g/dL (31-37) Red Cell Distribution Width 17.1 % (11.5-14.5) 17.0 % (11.5-14.5) Platelet Count 206 x10^3/uL (140-400) 189 x10^3/uL (140-400) Neutrophils (%) (Auto) 83 % (31-73) 77 % (31-73) Lymphocytes (%) (Auto) 8 % (24-48) 13 % (24-48) Monocytes (%) (Auto) 8 % (0-9) 8 % (0-9) Eosinophils (%) (Auto) 2 % (0-3) 2 % (0-3) Basophils (%) (Auto) 0 % (0-3) 1 % (0-3) Neutrophils # (Auto) 12.0 x10^3/uL (1.8-7.7) 8.2 x10^3/uL (1.8-7.7) Lymphocytes # (Auto) 1.2 x10^3/uL (1.0-4.8) 1.4 x10^3/uL (1.0-4.8) Monocytes # (Auto) 1.1 x10^3/uL (0.0-1.1) 0.8 x10^3/uL (0.0-1.1) Eosinophils # (Auto) 0.2 x10^3/uL (0.0-0.7) 0.2 x10^3/uL (0.0-0.7) Basophils # (Auto) 0.0 x10^3/uL (0.0-0.2) 0.1 x10^3/uL (0.0-0.2) Sodium Level 145 mmol/L (136-145) 144 mmol/L (136-145) Potassium Level 3.8 mmol/L (3.5-5.1) 3.9 mmol/L (3.5-5.1) Chloride Level 107 mmol/L (98-107) 107 mmol/L (98-107) Carbon Dioxide Level 35 mmol/L (21-32) 34 mmol/L (21-32) Anion Gap 3 (6-14) 3 (6-14) Blood Urea Nitrogen 24 mg/dL (8-26) 25 mg/dL (8-26) Creatinine 1.1 mg/dL (0.7-1.3) 1.0 mg/dL (0.7-1.3) Estimated GFR (Cockcroft-Gault) 63.6 71.0 Glucose Level 126 mg/dL (70-99) 114 mg/dL (70-99) Calcium Level 8.9 mg/dL (8.5-10.1) 8.8 mg/dL (8.5-10.1) Magnesium Level 2.1 mg/dL (1.8-2.4) 2.5 mg/dL (1.8-2.4) Prothrombin Time 13.8 SEC (11.7-14.0) Prothromb Time International Ratio 1.1 (0.8-1.1) Laboratory Tests Test 12/28/19 04:20 White Blood Count 10.6 x10^3/uL (4.0-11.0) Red Blood Count 4.11 x10^6/uL (4.30-5.70) Hemoglobin 12.9 g/dL (13.0-17.5) Hematocrit 38.9 % (39.0-53.0) Mean Corpuscular Volume 95 fL (79-100) Mean Corpuscular Hemoglobin 31 pg (25-35) Mean Corpuscular Hemoglobin Concent 33 g/dL (31-37) Red Cell Distribution Width 17.0 % (11.5-14.5) Platelet Count 189 x10^3/uL (140-400) Neutrophils (%) (Auto) 77 % (31-73) Lymphocytes (%) (Auto) 13 % (24-48) Monocytes (%) (Auto) 8 % (0-9) Eosinophils (%) (Auto) 2 % (0-3) Basophils (%) (Auto) 1 % (0-3) Neutrophils # (Auto) 8.2 x10^3/uL (1.8-7.7) Lymphocytes # (Auto) 1.4 x10^3/uL (1.0-4.8) Monocytes # (Auto) 0.8 x10^3/uL (0.0-1.1) Eosinophils # (Auto) 0.2 x10^3/uL (0.0-0.7) Basophils # (Auto) 0.1 x10^3/uL (0.0-0.2) Prothrombin Time 13.8 SEC (11.7-14.0) Prothromb Time International Ratio 1.1 (0.8-1.1) Sodium Level 144 mmol/L (136-145) Potassium Level 3.9 mmol/L (3.5-5.1) Chloride Level 107 mmol/L (98-107) Carbon Dioxide Level 34 mmol/L (21-32) Anion Gap 3 (6-14) Blood Urea Nitrogen 25 mg/dL (8-26) Creatinine 1.0 mg/dL (0.7-1.3) Estimated GFR (Cockcroft-Gault) 71.0 Glucose Level 114 mg/dL (70-99) Calcium Level 8.8 mg/dL (8.5-10.1) Magnesium Level 2.5 mg/dL (1.8-2.4) Microbiology 12/26/19 Urine Culture - Final, Complete 12/23/19 Blood Culture - Preliminary, Resulted NO GROWTH AFTER 4 DAYS Medications Current Medications Piperacillin Sod/ Tazobactam Sod 3.375 gm/Sodium Chloride 50 ml @ 100 mls/hr 1X ONCE IV Last administered on 12/23/19at 23:25; Start 12/23/19 at 23:30; Stop 12/23/19 at 23:59; Status DC Levofloxacin/ Dextrose 150 ml @ 100 mls/hr 1X ONCE IV Last administered on 12/24/19at 00:12; Start 12/23/19 at 23:30; Stop 12/24/19 at 00:59; Status DC Furosemide (Lasix) 40 mg 1X ONCE IVP Last administered on 12/23/19at 23:31; Start 12/23/19 at 23:30; Stop 12/23/19 at 23:31; Status DC Aspirin (Aspirin Chewable) 324 mg 1X ONCE PO Last administered on 12/24/19at 01:22; Start 12/24/19 at 01:00; Stop 12/24/19 at 01:01; Status DC Ondansetron HCl (Zofran) 4 mg PRN Q8HRS PRN IV NAUSEA/VOMITING 1ST CHOICE; Start 12/24/19 at 00:45; Stop 12/25/19 at 00:44; Status DC Diltiazem HCl (Cardizem Iv Push) 10 mg 1X ONCE IVP ; Start 12/24/19 at 01:30; Stop 12/24/19 at 01:31; Status DC Diltiazem HCl 125 mg/Sodium Chloride 125 ml @ 5 mls/hr CONT PRN IV SEE I/O RECORD; Start 12/24/19 at 01:30; Stop 12/26/19 at 10:13; Status DC Info (FLU VACCINE SCREEN per RX) 1 each 1X ONCE MC ; Start 12/24/19 at 09:00; Stop 12/24/19 at 09:01; Status UNV Furosemide (Lasix) 40 mg 1X ONCE IVP Last administered on 12/24/19at 11:51; Start 12/24/19 at 11:30; Stop 12/24/19 at 11:31; Status DC Furosemide (Lasix) 40 mg DAILY IVP ; Start 12/25/19 at 09:00; Stop 12/25/19 at 10:50; Status DC Aspirin (Silke Aspirin) 81 mg DAILYWBKFT PO Last administered on 12/27/19at 08:00; Start 12/24/19 at 14:00 Clopidogrel Bisulfate (Plavix) 75 mg DAILYWBKFT PO Last administered on 12/26/19 08:33; Start 12/24/19 at 14:00; Stop 12/26/19 at 13:36; Status DC Spironolactone (Aldactone) 25 mg DAILY PO Last administered on 12/27/19 08:21; Start 12/25/19 at 09:00 Losartan Potassium (Cozaar) 25 mg DAILY PO Last administered on 12/27/19 08:22; Start 12/25/19 at 09:00 Sertraline HCl (Zoloft) 100 mg DAILY PO Last administered on 12/27/19 08:20; Start 12/25/19 at 09:00 Tamsulosin HCl (Flomax) 0.4 mg QHS PO Last administered on 12/27/19 20:34; Start 12/24/19 at 21:00 Finasteride (Proscar) 5 mg DAILY PO Last administered on 12/27/19 08:22; Start 12/25/19 at 09:00 Mirtazapine (Remeron) 7.5 mg QHS PO Last administered on 12/27/19 20:34; Start 12/24/19 at 21:00 Acetaminophen (Tylenol) 650 mg PRN Q6HRS PRN PO RECTAL PAIN; Start 12/24/19 at 13:15 Senna/Docusate Sodium (Senna Plus) 1 tab DAILY PO Last administered on 12/27/19 08:20; Start 12/25/19 at 09:00 Memantine (Namenda) 10 mg BID PO Last administered on 12/27/19 20:34; Start 12/24/19 at 21:00 Multivitamins (Thera M Plus) 1 tab DAILY PO Last administered on 12/27/19 08:22; Start 12/25/19 at 09:00 Atorvastatin Calcium (Lipitor) 40 mg QHS PO Last administered on 12/27/19 20:34; Start 12/24/19 at 21:00 Nitroglycerin (Nitrostat) 0.4 mg PRN Q5MIN PRN SL CHEST PAIN; Start 12/24/19 at 13:15 Magnesium Hydroxide (Milk Of Magnesia) 2,400 mg PRN DAILY PRN PO CONSTIPATION; Start 12/24/19 at 13:15 Albuterol/ Ipratropium (Duoneb) 3 ml RTQID NEB Last administered on 12/28/19at 07:48; Start 12/25/19 at 08:00 Diltiazem HCl (Cardizem 24hr Cd) 120 mg DAILY PO Last administered on 12/26/19at 08:38; Start 12/25/19 at 11:00; Stop 12/26/19 at 16:37; Status DC Furosemide (Lasix) 40 mg Q12HR IVP Last administered on 12/26/19at 08:40; Start 12/25/19 at 21:00; Stop 12/26/19 at 10:13; Status DC Furosemide (Lasix) 40 mg DAILY IVP Last administered on 12/27/19at 08:23; Start 12/27/19 at 09:00 Potassium Chloride (Klor-Con) 40 meq 1X ONCE PO Last administered on 12/26/19at 10:58; Start 12/26/19 at 10:15; Stop 12/26/19 at 10:17; Status DC Metoprolol Tartrate (Lopressor) 12.5 mg BID PO Last administered on 12/27/19at 20:34; Start 12/26/19 at 21:00 Active Scripts Active Flomax (Tamsulosin Hcl) 0.4 Mg Cap.er.24h 0.4 Mg PO QHS Nitrostat (Nitroglycerin) 0.4 Mg Tab.subl 0.4 Mg SL PRN Q5MIN PRN Reported Acetaminophen 325 Mg Tablet 2 Tab PO PRN Q6HRS PRN 30 Days Senna-Docusate Sodium Tablet (Sennosides/Docusate Sodium) 1 Each Tablet 1 Tab PO DAILY 20 Days Ondansetron Odt (Ondansetron) 4 Mg Tab.rapdis 1 Tab PO PRN Q6-8HRS Mirtazapine 15 Mg Tab.rapdis 1 Tab PO QHS 30 Days Cipro (Ciprofloxacin Hcl) 500 Mg Tablet 1 Tab PO BID 2 Days Zoloft (Sertraline Hcl) 50 Mg Tablet 100 Mg PO DAILY Polyethylene Glycol 3350 2,500 Gm Powder 17 Gm PO DAILY PRN Finasteride 5 Mg Tablet 1 Tab PO DAILY Atorvastatin Calcium 40 Mg Tablet 1 Tab PO DAILY Albuterol Sulfate Conc Neb Soln (Albuterol Sulfate) 2.5 Mg/0.5 Ml Vial.neb 1 Vi al NEB Q6HRS PRN Acetaminophen 325 Mg Tablet 2 Tab PO PRN Q6HRS PRN 30 Days Potassium Chloride (Potassium Chloride) 10 Meq Capsule.er 10 Meq PO DAILY Namenda Xr (Memantine Hcl) 28 Mg Cap.spr.24 28 Mg PO DAILY Daily Vitamin (Multivitamin) 1 Each Tablet 1 Each PO DAILY Vitals/I & O Vital Sign - Last 24 Hours 12/27/19 12/27/19 12/27/19 12/27/19 11:00 11:17 15:00 15:16 Temp 97.6 98.1 97.6 98.1 Pulse 66 50 Resp 20 18 B/P (MAP) 90/66 (74) 108/53 (71) Pulse Ox 94 94 90 91 O2 Delivery Room Air Room Air Nasal Cannula Room Air O2 Flow Rate 2.0 2.0 2.0 12/27/19 12/27/19 12/27/19 12/27/19 19:22 19:54 20:28 20:34 Temp 98.1 98.1 Pulse 68 68 Resp 18 B/P (MAP) 119/59 (79) 119/59 Pulse Ox 96 93 O2 Delivery Nasal Cannula Nasal Cannula Room Air O2 Flow Rate 2.0 2.0 2.0 12/27/19 12/28/19 12/28/19 12/28/19 23:14 03:28 07:00 07:55 Temp 98.2 98.2 98.0 98.2 98.2 98.0 Pulse 52 56 64 Resp 18 18 15 B/P (MAP) 116/55 (75) 117/59 (78) 134/67 (89) Pulse Ox 92 92 92 87 O2 Delivery Nasal Cannula Nasal Cannula Nasal Cannula Room Air O2 Flow Rate 2.0 2.0 2.0 2.0 Intake and Output 12/27/19 12/27/19 12/28/19 15:00 23:00 07:00 Intake Total 60 ml 480 ml Output Total 600 ml 300 ml 750 ml Balance -600 ml -240 ml -270 ml Justifications for Admission Other Justification YAQUELIN LUJAN MD Dec 28, 2019 10:23
--- NOTE | 2019-12-28 11:30 | PDOC ---
PULMONARY PROGRESS NOTES DATE: 12/28/19 TIME: 11:29 Subjective no soa Vitals Vital Signs Date Time Temp Pulse Resp B/P (MAP) Pulse Ox O2 Delivery O2 Flow Rate FiO2 12/28/19 11:06 93 Nasal Cannula 2.0 12/28/19 07:00 98.0 64 15 134/67 (89) 98.0 General: Alert, No acute distress Lungs: Other (decrease right base) Cardiovascular: S1 Abdomen: Soft Neuro Exam: Alert Extremities: No Edema Skin: Warm Labs Laboratory Tests Test 12/26/19 14:00 12/26/19 18:08 12/27/19 03:55 12/28/19 04:20 Coronavirus (PCR) Not detected (Not Detected) Urine Collection Type Unknown Urine Color Leeanne Urine Clarity Cloudy Urine pH 8.5 (<5.0-8.0) Urine Specific [place] 1.020 (1.000-1.030) Urine Protein >=300 mg/dL (NEG-TRACE) Urine Glucose (UA) Negative mg/dL (NEG) Urine Ketones (Stick) Negative mg/dL (NEG) Urine Blood Large (NEG) Urine Nitrite Negative (NEG) Urine Bilirubin Negative (NEG) Urine Urobilinogen Dipstick 1.0 mg/dL (0.2 mg/dL) Urine Leukocyte Esterase Small (NEG) Urine RBC Tntc /HPF (0-2) Urine WBC 1-4 /HPF (0-4) Urine Squamous Epithelial Cells None /LPF Urine Bacteria 0 /HPF (0-FEW) White Blood Count 14.5 x10^3/uL (4.0-11.0) 10.6 x10^3/uL (4.0-11.0) Red Blood Count 4.34 x10^6/uL (4.30-5.70) 4.11 x10^6/uL (4.30-5.70) Hemoglobin 13.6 g/dL (13.0-17.5) 12.9 g/dL (13.0-17.5) Hematocrit 41.3 % (39.0-53.0) 38.9 % (39.0-53.0) Mean Corpuscular Volume 95 fL (79-100) 95 fL (79-100) Mean Corpuscular Hemoglobin 31 pg (25-35) 31 pg (25-35) Mean Corpuscular Hemoglobin Concent 33 g/dL (31-37) 33 g/dL (31-37) Red Cell Distribution Width 17.1 % (11.5-14.5) 17.0 % (11.5-14.5) Platelet Count 206 x10^3/uL (140-400) 189 x10^3/uL (140-400) Neutrophils (%) (Auto) 83 % (31-73) 77 % (31-73) Lymphocytes (%) (Auto) 8 % (24-48) 13 % (24-48) Monocytes (%) (Auto) 8 % (0-9) 8 % (0-9) Eosinophils (%) (Auto) 2 % (0-3) 2 % (0-3) Basophils (%) (Auto) 0 % (0-3) 1 % (0-3) Neutrophils # (Auto) 12.0 x10^3/uL (1.8-7.7) 8.2 x10^3/uL (1.8-7.7) Lymphocytes # (Auto) 1.2 x10^3/uL (1.0-4.8) 1.4 x10^3/uL (1.0-4.8) Monocytes # (Auto) 1.1 x10^3/uL (0.0-1.1) 0.8 x10^3/uL (0.0-1.1) Eosinophils # (Auto) 0.2 x10^3/uL (0.0-0.7) 0.2 x10^3/uL (0.0-0.7) Basophils # (Auto) 0.0 x10^3/uL (0.0-0.2) 0.1 x10^3/uL (0.0-0.2) Sodium Level 145 mmol/L (136-145) 144 mmol/L (136-145) Potassium Level 3.8 mmol/L (3.5-5.1) 3.9 mmol/L (3.5-5.1) Chloride Level 107 mmol/L (98-107) 107 mmol/L (98-107) Carbon Dioxide Level 35 mmol/L (21-32) 34 mmol/L (21-32) Anion Gap 3 (6-14) 3 (6-14) Blood Urea Nitrogen 24 mg/dL (8-26) 25 mg/dL (8-26) Creatinine 1.1 mg/dL (0.7-1.3) 1.0 mg/dL (0.7-1.3) Estimated GFR (Cockcroft-Gault) 63.6 71.0 Glucose Level 126 mg/dL (70-99) 114 mg/dL (70-99) Calcium Level 8.9 mg/dL (8.5-10.1) 8.8 mg/dL (8.5-10.1) Magnesium Level 2.1 mg/dL (1.8-2.4) 2.5 mg/dL (1.8-2.4) Prothrombin Time 13.8 SEC (11.7-14.0) Prothromb Time International Ratio 1.1 (0.8-1.1) Laboratory Tests Test 12/28/19 04:20 White Blood Count 10.6 x10^3/uL (4.0-11.0) Red Blood Count 4.11 x10^6/uL (4.30-5.70) Hemoglobin 12.9 g/dL (13.0-17.5) Hematocrit 38.9 % (39.0-53.0) Mean Corpuscular Volume 95 fL (79-100) Mean Corpuscular Hemoglobin 31 pg (25-35) Mean Corpuscular Hemoglobin Concent 33 g/dL (31-37) Red Cell Distribution Width 17.0 % (11.5-14.5) Platelet Count 189 x10^3/uL (140-400) Neutrophils (%) (Auto) 77 % (31-73) Lymphocytes (%) (Auto) 13 % (24-48) Monocytes (%) (Auto) 8 % (0-9) Eosinophils (%) (Auto) 2 % (0-3) Basophils (%) (Auto) 1 % (0-3) Neutrophils # (Auto) 8.2 x10^3/uL (1.8-7.7) Lymphocytes # (Auto) 1.4 x10^3/uL (1.0-4.8) Monocytes # (Auto) 0.8 x10^3/uL (0.0-1.1) Eosinophils # (Auto) 0.2 x10^3/uL (0.0-0.7) Basophils # (Auto) 0.1 x10^3/uL (0.0-0.2) Prothrombin Time 13.8 SEC (11.7-14.0) Prothromb Time International Ratio 1.1 (0.8-1.1) Sodium Level 144 mmol/L (136-145) Potassium Level 3.9 mmol/L (3.5-5.1) Chloride Level 107 mmol/L (98-107) Carbon Dioxide Level 34 mmol/L (21-32) Anion Gap 3 (6-14) Blood Urea Nitrogen 25 mg/dL (8-26) Creatinine 1.0 mg/dL (0.7-1.3) Estimated GFR (Cockcroft-Gault) 71.0 Glucose Level 114 mg/dL (70-99) Calcium Level 8.8 mg/dL (8.5-10.1) Magnesium Level 2.5 mg/dL (1.8-2.4) Medications Active Scripts Medications Dose Route/Sig Max Daily Dose Days Date Category Acetaminophen 325 Mg Tablet 2 Tab PO PRN Q6HRS PRN 30 12/24/19 Reported Senna-Docusate Sodium Tablet (Sennosides/Docusate Sodium) 1 Each Tablet 1 Tab PO DAILY 20 12/24/19 Reported Ondansetron Odt (Ondansetron) 4 Mg Tab.rapdis 1 Tab PO PRN Q6-8HRS 12/24/19 Reported Mirtazapine 15 Mg Tab.rapdis 1 Tab PO QHS 30 12/24/19 Reported Cipro (Ciprofloxacin Hcl) 500 Mg Tablet 1 Tab PO BID 2 12/24/19 Reported Zoloft (Sertraline Hcl) 50 Mg Tablet 100 Mg PO DAILY 06/12/19 Reported Polyethylene Glycol 3350 2,500 Gm Powder 17 Gm PO DAILY PRN 06/12/19 Reported Finasteride 5 Mg Tablet 1 Tab PO DAILY 06/12/19 Reported Atorvastatin Calcium 40 Mg Tablet 1 Tab PO DAILY 06/12/19 Reported Albuterol Sulfate Conc Neb Soln (Albuterol Sulfate) 2.5 Mg/0.5 Ml Vial.neb 1 Vial NEB Q6HRS PRN 06/12/19 Reported Acetaminophen 325 Mg Tablet 2 Tab PO PRN Q6HRS PRN 30 06/12/19 Reported Potassium Chloride (Potassium Chloride) 10 Meq Capsule.er 10 Meq PO DAILY 10/03/16 Reported Namenda Xr (Memantine Hcl) 28 Mg Cap.spr.24 28 Mg PO DAILY 10/03/16 Reported Flomax (Tamsulosin Hcl) 0.4 Mg Cap.er.24h 0.4 Mg PO QHS 02/23/16 Rx Nitrostat (Nitroglycerin) 0.4 Mg Tab.subl 0.4 Mg SL PRN Q5MIN PRN 02/23/16 Rx Daily Vitamin (Multivitamin) 1 Each Tablet 1 Each PO DAILY 01/10/14 Reported Impression . 1, Acute on chronic respiratory failure secondary to acute systolic congestive heart failure, right pleural effusion, atelectasis.RLL caused by effusion 2. Abnormal chest x-ray, effusion/infiltrate/atelectasis. 3. Ischemic cardiomyopathy. 4. Acute systolic congestive heart failure. 5. Chronic obstructive pulmonary disease. 6. Alzheimer's. 7. Paroxysmal atrial fibrillation, now in sinus rhythm. Plan . PLAN AND RECOMMENDATIONS: 1. Titrate FiO2 to keep O2 saturation 92%. 2. bronchodilator. 3. Lasix IV. 4. I reviewed the chest x-ray/ CT of the chest . He has moderate to large right pleural effusion with collapse of RLL. He will require thoracentesis. scheduled for today 5. ID is consulted. 6. d/w Pt. He agrees for thoracentesis. MICHAEL WHITTINGTON MD Dec 28, 2019 11:30
--- NOTE | 2019-12-28 12:11 | PDOC ---
TEJ ZHU [employer] ARCHITECT 12/28/19 1210: CARDIO Progress Notes Date and Time Date of Service 12/28/19 Time of Evaluation 1205 Subjective Subjective: No Chest Pain, No Palpitations, Other (breathing improved. ) Vitals Vitals Vital Signs Date Time Temp Pulse Resp B/P (MAP) Pulse Ox O2 Delivery O2 Flow Rate FiO2 12/28/19 11:06 93 Nasal Cannula 2.0 12/28/19 07:00 98.0 64 15 134/67 (89) 98.0 Weight Weight [ ] Input and Output Intake and Output Intake and Output 12/28/19 07:00 Intake Total 540 ml Output Total 1650 ml Balance -1110 ml Intake Oral 540 ml Output Urine Total 1650 ml Laboratory Labs Laboratory Tests Test 12/28/19 04:20 White Blood Count 10.6 x10^3/uL (4.0-11.0) Red Blood Count 4.11 x10^6/uL (4.30-5.70) Hemoglobin 12.9 g/dL (13.0-17.5) Hematocrit 38.9 % (39.0-53.0) Mean Corpuscular Volume 95 fL (79-100) Mean Corpuscular Hemoglobin 31 pg (25-35) Mean Corpuscular Hemoglobin Concent 33 g/dL (31-37) Red Cell Distribution Width 17.0 % (11.5-14.5) Platelet Count 189 x10^3/uL (140-400) Neutrophils (%) (Auto) 77 % (31-73) Lymphocytes (%) (Auto) 13 % (24-48) Monocytes (%) (Auto) 8 % (0-9) Eosinophils (%) (Auto) 2 % (0-3) Basophils (%) (Auto) 1 % (0-3) Neutrophils # (Auto) 8.2 x10^3/uL (1.8-7.7) Lymphocytes # (Auto) 1.4 x10^3/uL (1.0-4.8) Monocytes # (Auto) 0.8 x10^3/uL (0.0-1.1) Eosinophils # (Auto) 0.2 x10^3/uL (0.0-0.7) Basophils # (Auto) 0.1 x10^3/uL (0.0-0.2) Prothrombin Time 13.8 SEC (11.7-14.0) Prothromb Time International Ratio 1.1 (0.8-1.1) Sodium Level 144 mmol/L (136-145) Potassium Level 3.9 mmol/L (3.5-5.1) Chloride Level 107 mmol/L (98-107) Carbon Dioxide Level 34 mmol/L (21-32) Anion Gap 3 (6-14) Blood Urea Nitrogen 25 mg/dL (8-26) Creatinine 1.0 mg/dL (0.7-1.3) Estimated GFR (Cockcroft-Gault) 71.0 Glucose Level 114 mg/dL (70-99) Calcium Level 8.8 mg/dL (8.5-10.1) Magnesium Level 2.5 mg/dL (1.8-2.4) Microbiology Micro Microbiology 12/26/19 Urine Culture - Final, Complete 12/23/19 Blood Culture - Preliminary, Resulted NO GROWTH AFTER 4 DAYS Physical Exam HEENT: Neck Supple W Full Motion Chest: Symmetric LUNGS: Other (diminished bases) Heart: RRR (SR/SB) Abdomen: Soft N/T Extremities: No Edema Neurology: alert, follow commands, confused Assessment Assessment 1. Acute respiratory failure with acute on chronic systolic heart failure and pleural effusion 2. ICM; LVEF 30-35% 2. CAD; s/p PCI/stents to RCA, LAD 2015. Clinically stable 3. AFIB with RVR; new onset. Now SR/SB with PVC's. Few brief bursts of AFIB noted on tele 4. Hypertension; controlled 5. PVD s/p MAINTENANCE SERVICES DISPATCHER/stents; denies claudication symptoms 6. Hyperlipidemia; statin 7. Right-sided pleural effusion. thoracentesis today 8. Dementia. Recommendations Lasix therapy Continue low-dose BB for rate control Outpatient event monitor arranged to r/o tachy/sharmila ASA therapy. Probably poor candidate for long-term OAC. Consider of TAYLOR closure device. Secondary prevention measures. Resume Plavix post thoracentesis Supportive care Justicifation of Admission Dx: Justifications for Admission: Justification of Admission Dx: Yes (CHF, EFFUSION ,HYPOXIA) JUAN R FUNES MD 12/28/19 2002: CARDIO Progress Notes Assessment Assessment Patient seen and examined. Agree with DIRECTOR OF HUMAN RESOURCES's assessment and plan. Acute on chr systolic HF better compensated CAD clinically stable AF new onset presently in sinus sharmila Probably poor candidate for meterman AC - plan outpatient referral for LAAO procedure Agree with outpatient event monitor TEJ ZHU APRN Dec 28, 2019 12:10 JUAN R FUNES MD Dec 28, 2019 20:02
[2019-12-28] MEDS ORDERED: LIDOCAINE WITH 8.4% SOD BICARB 3 ML DISP.SYRIN. ONE (12:34)
[2019-12-28] MEDS ORDERED: LIDOCAINE WITH 8.4% SOD BICARB 3 ML DISP.SYRIN. INJ ONE (12:45)
--- NOTE | 2019-12-28 14:51 | RAD ---
Ultrasound-guided right-sided thoracentesis 12/28/2019 12:47 PM Indication: CT GUIDED RIGHT THORACENTESIS, PLAVIX ON HOLD, RIGHT PLERUAL EFFUSION Procedure: Informed consent was obtained. A timeout procedure was performed. Sonographic evaluation of the right chest was performed demonstrating moderate pleural effusion. The right posterior chest was prepped and draped in sterile fashion. 1% lidocaine without epinephrine was administered for local anesthesia. Real-time ultrasonographic guidance was used in passing a 5 [employer] catheter into the right pleural space. 1.5 L of serosanguineous pleural fluid was removed. Samples of fluid were sent to the lab for further evaluation per ordering physician request. The catheter was removed and pressure held to achieve hemostasis. A sterile dressing was applied. No immediate complications were identified. The patient tolerated the procedure well. Impression: Right sided ultrasound-guided thoracentesis
[2019-12-28] MEDS: TAMSULOSIN 0.4 MG CAP.ER.24H. PO SCH (20:26)
[2019-12-28] MEDS: ATORVASTATIN CALCIUM 40 MG TABLET. PO SCH (20:26)
[2019-12-28] MEDS: MIRTAZAPINE 7.5 MG TABLET. PO SCH (20:26)
[2019-12-29 02:47] VITALS: BP 111/58
[2019-12-29 07:18] VITALS: BP 131/58
[2019-12-29 07:26] LABS: CALCIUM 8.9 mg/dL (8.5-10.1); CREATININE 0.9 mg/dL (0.7-1.3); GFR 80.2; POTASSIUM 4.2 mmol/L (3.5-5.1)
[2019-12-29] MEDS: IPRATRPIUM/ALBUTEROL 0.5/2.5MG 3 ML NEBU. NEB SCH ×4 (07:45→20:31)
[2019-12-29] MEDS: MEMANTINE 10 MG TABLET. PO SCH ×2 (08:51→20:39)
[2019-12-29] MEDS: SERTRALINE 50 MG TABLET. PO SCH (08:51)
[2019-12-29] MEDS: ASPIRIN 325 MG TABLET PO SCH (08:51)
[2019-12-29] MEDS: MULTIVITAMIN with MINERAL TABLET. PO SCH (08:51)
[2019-12-29] MEDS: FINASTERIDE 5 MG TABLET. PO SCH (08:51)
[2019-12-29] MEDS: SENNOSIDES/DOCUSATE 8.6/50MG TABLET. PO SCH (08:51)
[2019-12-29] MEDS: LOSARTAN POTASSIUM 25 MG TABLET. PO SCH (08:53)
[2019-12-29] MEDS: FUROSEMIDE 40 MG/4 ML VIAL. IVP SCH (08:53)
[2019-12-29] MEDS: SPIRONOLACTONE 25 MG TABLET PO SCH (09:00)
[2019-12-29] MEDS: METOPROLOL TART IMMED RELEASE 25 MG TABLET. PO SCH (09:00)
[2019-12-29 10:40] VITALS: BP 94/52
--- NOTE | 2019-12-29 11:17 | PDOC ---
PROGRESS NOTES Date of Service DATE: 12/29/19 TIME: 11:13 Subjective Subjective confused. not short of breath. thoracentesis done yesterday. lab reviewed. bp low systolic bp in 80s and has intermittent sinus bradycardia Objective Objective Vital Signs Date Time Temp Pulse Resp B/P (MAP) Pulse Ox O2 Delivery O2 Flow Rate FiO2 12/29/19 10:40 97.5 56 20 94/52 (66) 92 Nasal Cannula 2.0 97.5 Intake and Output 12/29/19 07:00 Intake Total 50 ml Output Total 1500 ml Balance -1450 ml Intake Oral 50 ml Chest Tube Drainage Total 1500 ml # Voids 5 Physical Exam Abdomen: Soft Heart: Normal S1, Normal S2 Extremities: No edema General: Alert, Cooperative HEENT: Atraumatic Lungs: Clear to auscultation, Other (crackles right base) Neuro: Normal speech Psych/Mental Status: Mood NL, Other (confused) Skin: No rashes Assessment Assessment Problems1. Acute on chronic systolic congestive heart failure.better compensated 2. Ischemic cardiomyopathy. 3. Coronary artery disease with previous coronary angioplasty and stent. 4. Peripheral arterial disease. 5. Alzheimer's disease. 6. Right pleural effusion.with RLL collapse 7. Acute hypoxic respiratory failure. 8. Severe protein-calorie malnutrition. 9. Hyperlipidemia. hypokalemia resolved leukocytosis.resolved right thoracentesis 1.5 L 12/28/19 Medical Problems: (1) Atrial fibrillation with rapid ventricular response Status: Acute (2) CHF (congestive heart failure) Status: Acute (3) Pleural effusion, right Status: Acute Plan Plan of Care switch to oral lasix monitor HR and BP labs tomorrow switched to low dose metoprolol succinate continue losartan and spironlactone if bp allows Comment Review of Relevant I have reviewed the following items deloris (where applicable) has been applied. Labs Laboratory Tests Test 12/27/19 11:35 12/28/19 04:20 12/29/19 06:25 Coronavirus (PCR) Not detected (Not Detected) White Blood Count 10.6 x10^3/uL (4.0-11.0) Red Blood Count 4.11 x10^6/uL (4.30-5.70) Hemoglobin 12.9 g/dL (13.0-17.5) Hematocrit 38.9 % (39.0-53.0) Mean Corpuscular Volume 95 fL (79-100) Mean Corpuscular Hemoglobin 31 pg (25-35) Mean Corpuscular Hemoglobin Concent 33 g/dL (31-37) Red Cell Distribution Width 17.0 % (11.5-14.5) Platelet Count 189 x10^3/uL (140-400) Neutrophils (%) (Auto) 77 % (31-73) Lymphocytes (%) (Auto) 13 % (24-48) Monocytes (%) (Auto) 8 % (0-9) Eosinophils (%) (Auto) 2 % (0-3) Basophils (%) (Auto) 1 % (0-3) Neutrophils # (Auto) 8.2 x10^3/uL (1.8-7.7) Lymphocytes # (Auto) 1.4 x10^3/uL (1.0-4.8) Monocytes # (Auto) 0.8 x10^3/uL (0.0-1.1) Eosinophils # (Auto) 0.2 x10^3/uL (0.0-0.7) Basophils # (Auto) 0.1 x10^3/uL (0.0-0.2) Prothrombin Time 13.8 SEC (11.7-14.0) Prothromb Time International Ratio 1.1 (0.8-1.1) Sodium Level 144 mmol/L (136-145) 143 mmol/L (136-145) Potassium Level 3.9 mmol/L (3.5-5.1) 4.2 mmol/L (3.5-5.1) Chloride Level 107 mmol/L (98-107) 107 mmol/L (98-107) Carbon Dioxide Level 34 mmol/L (21-32) 31 mmol/L (21-32) Anion Gap 3 (6-14) 5 (6-14) Blood Urea Nitrogen 25 mg/dL (8-26) 25 mg/dL (8-26) Creatinine 1.0 mg/dL (0.7-1.3) 0.9 mg/dL (0.7-1.3) Estimated GFR (Cockcroft-Gault) 71.0 80.2 Glucose Level 114 mg/dL (70-99) 82 mg/dL (70-99) Calcium Level 8.8 mg/dL (8.5-10.1) 8.9 mg/dL (8.5-10.1) Magnesium Level 2.5 mg/dL (1.8-2.4) Laboratory Tests Test 12/29/19 06:25 Sodium Level 143 mmol/L (136-145) Potassium Level 4.2 mmol/L (3.5-5.1) Chloride Level 107 mmol/L (98-107) Carbon Dioxide Level 31 mmol/L (21-32) Anion Gap 5 (6-14) Blood Urea Nitrogen 25 mg/dL (8-26) Creatinine 0.9 mg/dL (0.7-1.3) Estimated GFR (Cockcroft-Gault) 80.2 Glucose Level 82 mg/dL (70-99) Calcium Level 8.9 mg/dL (8.5-10.1) Microbiology 12/28/19 Gram Stain - Final, Resulted 12/28/19 Aerobic and Anaerobic Culture - Preliminary, Resulted 12/26/19 Urine Culture - Final, Complete 12/23/19 Blood Culture - Final, Complete NO GROWTH AFTER 5 DAYS Medications Current Medications Piperacillin Sod/ Tazobactam Sod 3.375 gm/Sodium Chloride 50 ml @ 100 mls/hr 1X ONCE IV Last administered on 12/23/19at 23:25; Start 12/23/19 at 23:30; Stop 12/23/19 at 23:59; Status DC Levofloxacin/ Dextrose 150 ml @ 100 mls/hr 1X ONCE IV Last administered on 12/24/19at 00:12; Start 12/23/19 at 23:30; Stop 12/24/19 at 00:59; Status DC Furosemide (Lasix) 40 mg 1X ONCE IVP Last administered on 12/23/19at 23:31; Start 12/23/19 at 23:30; Stop 12/23/19 at 23:31; Status DC Aspirin (Aspirin Chewable) 324 mg 1X ONCE PO Last administered on 12/24/19at 01:22; Start 12/24/19 at 01:00; Stop 12/24/19 at 01:01; Status DC Ondansetron HCl (Zofran) 4 mg PRN Q8HRS PRN IV NAUSEA/VOMITING 1ST CHOICE; Start 12/24/19 at 00:45; Stop 12/25/19 at 00:44; Status DC Diltiazem HCl (Cardizem Iv Push) 10 mg 1X ONCE IVP ; Start 12/24/19 at 01:30; Stop 12/24/19 at 01:31; Status DC Diltiazem HCl 125 mg/Sodium Chloride 125 ml @ 5 mls/hr CONT PRN IV SEE I/O RECORD; Start 12/24/19 at 01:30; Stop 12/26/19 at 10:13; Status DC Info (FLU VACCINE SCREEN per RX) 1 each 1X ONCE MC ; Start 12/24/19 at 09:00; Stop 12/24/19 at 09:01; Status UNV Furosemide (Lasix) 40 mg 1X ONCE IVP Last administered on 12/24/19at 11:51; Start 12/24/19 at 11:30; Stop 12/24/19 at 11:31; Status DC Furosemide (Lasix) 40 mg DAILY IVP ; Start 12/25/19 at 09:00; Stop 12/25/19 at 10:50; Status DC Aspirin (Silke Aspirin) 81 mg DAILYWBKFT PO Last administered on 12/29/19at 08:51; Start 12/24/19 at 14:00 Clopidogrel Bisulfate (Plavix) 75 mg DAILYWBKFT PO Last administered on 12/26/19at 08:33; Start 12/24/19 at 14:00; Stop 12/26/19 at 13:36; Status DC Spironolactone (Aldactone) 25 mg DAILY PO Last administered on 12/27/19at 08:21; Start 12/25/19 at 09:00 Losartan Potassium (Cozaar) 25 mg DAILY PO Last administered on 12/29/19at 08:53; Start 12/25/19 at 09:00 Sertraline HCl (Zoloft) 100 mg DAILY PO Last administered on 12/29/19at 08:51; Start 12/25/19 at 09:00 Tamsulosin HCl (Flomax) 0.4 mg QHS PO Last administered on 12/28/19at 20:26; Start 12/24/19 at 21:00 Finasteride (Proscar) 5 mg DAILY PO Last administered on 12/29/19at 08:51; Start 12/25/19 at 09:00 Mirtazapine (Remeron) 7.5 mg QHS PO Last administered on 12/28/19at 20:26; Start 12/24/19 at 21:00 Acetaminophen (Tylenol) 650 mg PRN Q6HRS PRN PO RECTAL PAIN; Start 12/24/19 at 13:15 Senna/Docusate Sodium (Senna Plus) 1 tab DAILY PO Last administered on 12/29/19 08:51; Start 12/25/19 at 09:00 Memantine (Namenda) 10 mg BID PO Last administered on 12/29/19 08:51; Start 12/24/19 at 21:00 Multivitamins (Thera M Plus) 1 tab DAILY PO Last administered on 12/29/19 08:51; Start 12/25/19 at 09:00 Atorvastatin Calcium (Lipitor) 40 mg QHS PO Last administered on 12/28/19 20:26; Start 12/24/19 at 21:00 Nitroglycerin (Nitrostat) 0.4 mg PRN Q5MIN PRN SL CHEST PAIN; Start 12/24/19 at 13:15 Magnesium Hydroxide (Milk Of Magnesia) 2,400 mg PRN DAILY PRN PO CONSTIPATION; Start 12/24/19 at 13:15 Albuterol/ Ipratropium (Duoneb) 3 ml RTQID NEB Last administered on 12/29/19at 07:45; Start 12/25/19 at 08:00 Diltiazem HCl (Cardizem 24hr Cd) 120 mg DAILY PO Last administered on 12/26/19at 08:38; Start 12/25/19 at 11:00; Stop 12/26/19 at 16:37; Status DC Furosemide (Lasix) 40 mg Q12HR IVP Last administered on 12/26/19at 08:40; Start 12/25/19 at 21:00; Stop 12/26/19 at 10:13; Status DC Furosemide (Lasix) 40 mg DAILY IVP Last administered on 12/29/19at 08:53; Start 12/27/19 at 09:00 Potassium Chloride (Klor-Con) 40 meq 1X ONCE PO Last administered on 12/26/19at 10:58; Start 12/26/19 at 10:15; Stop 12/26/19 at 10:17; Status DC Metoprolol Tartrate (Lopressor) 12.5 mg BID PO Last administered on 12/28/19at 20:27; Start 12/26/19 at 21:00 Lidocaine HCl (Buffered Lidocaine 1%) 3 ml STK-MED ONCE .ROUTE ; Start 12/28/19 at 12:34; Stop 12/28/19 at 12:35; Status DC Lidocaine HCl (Buffered Lidocaine 1%) 6 ml 1X ONCE INJ Last administered on 12/28/19at 12:59; Start 12/28/19 at 12:45; Stop 12/28/19 at 12:46; Status DC Active Scripts Active Flomax (Tamsulosin Hcl) 0.4 Mg Cap.er.24h 0.4 Mg PO QHS Nitrostat (Nitroglycerin) 0.4 Mg Tab.subl 0.4 Mg SL PRN Q5MIN PRN Reported Acetaminophen 325 Mg Tablet 2 Tab PO PRN Q6HRS PRN 30 Days Senna-Docusate Sodium Tablet (Sennosides/Docusate Sodium) 1 Each Tablet 1 Tab PO DAILY 20 Days Ondansetron Odt (Ondansetron) 4 Mg Tab.rapdis 1 Tab PO PRN Q6-8HRS Mirtazapine 15 Mg Tab.rapdis 1 Tab PO QHS 30 Days Cipro (Ciprofloxacin Hcl) 500 Mg Tablet 1 Tab PO BID 2 Days Zoloft (Sertraline Hcl) 50 Mg Tablet 100 Mg PO DAILY Polyethylene Glycol 3350 2,500 Gm Powder 17 Gm PO DAILY PRN Finasteride 5 Mg Tablet 1 Tab PO DAILY Atorvastatin Calcium 40 Mg Tablet 1 Tab PO DAILY Albuterol Sulfate Conc Neb Soln (Albuterol Sulfate) 2.5 Mg/0.5 Ml Vial.neb 1 Vial NEB Q6HRS PRN Acetaminophen 325 Mg Tablet 2 Tab PO PRN Q6HRS PRN 30 Days Potassium Chloride (Potassium Chloride) 10 Meq Capsule.er 10 Meq PO DAILY Namenda Xr (Memantine Hcl) 28 Mg Cap.spr.24 28 Mg PO DAILY Daily Vitamin (Multivitamin) 1 Each Tablet 1 Each PO DAILY Vitals/I & O Vital Sign - Last 24 Hours 12/28/19 12/28/19 12/28/19 12/28/19 12:56 13:04 15:00 15:56 Temp 97.8 97.8 Pulse 61 59 84 Resp 21 21 18 B/P (MAP) 163/64 (97) 126/70 (88) 97/61 (73) Pulse Ox 97 97 93 96 O2 Delivery Nasal Cannula Nasal Cannula Nasal Cannula Nasal Cannula O2 Flow Rate 2.0 2.0 2.0 2.0 12/28/19 12/28/19 12/28/19 12/28/19 19:36 19:44 20:00 20:27 Temp 97.9 97.9 Pulse 74 74 Resp 18 B/P (MAP) 121/66 (84) 121/66 Pulse Ox 95 92 O2 Delivery Nasal Cannula Nasal Cannula Nasal Cannula O2 Flow Rate 2.0 2.0 2.0 12/28/19 12/29/19 12/29/19 12/29/19 22:27 02:47 07:18 07:42 Temp 98.1 98.1 97.8 98.1 98.1 97.8 Pulse 55 55 55 Resp 16 20 20 B/P (MAP) 123/60 (81) 111/58 (75) 131/58 (82) Pulse Ox 98 95 91 O2 Delivery Nasal Cannula Nasal Cannula Nasal Cannula Nasal Cannula O2 Flow Rate 2.0 2.0 2.0 2.0 12/29/19 12/29/19 12/29/19 08:53 09:00 10:40 Temp 97.5 97.5 Pulse 55 56 56 Resp 20 B/P (MAP) 131/58 94/52 94/52 (66) Pulse Ox 92 O2 Delivery Nasal Cannula O2 Flow Rate 2.0 Intake and Output 12/28/19 12/28/19 12/29/19 15:00 23:00 07:00 Intake Total 0 ml 50 ml Output Total 1500 ml Balance -1500 ml 50 ml Justifications for Admission Other Justification Nutrition Consultation Dietary Evaluation: Recommendations by RD: Dietary education by RD, Increase Calorie Intake, Protein supplementation Comments: Continue w/cardiac diet, honor food preferences, provide snacks as requested REC Ensure BID or more often pending pt preference Expected Outcomes/Goals: PO intake to meet >75% est needs Malnutrition Findings: Food and Nutrition Intake (Sev: <50% est energy req 5days Weight Status: Underweight YAQUELIN LUJAN MD Dec 29, 2019 11:17
--- NOTE | 2019-12-29 11:27 | PDOC ---
PULMONARY PROGRESS NOTES DATE: 12/29/19 TIME: 11:25 Subjective no soa Vitals Vital Signs Date Time Temp Pulse Resp B/P (MAP) Pulse Ox O2 Delivery O2 Flow Rate FiO2 12/29/19 10:40 97.5 56 20 94/52 (66) 92 Nasal Cannula 2.0 97.5 General: Alert, No acute distress Lungs: Other (decrease right base) Cardiovascular: S1 Abdomen: Soft Neuro Exam: Alert Extremities: No Edema Skin: Warm Labs Laboratory Tests Test 12/27/19 11:35 12/28/19 04:20 12/29/19 06:25 Coronavirus (PCR) Not detected (Not Detected) White Blood Count 10.6 x10^3/uL (4.0-11.0) Red Blood Count 4.11 x10^6/uL (4.30-5.70) Hemoglobin 12.9 g/dL (13.0-17.5) Hematocrit 38.9 % (39.0-53.0) Mean Corpuscular Volume 95 fL (79-100) Mean Corpuscular Hemoglobin 31 pg (25-35) Mean Corpuscular Hemoglobin Concent 33 g/dL (31-37) Red Cell Distribution Width 17.0 % (11.5-14.5) Platelet Count 189 x10^3/uL (140-400) Neutrophils (%) (Auto) 77 % (31-73) Lymphocytes (%) (Auto) 13 % (24-48) Monocytes (%) (Auto) 8 % (0-9) Eosinophils (%) (Auto) 2 % (0-3) Basophils (%) (Auto) 1 % (0-3) Neutrophils # (Auto) 8.2 x10^3/uL (1.8-7.7) Lymphocytes # (Auto) 1.4 x10^3/uL (1.0-4.8) Monocytes # (Auto) 0.8 x10^3/uL (0.0-1.1) Eosinophils # (Auto) 0.2 x10^3/uL (0.0-0.7) Basophils # (Auto) 0.1 x10^3/uL (0.0-0.2) Prothrombin Time 13.8 SEC (11.7-14.0) Prothromb Time International Ratio 1.1 (0.8-1.1) Sodium Level 144 mmol/L (136-145) 143 mmol/L (136-145) Potassium Level 3.9 mmol/L (3.5-5.1) 4.2 mmol/L (3.5-5.1) Chloride Level 107 mmol/L (98-107) 107 mmol/L (98-107) Carbon Dioxide Level 34 mmol/L (21-32) 31 mmol/L (21-32) Anion Gap 3 (6-14) 5 (6-14) Blood Urea Nitrogen 25 mg/dL (8-26) 25 mg/dL (8-26) Creatinine 1.0 mg/dL (0.7-1.3) 0.9 mg/dL (0.7-1.3) Estimated GFR (Cockcroft-Gault) 71.0 80.2 Glucose Level 114 mg/dL (70-99) 82 mg/dL (70-99) Calcium Level 8.8 mg/dL (8.5-10.1) 8.9 mg/dL (8.5-10.1) Magnesium Level 2.5 mg/dL (1.8-2.4) Laboratory Tests Test 12/29/19 06:25 Sodium Level 143 mmol/L (136-145) Potassium Level 4.2 mmol/L (3.5-5.1) Chloride Level 107 mmol/L (98-107) Carbon Dioxide Level 31 mmol/L (21-32) Anion Gap 5 (6-14) Blood Urea Nitrogen 25 mg/dL (8-26) Creatinine 0.9 mg/dL (0.7-1.3) Estimated GFR (Cockcroft-Gault) 80.2 Glucose Level 82 mg/dL (70-99) Calcium Level 8.9 mg/dL (8.5-10.1) Medications Active Scripts Medications Dose Route/Sig Max Daily Dose Days Date Category Acetaminophen 325 Mg Tablet 2 Tab PO PRN Q6HRS PRN 30 12/24/19 Reported Senna-Docusate Sodium Tablet (Sennosides/Docusate Sodium) 1 Each Tablet 1 Tab PO DAILY 20 12/24/19 Reported Ondansetron Odt (Ondansetron) 4 Mg Tab.rapdis 1 Tab PO PRN Q6-8HRS 12/24/19 Reported Mirtazapine 15 Mg Tab.rapdis 1 Tab PO QHS 30 12/24/19 Reported Cipro (Ciprofloxacin Hcl) 500 Mg Tablet 1 Tab PO BID 2 12/24/19 Reported Zoloft (Sertraline Hcl) 50 Mg Tablet 100 Mg PO DAILY 06/12/19 Reported Polyethylene Glycol 3350 2,500 Gm Powder 17 Gm PO DAILY PRN 06/12/19 Reported Finasteride 5 Mg Tablet 1 Tab PO DAILY 06/12/19 Reported Atorvastatin Calcium 40 Mg Tablet 1 Tab PO DAILY 06/12/19 Reported Albuterol Sulfate Conc Neb Soln (Albuterol Sulfate) 2.5 Mg/0.5 Ml Vial.neb 1 Vial NEB Q6HRS PRN 06/12/19 Reported Acetaminophen 325 Mg Tablet 2 Tab PO PRN Q6HRS PRN 30 06/12/19 Reported Potassium Chloride (Potassium Chloride) 10 Meq Capsule.er 10 Meq PO DAILY 10/03/16 Reported Namenda Xr (Memantine Hcl) 28 Mg Cap.spr.24 28 Mg PO DAILY 10/03/16 Reported Flomax (Tamsulosin Hcl) 0.4 Mg Cap.er.24h 0.4 Mg PO QHS 02/23/16 Rx Nitrostat (Nitroglycerin) 0.4 Mg Tab.subl 0.4 Mg SL PRN Q5MIN PRN 02/23/16 Rx Daily Vitamin (Multivitamin) 1 Each Tablet 1 Each PO DAILY 01/10/14 Reported Impression . 1, Acute on chronic respiratory failure secondary to acute systolic congestive heart failure, right pleural effusion, atelectasis.RLL caused by effusion 2. Abnormal chest x-ray, effusion/infiltrate/atelectasis. 3. Ischemic cardiomyopathy. 4. Acute systolic congestive heart failure. 5. Chronic obstructive pulmonary disease. 6. Alzheimer's. 7. Paroxysmal atrial fibrillation, now in sinus rhythm. Plan . PLAN AND RECOMMENDATIONS: 1. Titrate FiO2 to keep O2 saturation 92%. 2. bronchodilator. 3. Lasix IV. 4. I reviewed the chest x-ray/ CT of the chest . He has moderate to large right pleural effusion with collapse of RLL. s/p thoracentesis. 1.5 litres removed. 5. ID rec 6. d/w Pt. he can go to MICHAEL Chaves MD Dec 29, 2019 11:27
--- NOTE | 2019-12-29 12:49 | PDOC ---
TEJ ZHU TYRE FITTER 12/29/19 1249: CARDIO Progress Notes Date and Time Date of Service 12/29/19 Time of Evaluation 1240 Subjective Subjective: No Chest Pain, No Palpitations, Other Vitals Vitals Vital Signs Date Time Temp Pulse Resp B/P (MAP) Pulse Ox O2 Delivery O2 Flow Rate FiO2 12/29/19 10:40 97.5 56 20 94/52 (66) 92 Nasal Cannula 2.0 97.5 Weight Weight [ ] Input and Output Intake and Output Intake and Output 12/29/19 07:00 Intake Total 50 ml Output Total 1500 ml Balance -1450 ml Intake Oral 50 ml Chest Tube Drainage Total 1500 ml # Voids 5 Laboratory Labs Laboratory Tests Test 12/29/19 06:25 Sodium Level 143 mmol/L (136-145) Potassium Level 4.2 mmol/L (3.5-5.1) Chloride Level 107 mmol/L (98-107) Carbon Dioxide Level 31 mmol/L (21-32) Anion Gap 5 (6-14) Blood Urea Nitrogen 25 mg/dL (8-26) Creatinine 0.9 mg/dL (0.7-1.3) Estimated GFR (Cockcroft-Gault) 80.2 Glucose Level 82 mg/dL (70-99) Calcium Level 8.9 mg/dL (8.5-10.1) Microbiology Micro Microbiology 12/28/19 Gram Stain - Final, Resulted 12/28/19 Aerobic and Anaerobic Culture - Preliminary, Resulted 12/26/19 Urine Culture - Final, Complete 12/23/19 Blood Culture - Final, Complete NO GROWTH AFTER 5 DAYS Physical Exam HEENT: Neck Supple W Full Motion Chest: Symmetric LUNGS: Other (diminished bases) Heart: RRR (SR/SB) Abdomen: Soft N/T Extremities: No Edema Neurology: alert, follow commands, confused Assessment Assessment 1. Acute respiratory failure with acute on chronic systolic heart failure and pleural effusion 2. ICM; LVEF 30-35% 2. CAD; s/p PCI/stents to RCA, LAD 2015. Clinically stable 3. AFIB with RVR; new onset. Now SR/SB with PVC's. 4. Hypertension; controlled 5. PVD s/p KEYPUNCHER/stents; denies claudication symptoms 6. Hyperlipidemia; statin 7. Right-sided pleural effusion. s/p thoracentesis 8. Dementia. Recommendations Lasix therapy; convert to oral Continue low-dose BB for rate control Outpatient event monitor arranged to r/o tachy/sharmila ASA therapy. Probably poor candidate for long-term OAC. Consider of TAYLOR closure device. Secondary prevention measures. Resume Plavix upon discharge. Okay to discharge to SNU from CV standpoint F/u in our office with Dr. Adam as scheduled. Justicifation of Admission Dx: Justifications for Admission: Justification of Admission Dx: Yes (CHF, EFFUSION ,HYPOXIA) JUAN R ADAM MD 12/30/19 0718: CARDIO Progress Notes Assessment Assessment Patient seen and examined 12/29/19. Agree with [employer] LEADER's assessment and plan. Acute on chr systolic HF better compensated CAD clinically stable AF new onset presently in sinus sharmila Probably poor candidate for usp AC - plan outpatient referral for LAAO procedure Agree with outpatient event monitor Follow up with our office as scheduled TEJ ZHU APRN Dec 29, 2019 12:49 JUAN R ADAM MD Dec 30, 2019 07:18
--- NOTE | 2019-12-29 14:07 | PATHOLOGY ---
Note [facility] Accession Number: [id number] TESTS RESULT FLAG UNITS REF RANGE LAB Clinician Provided Cytology Information No. of containers..01 Other (Miscellaneous) Source: RIGHT PLEURAL FLUID DIAGNOSIS: 02 RIGHT PLEURAL FLUID NEGATIVE FOR MALIGNANT CELLS. REACTIVE MESOTHELIAL CELLS PRESENT WITHIN A BACKGROUND OF LYMPHOCYTES AND FEW NEUTROPHILS. THIS INTERPRETATION INCLUDES EVALUATION OF A CELL BLOCK. Signed out by: 02 Fili Villegas MD, Pathologist NPI- [id number] Performed by: Meera Haskins, Leather Whitener ([facility]) Gross description: 01 35ML, CLEAR YELLOW, 1 TP 1 CB /LCS 12/28/2019 1749 Local FLAG LEGEND: L-Low Normal,H-High Normal,LL-Alert Low,HH-Alert High <-Panic Low,>-Panic High,A-Abnormal,AA-Critical Abnormal Performed at: 01 [facility] [address] [place] [address] Willard Lemos MD, 02 [facility] [address] [place] [address] Fili Villegas MD, Specimen Comment: A courtesy copy of this report has been sent to [phone], [phone] Specimen Comment: [id number] Specimen Comment: Report sent to Specimen Comment: Report sent to / DR LUJAN Specimen Comment: A duplicate report has been generated due to demographic updates. Performed at: 01 [facility] [address], [place], [place] [id number] MD Willard Lemos MD Phone: [phone]
[2019-12-29 14:35] VITALS: BP 107/37
[2019-12-29 19:01] VITALS: BP_SYST 118; BP_SYST 132; BP_DIAS 50; BP_DIAS 54
[2019-12-29] MEDS: TAMSULOSIN 0.4 MG CAP.ER.24H. PO SCH (20:39)
[2019-12-29] MEDS: MIRTAZAPINE 7.5 MG TABLET. PO SCH (20:39)
[2019-12-29] MEDS: ATORVASTATIN CALCIUM 40 MG TABLET. PO SCH (20:39)
[2019-12-29 23:26] VITALS: BP 126/60
[2019-12-30 02:07] VITALS: BP 146/62
[2019-12-30 07:30] VITALS: BP 148/63
[2019-12-30] MEDS: IPRATRPIUM/ALBUTEROL 0.5/2.5MG 3 ML NEBU. NEB SCH ×2 (07:30→11:53)
[2019-12-30] MEDS: SENNOSIDES/DOCUSATE 8.6/50MG TABLET. PO SCH (09:00)
[2019-12-30] MEDS ORDERED: METOPROLOL SUCC 24HR ER 25 MG TAB.ER.24H. PO SCH (09:00)
[2019-12-30] MEDS ORDERED: FUROSEMIDE 40 MG TABLET. PO SCH (09:00)
[2019-12-30 09:28] LABS: BASO # 0.1 x10^3/uL (0.0-0.2); BASO % 1 % (0-3); EOS # 0.6 x10^3/uL (0.0-0.7); EOS % 6 % (0-3); HEMATOCRIT 41.8 % (39.0-53.0); HEMOGLOBIN 13.9 g/dL (13.0-17.5); LYMPH # 1.1 x10^3/uL (1.0-4.8); LYMPH % 10 % (24-48); MEAN CORPUSCULAR HEMOGLOBIN 31 pg (25-35); MEAN CORPUSCULAR HGB CONC 33 g/dL (31-37); MEAN CORPUSCULAR VOLUME 95 fL (79-100); MONO # 0.6 x10^3/uL (0.0-1.1); MONO % 6 % (0-9); NEUT # 7.8 x10^3/uL (1.8-7.7); NEUT % 77 % (31-73); PLATELET COUNT 198 x10^3/uL (140-400); RED BLOOD COUNT 4.42 x10^6/uL (4.30-5.70); RED CELL DISTRIBUTION WIDTH 16.5 % (11.5-14.5); WHITE BLOOD COUNT 10.2 x10^3/uL (4.0-11.0)
[2019-12-30 09:39] LABS: CALCIUM 8.7 mg/dL (8.5-10.1); CREATININE 1.1 mg/dL (0.7-1.3); GFR 63.6; POTASSIUM 3.6 mmol/L (3.5-5.1)
[2019-12-30] MEDS: LOSARTAN POTASSIUM 25 MG TABLET. PO SCH (09:43)
[2019-12-30] MEDS: MULTIVITAMIN with MINERAL TABLET. PO SCH (09:44)
[2019-12-30] MEDS: SPIRONOLACTONE 25 MG TABLET PO SCH (09:44)
[2019-12-30] MEDS: ASPIRIN 325 MG TABLET PO SCH (09:45)
[2019-12-30] MEDS: FINASTERIDE 5 MG TABLET. PO SCH (09:45)
[2019-12-30] MEDS: MEMANTINE 10 MG TABLET. PO SCH (09:47)
[2019-12-30] MEDS: SERTRALINE 50 MG TABLET. PO SCH (09:51)
[2019-12-30] MEDS ORDERED: ASPI325T8 PO (10:21)
[2019-12-30] MEDS ORDERED: LOSA25TA54 PO (10:21)
[2019-12-30] MEDS ORDERED: CLOP75TA PO (10:21)
[2019-12-30] MEDS ORDERED: POTA10TA12 PO (10:21)
[2019-12-30] MEDS ORDERED: SPIR25TA PO (10:21)
--- NOTE | 2019-12-30 10:23 | SNU/HH DC ---
DISCHARGE ORDERS DISCHARGE INFORMATION: DISCHARGE DATE: Dec 30, 2019 FINAL DIAGNOSIS Problems Medical Problems: (1) Atrial fibrillation with rapid ventricular response Status: Acute (2) CHF (congestive heart failure) Status: Acute (3) Pleural effusion, right Status: Acute CONDITION ON DISCHARGE: Stable CODE STATUS: Code Status: DNR/DNI POST DISCHARGE ORDERS: ACTIVITY ORDERS: No restrictions, Activity as tolerated WEIGHT BEARING STATUS: No restrictions, As tolerated DIET AFTER DISCHARGE: Cardiac CHECKS AFTER DISCHARGE: CHECKS AFTER DISCHARGE: Check blood press - daily FOLLOW-UP: PHYSICIAN FOLLOW-UP: doctor at retirement LAB ORDERS FOR FOLLOW-UP: bmp every thursday for 3 weeks TREATMENT/EQUIPMENT ORDERS: ADAPTIVE EQUIPMENT NEEDED: None DISCHARGE MEDICATIONS: Home Meds Active Scripts Clopidogrel Bisulfate (CLOPIDOGREL) 75 Mg Tablet, 1 TAB PO DAILY for CAD, #30 TAB 1 Refill Prov:YAQUELIN LUJAN MD 12/30/19 Aspirin (ASPIRIN) 325 Mg Tablet, 81 MG PO DAILYWBKFT for CAD, #30 TAB Prov:YAQUELIN LUJAN MD 12/30/19 Spironolactone (ALDACTONE) 25 Mg Tablet, 12.5 MG PO DAILY for chf, #15 TAB Prov:YAQUELIN LUJAN MD 12/30/19 Losartan Potassium (LOSARTAN POTASSIUM ) 25 Mg Tablet, 12.5 MG PO DAILY for cardiomyopathy, #15 TAB Prov:YAQUELIN LUJAN MD 12/30/19 Potassium Chloride (POTASSIUM CHLORIDE ) 10 Meq Capsule.er, 20 MEQ PO DAILY for potassiuim suplement, #30 TAB.SR Prov:YAQUELIN LUJAN MD 12/30/19 Tamsulosin Hcl (FLOMAX) 0.4 Mg Cap.er.24h, 0.4 MG PO QHS, #30 MG Prov:YAQUELIN LUJAN MD 02/23/16 Nitroglycerin (NITROSTAT) 0.4 Mg Tab.subl, 0.4 MG SL PRN Q5MIN PRN for CHEST PAIN, #20 MG Prov:YAQUELIN LUJAN MD 02/23/16 Reported Medications Acetaminophen (ACETAMINOPHEN) 325 Mg Tablet, 2 TAB PO PRN Q6HRS PRN for pain or fever for 30 Days, #30 TAB 0 Refills 12/24/19 Sennosides/Docusate Sodium (Senna-Docusate Sodium Tablet) 1 Each Tablet, 1 TAB PO DAILY for constipation for 20 Days, #20 TAB 0 Refills 12/24/19 Mirtazapine (MIRTAZAPINE) 15 Mg Tab.rapdis, 1 TAB PO QHS for depression for 30 Days, #30 TAB 0 Refills 12/24/19 Sertraline Hcl (ZOLOFT) 50 Mg Tablet, 100 MG PO DAILY for depression , #30 TAB 2 Refills 06/12/19 Polyethylene Glycol 3350 (POLYETHYLENE GLYCOL 3350) 2,500 Gm Powder, 17 GM PO DAILY PRN for SEE COMMENTS, #255 GM 0 Refills 06/12/19 Finasteride (FINASTERIDE) 5 Mg Tablet, 1 TAB PO DAILY for BPH, #30 TAB 11 Refills 06/12/19 Atorvastatin Calcium (ATORVASTATIN CALCIUM) 40 Mg Tablet, 1 TAB PO DAILY for cholesterol lowering agent , #30 TAB 5 Refills 06/12/19 Albuterol Sulfate (ALBUTEROL SULFATE CONC NEB SOLN) 2.5 Mg/0.5 Ml Vial.neb, 1 VIAL NEB Q6HRS PRN for SHORTNESS OF BREATH, #120 VIAL 5 Refills 06/12/19 Memantine Hcl (NAMENDA XR) 28 Mg Cap.spr.24, 28 MG PO DAILY, TAB.SR 10/03/16 Multivitamin (DAILY VITAMIN) 1 Each Tablet, 1 EACH PO DAILY 01/10/14 Discontinued Reported Medications Ondansetron (ONDANSETRON ODT) 4 Mg Tab.rapdis, 1 TAB PO PRN Q6-8HRS for nausea, #16 TAB 12/24/19 Ciprofloxacin Hcl (CIPRO) 500 Mg Tablet, 1 TAB PO BID for infection for 2 Days, #4 TAB 0 Refills 12/24/19 Acetaminophen (ACETAMINOPHEN) 325 Mg Tablet, 2 TAB PO PRN Q6HRS PRN for pain or fever for 30 Days, #30 TAB 0 Refills 06/12/19 YAQUELIN LUJAN MD Dec 30, 2019 10:23
[2019-12-30] MEDS ORDERED: MIRT7.5T8 PO (10:26)
[2019-12-30 10:27] VITALS: BP 89/46
--- NOTE | 2019-12-30 10:34 | PDOC ---
Provider Note Date of Service: DATE: 12/30/19 TIME: 10:34 Provider Note discharge summary dictated # [id number] Justifications for Admission Other Justification YAQUELIN LUJAN MD Dec 30, 2019 10:34
[2019-12-30 10:36] VITALS: BP 110/53
[2019-12-30] MEDS ORDERED: METO-239 PO (10:37)
--- NOTE | 2019-12-30 10:40 | PDOC ---
PROGRESS NOTES Date of Service DATE: 12/30/19 TIME: 10:35 Subjective Subjective not short of breath. laying flat in bed. heart rate 56. lab reviewed Objective Objective Vital Signs Date Time Temp Pulse Resp B/P (MAP) Pulse Ox O2 Delivery O2 Flow Rate FiO2 12/30/19 09:44 56 148/63 12/30/19 07:31 93 Nasal Cannula 2.0 12/30/19 07:30 97.9 20 97.9 Intake and Output 12/30/19 07:00 Intake Total 600 ml Output Total 730 ml Balance -130 ml Intake Oral 600 ml Output Urine Total 730 ml # Voids 2 # Bowel Movements 3 Physical Exam Abdomen: Soft Heart: Normal S1, Normal S2 Extremities: No edema General: Alert, Other (confused) HEENT: Atraumatic Lungs: Clear to auscultation Neuro: Normal speech Psych/Mental Status: Mood NL, Other (confused) Skin: No rashes Assessment Assessment Problems1. Acute on chronic systolic congestive heart failure.better compensated 2. Ischemic cardiomyopathy. 3. Coronary artery disease with previous coronary angioplasty and stent. 4. Peripheral arterial disease. 5. Alzheimer's disease. 6. Right pleural effusion.with RLL collapse 7. Acute hypoxic respiratory failure. 8. Severe protein-calorie malnutrition. 9. Hyperlipidemia. hypokalemia resolved leukocytosis.resolved right thoracentesis 1.5 L 12/28/19 Medical Problems: (1) Atrial fibrillation with rapid ventricular response Status: Acute (2) CHF (congestive heart failure) Status: Acute (3) Pleural effusion, right Status: Acute Plan Plan of Care decrease furosemide and losartan and spironolactone. bun 30. increase kcl continue metoprolol with parameters dismiss today Comment Review of Relevant I have reviewed the following items deloris (where applicable) has been applied. Labs Laboratory Tests Test 12/28/19 13:00 12/29/19 06:25 12/30/19 09:10 Body Fluid Total Protein 1.6 g/dL (.) Body Fluid Lactate Dehydrogenase 67 IU/L (.) Sodium Level 143 mmol/L (136-145) 144 mmol/L (136-145) Potassium Level 4.2 mmol/L (3.5-5.1) 3.6 mmol/L (3.5-5.1) Chloride Level 107 mmol/L (98-107) 106 mmol/L (98-107) Carbon Dioxide Level 31 mmol/L (21-32) 35 mmol/L (21-32) Anion Gap 5 (6-14) 3 (6-14) Blood Urea Nitrogen 25 mg/dL (8-26) 30 mg/dL (8-26) Creatinine 0.9 mg/dL (0.7-1.3) 1.1 mg/dL (0.7-1.3) Estimated GFR (Cockcroft-Gault) 80.2 63.6 Glucose Level 82 mg/dL (70-99) 147 mg/dL (70-99) Calcium Level 8.9 mg/dL (8.5-10.1) 8.7 mg/dL (8.5-10.1) White Blood Count 10.2 x10^3/uL (4.0-11.0) Red Blood Count 4.42 x10^6/uL (4.30-5.70) Hemoglobin 13.9 g/dL (13.0-17.5) Hematocrit 41.8 % (39.0-53.0) Mean Corpuscular Volume 95 fL (79-100) Mean Corpuscular Hemoglobin 31 pg (25-35) Mean Corpuscular Hemoglobin Concent 33 g/dL (31-37) Red Cell Distribution Width 16.5 % (11.5-14.5) Platelet Count 198 x10^3/uL (140-400) Neutrophils (%) (Auto) 77 % (31-73) Lymphocytes (%) (Auto) 10 % (24-48) Monocytes (%) (Auto) 6 % (0-9) Eosinophils (%) (Auto) 6 % (0-3) Basophils (%) (Auto) 1 % (0-3) Neutrophils # (Auto) 7.8 x10^3/uL (1.8-7.7) Lymphocytes # (Auto) 1.1 x10^3/uL (1.0-4.8) Monocytes # (Auto) 0.6 x10^3/uL (0.0-1.1) Eosinophils # (Auto) 0.6 x10^3/uL (0.0-0.7) Basophils # (Auto) 0.1 x10^3/uL (0.0-0.2) Laboratory Tests Test 9/18/20 09:10 White Blood Count 10.2 x10^3/uL (4.0-11.0) Red Blood Count 4.42 x10^6/uL (4.30-5.70) Hemoglobin 13.9 g/dL (13.0-17.5) Hematocrit 41.8 % (39.0-53.0) Mean Corpuscular Volume 95 fL (79-100) Mean Corpuscular Hemoglobin 31 pg (25-35) Mean Corpuscular Hemoglobin Concent 33 g/dL (31-37) Red Cell Distribution Width 16.5 % (11.5-14.5) Platelet Count 198 x10^3/uL (140-400) Neutrophils (%) (Auto) 77 % (31-73) Lymphocytes (%) (Auto) 10 % (24-48) Monocytes (%) (Auto) 6 % (0-9) Eosinophils (%) (Auto) 6 % (0-3) Basophils (%) (Auto) 1 % (0-3) Neutrophils # (Auto) 7.8 x10^3/uL (1.8-7.7) Lymphocytes # (Auto) 1.1 x10^3/uL (1.0-4.8) Monocytes # (Auto) 0.6 x10^3/uL (0.0-1.1) Eosinophils # (Auto) 0.6 x10^3/uL (0.0-0.7) Basophils # (Auto) 0.1 x10^3/uL (0.0-0.2) Sodium Level 144 mmol/L (136-145) Potassium Level 3.6 mmol/L (3.5-5.1) Chloride Level 106 mmol/L (98-107) Carbon Dioxide Level 35 mmol/L (21-32) Anion Gap 3 (6-14) Blood Urea Nitrogen 30 mg/dL (8-26) Creatinine 1.1 mg/dL (0.7-1.3) Estimated GFR (Cockcroft-Gault) 63.6 Glucose Level 147 mg/dL (70-99) Calcium Level 8.7 mg/dL (8.5-10.1) Microbiology 12/28/19 Gram Stain - Final, Resulted 12/28/19 Aerobic and Anaerobic Culture - Preliminary, Resulted 12/26/19 Urine Culture - Final, Complete 12/23/19 Blood Culture - Final, Complete NO GROWTH AFTER 5 DAYS Medications Current Medications Piperacillin Sod/ Tazobactam Sod 3.375 gm/Sodium Chloride 50 ml @ 100 mls/hr 1X ONCE IV Last administered on 12/23/19at 23:25; Start 12/23/19 at 23:30; Stop 12/23/19 at 23:59; Status DC Levofloxacin/ Dextrose 150 ml @ 100 mls/hr 1X ONCE IV Last administered on 12/24/19at 00:12; Start 12/23/19 at 23:30; Stop 12/24/19 at 00:59; Status DC Furosemide (Lasix) 40 mg 1X ONCE IVP Last administered on 12/23/19at 23:31; Start 12/23/19 at 23:30; Stop 12/23/19 at 23:31; Status DC Aspirin (Aspirin Chewable) 324 mg 1X ONCE PO Last administered on 12/24/19at 01:22; Start 12/24/19 at 01:00; Stop 12/24/19 at 01:01; Status DC Ondansetron HCl (Zofran) 4 mg PRN Q8HRS PRN IV NAUSEA/VOMITING 1ST CHOICE; Start 12/24/19 at 00:45; Stop 12/25/19 at 00:44; Status DC Diltiazem HCl (Cardizem Iv Push) 10 mg 1X ONCE IVP ; Start 12/24/19 at 01:30; Stop 12/24/19 at 01:31; Status DC Diltiazem HCl 125 mg/Sodium Chloride 125 ml @ 5 mls/hr CONT PRN IV SEE I/O RECORD; Start 12/24/19 at 01:30; Stop 12/26/19 at 10:13; Status DC Info (FLU VACCINE SCREEN per RX) 1 each 1X ONCE MC ; Start 12/24/19 at 09:00; Stop 12/24/19 at 09:01; Status UNV Furosemide (Lasix) 40 mg 1X ONCE IVP Last administered on 12/24/19at 11:51; Start 12/24/19 at 11:30; Stop 12/24/19 at 11:31; Status DC Furosemide (Lasix) 40 mg DAILY IVP ; Start 12/25/19 at 09:00; Stop 12/25/19 at 10:50; Status DC Aspirin (Silke Aspirin) 81 mg DAILYWBKFT PO Last administered on 12/30/19 09:45; Start 12/24/19 at 14:00 Clopidogrel Bisulfate (Plavix) 75 mg DAILYWBKFT PO Last administered on 12/26/19 08:33; Start 12/24/19 at 14:00; Stop 12/26/19 at 13:36; Status DC Spironolactone (Aldactone) 25 mg DAILY PO Last administered on 12/30/19 09:44; Start 12/25/19 at 09:00; Stop 12/30/19 at 10:26; Status DC Losartan Potassium (Cozaar) 25 mg DAILY PO Last administered on 12/30/19 09:43; Start 12/25/19 at 09:00; Stop 12/30/19 at 10:26; Status DC Sertraline HCl (Zoloft) 100 mg DAILY PO Last administered on 12/30/19 09:51; Start 12/25/19 at 09:00 Tamsulosin HCl (Flomax) 0.4 mg QHS PO Last administered on 12/29/19 20:39; Start 12/24/19 at 21:00 Finasteride (Proscar) 5 mg DAILY PO Last administered on 12/30/19 09:45; Start 12/25/19 at 09:00 Mirtazapine (Remeron) 7.5 mg QHS PO Last administered on 12/29/19 20:39; St art 12/24/19 at 21:00 Acetaminophen (Tylenol) 650 mg PRN Q6HRS PRN PO RECTAL PAIN; Start 12/24/19 at 13:15 Senna/Docusate Sodium (Senna Plus) 1 tab DAILY PO Last administered on 12/29/19 08:51; Start 12/25/19 at 09:00 Memantine (Namenda) 10 mg BID PO Last administered on 12/30/19 09:47; Start 12/24/19 at 21:00 Multivitamins (Thera M Plus) 1 tab DAILY PO Last administered on 12/30/19 09:44; Start 12/25/19 at 09:00 Atorvastatin Calcium (Lipitor) 40 mg QHS PO Last administered on 12/29/19 20:39; Start 9/12/20 at 21:00 Nitroglycerin (Nitrostat) 0.4 mg PRN Q5MIN PRN SL CHEST PAIN; Start 12/24/19 at 13:15 Magnesium Hydroxide (Milk Of Magnesia) 2,400 mg PRN DAILY PRN PO CONSTIPATION; Start 12/24/19 at 13:15 Albuterol/ Ipratropium (Duoneb) 3 ml RTQID NEB Last administered on 12/30/19at 07:30; Start 12/25/19 at 08:00 Diltiazem HCl (Cardizem 24hr Cd) 120 mg DAILY PO Last administered on 12/26/19at 08:38; Start 12/25/19 at 11:00; Stop 12/26/19 at 16:37; Status DC Furosemide (Lasix) 40 mg Q12HR IVP Last administered on 12/26/19at 08:40; Start 12/25/19 at 21:00; Stop 12/26/19 at 10:13; Status DC Furosemide (Lasix) 40 mg DAILY IVP Last administered on 12/29/19at 08:53; Start 12/27/19 at 09:00; Stop 12/29/19 at 11:12; Status DC Potassium Chloride (Klor-Con) 40 meq 1X ONCE PO Last administered on 12/26/19at 10:58; Start 12/26/19 at 10:15; Stop 12/26/19 at 10:17; Status DC Metoprolol Tartrate (Lopressor) 12.5 mg BID PO Last administered on 12/28/19at 20:27; Start 12/26/19 at 21:00; Stop 12/29/19 at 11:12; Status DC Lidocaine HCl (Buffered Lidocaine 1%) 3 ml STK-MED ONCE .ROUTE ; Start 12/28/19 at 12:34; Stop 12/28/19 at 12:35; Status DC Lidocaine HCl (Buffered Lidocaine 1%) 6 ml 1X ONCE INJ Last administered on 12/28/19at 12:59; Start 12/28/19 at 12:45; Stop 12/28/19 at 12:46; Status DC Furosemide (Lasix) 40 mg DAILY PO Last administered on 12/30/19at 09:45; Start 12/30/19 at 09:00; Stop 12/30/19 at 10:12; Status DC Metoprolol Succinate (Toprol Xl) 12.5 mg DAILY PO Last administered on 12/30/19at 09:44; Start 12/30/19 at 09:00; Stop 12/30/19 at 10:26; Status DC Furosemide (Lasix) 20 mg DAILY PO ; Start 12/31/19 at 09:00 Losartan Potassium (Cozaar) 12.5 mg DAILY PO ; Start 12/31/19 at 09:00; Status UNV Spironolactone (Aldactone) 12.5 mg DAILY PO ; Start 12/31/19 at 09:00; Status UNV Potassium Chloride (Klor-Con) 20 meq 1X ONCE PO ; Start 12/30/19 at 10:15; Stop 12/30/19 at 10:16; Status UNV Clopidogrel Bisulfate (Plavix) 75 mg DAILYWBKFT PO ; Start 12/31/19 at 08:00; Status UNV Active Scripts Active Mirtazapine 7.5 Mg Tablet 1 Tab PO QHS 30 Days Clopidogrel (Clopidogrel Bisulfate) 75 Mg Tablet 1 Tab PO DAILY Aspirin 325 Mg Tablet 81 Mg PO DAILYWBKFT Aldactone (Spironolactone) 25 Mg Tablet 12.5 Mg PO DAILY Losartan Potassium (Losartan Potassium) 25 Mg Tablet 12.5 Mg PO DAILY Potassium Chloride (Potassium Chloride) 10 Meq Capsule.er 20 Meq PO DAILY Flomax (Tamsulosin Hcl) 0.4 Mg Cap.er.24h 0.4 Mg PO QHS Nitrostat (Nitroglycerin) 0.4 Mg Tab.subl 0.4 Mg SL PRN Q5MIN PRN Reported Acetaminophen 325 Mg Tablet 2 Tab PO PRN Q6HRS PRN 30 Days Senna-Docusate Sodium Tablet (Sennosides/Docusate Sodium) 1 Each Tablet 1 Tab PO DAILY 20 Days Zoloft (Sertraline Hcl) 50 Mg Tablet 100 Mg PO DAILY Polyethylene Glycol 3350 2,500 Gm Powder 17 Gm PO DAILY PRN Finasteride 5 Mg Tablet 1 Tab PO DAILY Atorvastatin Calcium 40 Mg Tablet 1 Tab PO DAILY Albuterol Sulfate Conc Neb Soln (Albuterol Sulfate) 2.5 Mg/0.5 Ml Vial.neb 1 Vial NEB Q6HRS PRN Namenda Xr (Memantine Hcl) 28 Mg Cap.spr.24 28 Mg PO DAILY Daily Vitamin (Multivitamin) 1 Each Tablet 1 Each PO DAILY Vitals/I & O Vital Sign - Last 24 Hours 12/29/19 12/29/19 12/29/19 12/29/19 10:40 14:35 16:11 19:01 Temp 97.5 97.8 97.9 97.5 97.8 97.9 Pulse 56 54 76 Resp 20 20 20 B/P (MAP) 94/52 (66) 107/37 (60) 118/50 (72) Pulse Ox 92 92 95 91 O2 Delivery Nasal Cannula Nasal Cannula Nasal Cannula Nasal Cannula O2 Flow Rate 2.0 2.0 2.0 3.0 12/29/19 12/29/19 12/29/19 12/30/19 20:30 20:31 23:26 02:07 Temp 98.3 98.0 98.3 98.0 Pulse 78 61 Resp 18 20 B/P (MAP) 126/60 (82) 146/62 (90) Pulse Ox 96 93 94 O2 Delivery Nasal Cannula Nasal Cannula Nasal Cannula Nasal Cannula O2 Flow Rate 2.0 2.0 3.0 2.0 12/30/19 12/30/19 12/30/19 12/30/19 07:30 07:31 09:43 09:44 Temp 97.9 97.9 Pulse 56 56 56 Resp 20 B/P (MAP) 148/63 (91) 148/63 148/63 Pulse Ox 91 93 O2 Delivery Nasal Cannula Nasal Cannula O2 Flow Rate 2.0 2.0 Intake and Output 12/29/19 12/29/19 12/30/19 15:00 23:00 07:00 Intake Total 420 ml 180 ml Output Total 630 ml 100 ml Balance -630 ml 320 ml 180 ml Justifications for Admission Other Justification Nutrition Consultation Dietary Evaluation: Recommendations by RD: Dietary education by RD, Increase Calorie Intake, Protein supplementation Comments: Continue w/cardiac diet, honor food preferences, provide snacks as requested REC Ensure BID or more often pending pt preference Expected Outcomes/Goals: PO intake to meet >75% est needs Malnutrition Findings: Food and Nutrition Intake (Sev: <50% est energy req 5days Weight Status: Underweight YAQUELIN LUJAN MD Dec 30, 2019 10:40
[2019-12-30] MEDS ORDERED: POTASSIUM CHLORIDE 20 MEQ TABLET.ER. PO ONE (11:00)
[2019-12-30] MEDS ORDERED: SPIRONOLACTONE 25 MG TABLET PO SCH (11:00)
[2019-12-30] MEDS ORDERED: CLOPIDOGREL BISULFATE 75 MG TABLET PO SCH (11:00)
--- NOTE | 2019-12-30 11:11 | DS ---
DATE OF DISCHARGE: 12/30/2019 PROCEDURE: Right-sided thoracentesis, removal of 1.5 liters of fluid. CONSULTANTS: Include Dr. Peterson, Dr. Ivey, Dr. Aguayo. FINAL DIAGNOSES: 1. Acute on chronic systolic congestive heart failure. 2. Ischemic cardiomyopathy. 3. Coronary artery disease with previous coronary angioplasty and stent. 4. Peripheral arterial disease. 5. Alzheimer's disease. 6. Right pleural effusion with right lower lobe lung collapse and he underwent a right-sided thoracentesis, removal of 1.5 liters of fluid. 7. Acute hypoxic respiratory failure. 8. Severe protein-calorie malnutrition. 9. Hyperlipidemia. 10. Hypokalemia, treated. 11. Leukocytosis, resolved. HOSPITAL COURSE: The patient is an 84-year-old white male who is a do not resuscitate. Resident of a [facility], cared for by another physician with a history of ischemic cardiomyopathy, left ventricular ejection fraction of 30-35%. An echocardiogram done earlier this year, who has coronary artery disease with peripheral arterial disease, chronic systolic congestive heart failure, Alzheimer disease, and hyperlipidemia. He had a recent COVID-19 infection about 3 months ago and was [facility] 12/24/2019 with an onset of shortness of breath. He is a poor historian. He was given IV Lasix and felt better and he was subsequently admitted to the hospital, started on oxygen for acute hypoxic respiratory failure. Chest x-ray showed pulmonary vascular congestion, moderate right-sided pleural effusion. Initially received IV Zosyn and Levaquin in the Emergency Room, seen by the Infectious Disease doctor and thought not to have an infection or pneumonia. He was thought to have acute on chronic systolic congestive heart failure. He received IV Lasix with good diuresis. A Bassett catheter was placed to monitor his urine output. He pulled the Bassett catheter out and was not replaced. He had a little bit of blood in the urine at that time which eventually resolved from trauma from the removal of the Bassett catheter. He has significant dementia. He is on oxygen on 2 liters per nasal cannula. A CAT scan of the chest showed that he had a right-sided pleural effusion with passive collapse of the right lower lobe of the lung and underwent a thoracentesis with removal of 1.5 liters of fluid. He was started on losartan and spironolactone and potassium chloride and eventually switched to oral furosemide. His blood pressure was running in the 88 or so. He was asymptomatic. He was lying flat in bed and was not short of breath. Labs today; white count 10.2, hemoglobin 13.9, platelet count 198,000, 77 polys and 10 lymphocytes. Sodium 144, potassium 3.6, chloride 106, CO2 of 35, BUN 30 with creatinine of 1.1, sugar was 147 nonfasting apparently with a calcium of 8.7. because his blood pressure is running low and his spironolactone was decreased to 12.5 mg every day, losartan decreased to 12.5 mg every day, furosemide decreased to 20 mg p.o. daily and his metoprolol was discontinued, his heart rate was in the 50s and his blood pressure was running low. He will be dismissed back to [facility] and will be a do not resuscitate and on a cardiac diet. He will be dismissed on aspirin 81 mg every day, Plavix 75 mg every day, losartan 12.5 mg every day, mirtazapine 7.5 mg at bedtime, spironolactone 12.5 mg every day, Tylenol 650 mg every 6 hours p.r.n., albuterol nebulizer treatments every 6 hours p.r.n., atorvastatin 40 mg every day, finasteride 5 mg every day, Namenda XR 28 mg every day, multiple vitamin once a day, nitroglycerin 0.4 mg sublingual p.r.n. chest pain, MiraLax 17 grams every day in 8 ounces of fluid every day p.r.n. for constipation, Senokot 1 tablet daily, sertraline 100 mg everyday, we are probably going to discontinue the mirtazapine all together as he is on sertraline 100 mg every day. He is on tamsulosin 0.4 mg at bedtime. He is on potassium chloride 20 mEq every day. We will be dismissed to a [facility] today. YAQUELIN LUJAN MD DR: GLENDA/cielo JOB#: [id number] / [id number]
--- NOTE | 2019-12-30 12:07 | PDOC ---
PULMONARY PROGRESS NOTES DATE: 12/30/19 TIME: 12:01 Subjective continues on N/C oxygen Feeling better S/P thoracentsis nusing reports some overnight hypotension No SOA or cough Vitals Vital Signs Date Time Temp Pulse Resp B/P (MAP) Pulse Ox O2 Delivery O2 Flow Rate FiO2 12/30/19 11:55 94 Nasal Cannula 2.0 12/30/19 10:36 52 110/53 (72) 12/30/19 10:27 97.4 16 97.4 ROS: No Nausea, No Chest Pain, No Abdominal Pain, No Increase Cough General: Alert, No acute distress Lungs: Clear, Other Cardiovascular: S1, S2 Abdomen: Soft, Non-tender Neuro Exam: Alert Extremities: No Edema Skin: Warm Labs Laboratory Tests Test 12/28/19 13:00 12/29/19 06:25 12/30/19 09:10 Body Fluid Total Protein 1.6 g/dL (.) Body Fluid Lactate Dehydrogenase 67 IU/L (.) Sodium Level 143 mmol/L (136-145) 144 mmol/L (136-145) Potassium Level 4.2 mmol/L (3.5-5.1) 3.6 mmol/L (3.5-5.1) Chloride Level 107 mmol/L (98-107) 106 mmol/L (98-107) Carbon Dioxide Level 31 mmol/L (21-32) 35 mmol/L (21-32) Anion Gap 5 (6-14) 3 (6-14) Blood Urea Nitrogen 25 mg/dL (8-26) 30 mg/dL (8-26) Creatinine 0.9 mg/dL (0.7-1.3) 1.1 mg/dL (0.7-1.3) Estimated GFR (Cockcroft-Gault) 80.2 63.6 Glucose Level 82 mg/dL (70-99) 147 mg/dL (70-99) Calcium Level 8.9 mg/dL (8.5-10.1) 8.7 mg/dL (8.5-10.1) White Blood Count 10.2 x10^3/uL (4.0-11.0) Red Blood Count 4.42 x10^6/uL (4.30-5.70) Hemoglobin 13.9 g/dL (13.0-17.5) Hematocrit 41.8 % (39.0-53.0) Mean Corpuscular Volume 95 fL (79-100) Mean Corpuscular Hemoglobin 31 pg (25-35) Mean Corpuscular Hemoglobin Concent 33 g/dL (31-37) Red Cell Distribution Width 16.5 % (11.5-14.5) Platelet Count 198 x10^3/uL (140-400) Neutrophils (%) (Auto) 77 % (31-73) Lymphocytes (%) (Auto) 10 % (24-48) Monocytes (%) (Auto) 6 % (0-9) Eosinophils (%) (Auto) 6 % (0-3) Basophils (%) (Auto) 1 % (0-3) Neutrophils # (Auto) 7.8 x10^3/uL (1.8-7.7) Lymphocytes # (Auto) 1.1 x10^3/uL (1.0-4.8) Monocytes # (Auto) 0.6 x10^3/uL (0.0-1.1) Eosinophils # (Auto) 0.6 x10^3/uL (0.0-0.7) Basophils # (Auto) 0.1 x10^3/uL (0.0-0.2) Laboratory Tests Test 12/30/19 09:10 White Blood Count 10.2 x10^3/uL (4.0-11.0) Red Blood Count 4.42 x10^6/uL (4.30-5.70) Hemoglobin 13.9 g/dL (13.0-17.5) Hematocrit 41.8 % (39.0-53.0) Mean Corpuscular Volume 95 fL (79-100) Mean Corpuscular Hemoglobin 31 pg (25-35) Mean Corpuscular Hemoglobin Concent 33 g/dL (31-37) Red Cell Distribution Width 16.5 % (11.5-14.5) Platelet Count 198 x10^3/uL (140-400) Neutrophils (%) (Auto) 77 % (31-73) Lymphocytes (%) (Auto) 10 % (24-48) Monocytes (%) (Auto) 6 % (0-9) Eosinophils (%) (Auto) 6 % (0-3) Basophils (%) (Auto) 1 % (0-3) Neutrophils # (Auto) 7.8 x10^3/uL (1.8-7.7) Lymphocytes # (Auto) 1.1 x10^3/uL (1.0-4.8) Monocytes # (Auto) 0.6 x10^3/uL (0.0-1.1) Eosinophils # (Auto) 0.6 x10^3/uL (0.0-0.7) Basophils # (Auto) 0.1 x10^3/uL (0.0-0.2) Sodium Level 144 mmol/L (136-145) Potassium Level 3.6 mmol/L (3.5-5.1) Chloride Level 106 mmol/L (98-107) Carbon Dioxide Level 35 mmol/L (21-32) Anion Gap 3 (6-14) Blood Urea Nitrogen 30 mg/dL (8-26) Creatinine 1.1 mg/dL (0.7-1.3) Estimated GFR (Cockcroft-Gault) 63.6 Glucose Level 147 mg/dL (70-99) Calcium Level 8.7 mg/dL (8.5-10.1) Medications Active Scripts Medications Dose Route/Sig Max Daily Dose Days Date Category Acetaminophen 325 Mg Tablet 2 Tab PO PRN Q6HRS PRN 30 12/24/19 Reported Senna-Docusate Sodium Tablet (Sennosides/Docusate Sodium) 1 Each Tablet 1 Tab PO DAILY 20 12/24/19 Reported Ondansetron Odt (Ondansetron) 4 Mg Tab.rapdis 1 Tab PO PRN Q6-8HRS 12/24/19 Reported Mirtazapine 15 Mg Tab.rapdis 1 Tab PO QHS 30 12/24/19 Reported Cipro (Ciprofloxacin Hcl) 500 Mg Tablet 1 Tab PO BID 2 12/24/19 Reported Zoloft (Sertraline Hcl) 50 Mg Tablet 100 Mg PO DAILY 06/12/19 Reported Polyethylene Glycol 3350 2,500 Gm Powder 17 Gm PO DAILY PRN 06/12/19 Reported Finasteride 5 Mg Tablet 1 Tab PO DAILY 06/12/19 Reported Atorvastatin Calcium 40 Mg Tablet 1 Tab PO DAILY 06/12/19 Reported Albuterol Sulfate Conc Neb Soln (Albuterol Sulfate) 2.5 Mg/0.5 Ml Vial.neb 1 Vial NEB Q6HRS PRN 06/12/19 Reported Acetaminophen 325 Mg Tablet 2 Tab PO PRN Q6HRS PRN 30 06/12/19 Reported Potassium Chloride (Potassium Chloride) 10 Meq Capsule.er 10 Meq PO DAILY 10/03/16 Reported Namenda Xr (Memantine Hcl) 28 Mg Cap.spr.24 28 Mg PO DAILY 10/03/16 Reported Flomax (Tamsulosin Hcl) 0.4 Mg Cap.er.24h 0.4 Mg PO QHS 02/23/16 Rx Nitrostat (Nitroglycerin) 0.4 Mg Tab.subl 0.4 Mg SL PRN Q5MIN PRN 02/23/16 Rx Daily Vitamin (Multivitamin) 1 Each Tablet 1 Each PO DAILY 01/10/14 Reported Impression . 1, Acute on chronic respiratory failure secondary to acute systolic congestive heart failure, right pleural effusion, atelectasis.RLL caused by effusion-- S/P right thoracentesis with 1.5 liters removed 2. Abnormal chest x-ray, effusion/infiltrate/atelectasis. 3. Ischemic cardiomyopathy. 4. Acute systolic congestive heart failure. 5. Chronic obstructive pulmonary disease. 6. Alzheimer's. 7. Paroxysmal atrial fibrillation, now in sinus rhythm. Plan . PLAN AND RECOMMENDATIONS: 1. Titrate FiO2 to keep O2 saturation 92%, remains on N/C oxygen 2 liters 2. cont. bronchodilator. 3. cont. Lasix , monitor Blood pressure 4. He had moderate to large right pleural effusion with collapse of RLL. now s/p thoracentesis. 1.5 litres removed. 5. Follow ID recommendations D/W RN and Dr. Head Ok to D/C to SNF today from our standpoint CODE: MICHAEL EGAN MD Dec 30, 2019 12:07
--- NOTE | 2019-12-30 17:16 | NUR ---
Discharge Note: CRISTOFER RATLIFF Discharge instructions and discharge home medications reviewed with Other facility and a copy given. All questions have been answered and understanding verbalized. The following instructions and handouts were given: wound care, diet, meds, confused, patient returning to facility. Report given to Rachelle at 1600. Discontinued lines and drains: IV removed. No lines present at discharge.. Patient discharged to [place]. Picked up by there transport people.
[2019-12-31] MEDS ORDERED: FUROSEMIDE 40 MG TABLET. PO SCH (09:00)
[2019-12-31] MEDS ORDERED: LOSARTAN POTASSIUM 25 MG TABLET. PO SCH (09:00)
== END 2019-12-30 16:08 | DRG 291 ==
LOC: ER 21:55 → 2 SOUTH 12-24 01:38
PROVIDERS: ADMIT Internal Medicine; ATTEND Internal Medicine
PROC: 0W993ZZ Drainage of Right Pleural Cavity, Percutaneous Approach (ICD-10-PCS; principal; 2019-12-28)
DX: I11.0 Hypertensive heart disease with heart failure (principal); J96.01 Acute respiratory failure with hypoxia; E43 Unspecified severe protein-calorie malnutrition; Z68.1 Body mass index [BMI] 19.9 or less, adult; J98.11 Atelectasis; Z20.828 Contact with and (suspected) exposure to other viral communicable diseases; I50.23 Acute on chronic systolic (congestive) heart failure; I25.5 Ischemic cardiomyopathy; Z95.5 Presence of coronary angioplasty implant and graft; I25.10 Atherosclerotic heart disease of native coronary artery without angina pectoris; I73.9 Peripheral vascular disease, unspecified; F02.80 Dementia in other diseases classified elsewhere, unspecified severity, without behavioral disturbance, psychotic disturbance, mood disturbance, and anxiety; G30.9 Alzheimer's disease, unspecified; E78.5 Hyperlipidemia, unspecified; I48.0 Paroxysmal atrial fibrillation; J44.9 Chronic obstructive pulmonary disease, unspecified; R00.1 Bradycardia, unspecified; E87.6 Hypokalemia; Z66 Do not resuscitate; Z79.899 Other long term (current) drug therapy; Z79.82 Long term (current) use of aspirin; Z79.02 Long term (current) use of antithrombotics/antiplatelets; Z98.62 Peripheral vascular angioplasty status; Z86.19 Personal history of other infectious and parasitic diseases
CPT/HCPCS: 32555; 36415; 71045; 71250; 80048; 80053; 80061; 81001; 83605; 83615; 83690; 83735; 83880; 84157; 84484; 85025; 85610; 85730; 87040; 87071; 87075; 87086; 88175; 88305; 93005; 94640; 94760; 96365; 96375; 99285; C1892; J1940; J1956; J2543; J3490; 97110-GO; 97110-GP; 97530-GO; 97530-GP; 97535-GO; G0378; U0003-CS